=== PATIENT | female | born 1990 | race Caucasian/White ===

== ENCOUNTER 2017-10-24 02:15 | Emergency (ER) | payer BC, SELFPAY ==
[2017-10-24 02:17] VITALS: BP 139/81; PULSE 68; RESP 15; TEMP 36.5; O2SAT 98; BMI 21.9
--- NOTE | 2017-10-24 03:15 | RAD_ITS ---
STUDY: X-RAY CHEST REASON FOR EXAM: Female, 27 years old. Cough TECHNIQUE: 2 views COMPARISON: None. FINDINGS: The lungs are clear and expanded. There is no demonstrated pleural abnormality. Normal size heart. Normal mediastinum and brandi. Normal visualized pulmonary arteries. Normal visualized aortic arch and descending thoracic aorta. Normal visualized thoracic spine. Normal visualized ribs, clavicles, and shoulders. There is no demonstrated abnormality of the visualized soft tissue structures of the upper abdomen. RAD/Chest PA and Lateral IMPRESSION: Normal x-ray examination of the chest. No acute findings in the lungs Electronically Signed: Buddy Gilbert, at 3:57 EST Tel , Service support ,
[2017-10-24] MEDS: 0.9% Normal Saline 1,000 ML 999 ML IV (03:35)
[2017-10-24] MEDS: Ketorolac 30 MG/ML Syringe IV (03:35)
[2017-10-24 03:45] LABS: Absolute Neutrophil Count 9.3 X10^3/uL (2.0-7.7); Basophil# 0.06 X10^3/uL; Basophil% 0.5 % (0-1); Eosinophil# 0.36 X10^3/uL; Hemoglobin 13.1 g/dl (12.0-15.0); Lymphocyte % 10.1 % (19-41); Mean Corp Hgb Conc 34.5 g/gl (32-36); Mean Corpuscular Hgb 29.8 pg (27.0-32.0); Mean Corpuscular Volume 86.4 fL (81-99); Mean Platelet Vol. 9.5 fl (6.2-12.0); Monocyte# 0.89 X10^3/uL; Monocyte% 7.5 % (0-10); Neutrophil # 9.32 X10^3/uL (2.7-7.7); Neutrophil % 78.7 % (47-70); Platelet Count 211 K/mm3 (150-450); RBC Distribution Width CV 12.4 % (11.6-14.6); RBC Distribution Width SD 38.8 fl (35.1-43.9); White Blood Count 11.9 K/mm3 (4.4-11.0)
[2017-10-24 03:46] LABS: POSITIVE COUNT NO; POSITIVE DIFFERENTIAL NO; POSITIVE MORPHOLOGY NO
[2017-10-24 03:58] LABS: ALB/GLOB Ratio 1.1 RATIO (0.9-2.4); AST(SGOT) 129 U/L (15-37); Alanine Aminotransfer ALT/SGPT 100 U/L (13-56); Albumin, Serum 3.6 g/dL (3.2-5.0); Alkaline Phosphatase 71 U/L (45-117); Anion Gap 8 (5-15); BUN 11 mg/dL (7-18); BUN/Creat Ratio 12.7 RATIO (10-20); Calcium,Total 8.3 mg/dL (8.5-10.1); Chloride 105 mmol/L (98-107); Creatinine, Serum 0.87 mg/dL (0.55-1.02); EST Glomerular Filtration Rate 84 mL/min (>60); Est Glom Filt Rate - Afr Amer 101 mL/min (>60); Estimated Creatinine Clearance 95.29 ml/min; Globulin 3.3 g/dL (2.2-4.2); Glucose 103 mg/dL (74-106); Lipase 1128 U/L (73-393); Potassium 3.9 mmol/L (3.5-5.1); Protein, Total 6.9 g/dL (6.4-8.2); Sodium Level 140 mmol/L (136-145)
[2017-10-24 04:01] LABS: Pregnancy, Serum, hCG Quali. NEGATIVE Negative (0-9 Nonpreg)
--- NOTE | 2017-10-24 04:16 | US_ITS ---
STUDY: ULTRASOUND GALLBLADDER REASON FOR VISIT: Female, 27 years old. Abdominal pain TECHNIQUE: Ultrasound evaluation of the gallbladder was performed with real-time and static davis-scale imaging. TECHNICAL QUALITY: Adequate. COMPARISON: None. FINDINGS: Gallbladder: Normal distended gallbladder. The gallbladder wall measures 1.9 mm. There is a negative sonographic Arellano's sign. There is no pericholecystic fluid. There are no gallstones. Common Bile Duct (C.B.D.): The common bile duct measures 1.8 mm. US/Gallbladder IMPRESSION: Normal gallbladder ultrasound examination. Electronically Signed: Buddy Gilbert, at 6:01 EST Tel , Service support ,
--- NOTE | 2017-10-24 06:28 | ED.VISSUMM ---
- ER Visit Summary Date of Service: 10/24/17 Chief Complaint: Sore throat History of Present Illness: The patient is a 27 F who complains of 3 days of sore throat and fever to 101 congestion rhinorrhea and cough. She does note muscle and joint aches. However tonight she developed burning epigastric abdominal pain. No vomiting or diarrhea. Physical Examination: Afebrile vitals are unremarkable Moist mucous membranes Heart regular rate and rhythm Lungs are clear Abdomen soft there is no reproducible tenderness she is nondistended Alert Test Results: Laboratory studies notable for white blood cell count 11.9 ALT 100 AST 129 lipase 1128. negative. Right upper quadrant ultrasound normal. Emergency Department Course and Treatment: She is currently on minocycline for acne. Therefore initially given reports of burning epigastric abdominal pain and no reproducible tenderness I felt this may be gastritis. However she had no improvement with a GI cocktail. Therefore she was given IV fluids Toradol and laboratory studies were obtained. She reported significant improvement in her symptoms. Given elevated LFTs and lipase I was concerned for possible gallstone pancreatitis. A right upper quadrant ultrasound was normal. I discussed hospital observation with the patient for symptom control repeat labs. The patient does not wish to stay. After discussion of risks and benefits she decided to leave AGAINST MEDICAL ADVICE. She stands she is welcome to return at any point. She was referred to general surgery and also advised to call her primary care physician for a follow-up appointment as soon as possible. Patient discharged AGAINST MEDICAL ADVICE. Treatment Plan: [] Disposition: AGAINST MEDICAL ADVICE Impression: Pancreatitis This note was generated with [employer] dictation software. It may contain incorrect words, spelling, and punctuation that were not noted in review of the chart prior to signing ED Disposition - Plan for ED Patient: Chief Complaint: General Illness Referrals: Alejo Sands [Primary Care Provider] -
--- NOTE | 2017-10-24 06:30 | ED.DEP ---
ED Disposition - Plan for ED Patient: Chief Complaint: General Illness Instructions: ED Pancreatitis Referrals: Alejo Sands [Primary Care Provider] -
[2017-10-24 06:45] VITALS: BP 110/67; PULSE 68; RESP 17; O2SAT 98
--- NOTE | 2017-10-24 06:46 | ED.RN ---
IV DC'ED, CATHETER INTACT, SMALL GAUZE DRESSING PLACED. DISCHARGE INSTRUCTIONS GIVEN TO AND REVIEWED WITH PATIENT, PATIENT DENIES QUESTIONS OR CONCERNS AND VOICES UNDERSTANDING OF DISCHARGE INSTRUCTIONS. AMA PAPERS SIGNED AND REVIEWED WITH PATIENT, PATIENT AMBULATES OUT OF ROOM WITHOUT DIFFICULTY.
== END 2017-10-24 06:46 | disposition home or self-care (01) ==
PROVIDERS: Emergency Provider Emergency Medicine; Family Provider Nurse Practitioner Family; PCP Nurse Practitioner Family
DX: K85.90 Acute pancreatitis without necrosis or infection, unspecified (principal); L70.9 Acne, unspecified; Z79.899 Other long term (current) drug therapy
CPT/HCPCS: 71046; 76705; 80053; 83690; 84703; 85025; 96361; 96374; 99284; J7030

== ENCOUNTER → 2017-10-28 16:40 | Outpatient (CLI) | payer BC, SELFPAY ==
[2017-10-28 18:03] LABS: Amylase 62 U/L (25-115); Lipase 159 U/L (73-393)
== END ==
PROVIDERS: Family Provider Nurse Practitioner Family; PCP Nurse Practitioner Family; Visit Provider Nurse Practitioner Family
DX: R74.8 Abnormal levels of other serum enzymes (principal)
CPT/HCPCS: 36415; 82150; 83690

== ENCOUNTER → 2017-11-25 08:50 | Outpatient (CLI) | payer BC, SELFPAY ==
[2017-11-25 10:19] LABS: Internal QC Validated? YES +Cl - CLEAR BKGD; Pregnancy, Urine Negative Negative
== END ==
PROVIDERS: Family Provider Nurse Practitioner Family; PCP Nurse Practitioner Family; Visit Provider Physician Assistant
DX: L70.0 Acne vulgaris (principal); Z79.899 Other long term (current) drug therapy
CPT/HCPCS: 81025

== ENCOUNTER → 2017-12-30 08:31 | Outpatient (CLI) | payer BC, SELFPAY ==
[2017-12-30 10:22] LABS: Internal QC Validated? YES +Cl - CLEAR BKGD; Pregnancy, Urine Negative Negative
== END ==
PROVIDERS: Family Provider Nurse Practitioner Family; PCP Nurse Practitioner Family; Visit Provider Physician Assistant
DX: L70.0 Acne vulgaris (principal); Z79.899 Other long term (current) drug therapy
CPT/HCPCS: 81025

== ENCOUNTER → 2018-01-27 09:10 | Outpatient (CLI) | payer BC, SELFPAY ==
--- NOTE | 2018-01-27 09:14 | RAD_ITS ---
STUDY: AIR-CONTRAST UPPER GI SERIES. REASON FOR EXAM: Female, 27 years old. Abdominal and epigastric pain. FLUOROSCOPY TIME (if supplied): (0:46) minutes/seconds TECHNIQUE: The patient ingested barium. Multiple images of the esophagus, stomach and duodenum were obtained. COMPARISON: None. FINDINGS: The esophagus is unremarkable. There is no evidence of gastroesophageal reflux. No obstruction is seen. The stomach and duodenum are unremarkable. There is no evidence of ulceration. No mass lesion is seen. RAD/Upper GI Series Only IMPRESSION: Unremarkable air contrast upper G I series. Electronically Signed: Walter Sweet MD at 11:08 EDT Tel [phone], Service support ,
== END ==
PROVIDERS: Family Provider Nurse Practitioner Family; PCP Nurse Practitioner Family; Visit Provider Nurse Practitioner Family
DX: R10.13 Epigastric pain (principal)
CPT/HCPCS: 74246

== ENCOUNTER → 2018-01-31 11:53 | Outpatient (CLI) | payer BC, SELFPAY ==
--- NOTE | 2018-01-31 11:55 | NM_ITS ---
Procedure: Hepatobiliary scan with ejection fraction. History: Abdominal pain. Comparison: Ultrasound 10/24/2017 Technique: Patient was given a dose of 5.2 mCi technetium Choletec. Imaging was performed for approximately 90 minutes Findings: There is normal tracer uptake by liver. Common bile duct activity is seen by 10 minutes. Small bowel activity seen by 30 minutes. Gallbladder activity is first seen by 10 minutes and increases normally over the course of the exam. Ejection fraction after the administration of a fatty meal is 26%, below normal limits. NM/Hepatobilliary Img w/Pharm Int IMPRESSION: Normal hepatobiliary scan. Normal gallbladder activity. Abnormally low ejection fraction of 26%. Note however that normal ejection fraction values were established for CCK injection rather than oral fatty meal. Electronically Signed: Vinod Falcon MD at 23:25 EDT , Service support ,
== END ==
PROVIDERS: Family Provider Nurse Practitioner Family; PCP Nurse Practitioner Family; Visit Provider Nurse Practitioner Family
DX: K82.8 Other specified diseases of gallbladder (principal)
CPT/HCPCS: 78227; A9537

== ENCOUNTER → 2018-02-15 08:19 | Outpatient (CLI) | payer BC, SELFPAY ==
--- NOTE | 2018-02-15 08:19 | DT_ITS ---
This patient was seen during an EMR downtime February 10, 2018 - February 17, 2018. This patient may have a combination of paper and electronic documentation or all paper documentation. All documentation is viewable within the e-chart portion of [facility] for each patient visit.
[2018-02-15 09:39] LABS: Internal QC Validated? YES +Cl - CLEAR BKGD; Pregnancy, Urine Negative Negative
== END ==
PROVIDERS: Family Provider Nurse Practitioner Family; PCP Nurse Practitioner Family; Visit Provider Physician Assistant
DX: L70.0 Acne vulgaris (principal); L55.0 Sunburn of first degree; Z79.899 Other long term (current) drug therapy
CPT/HCPCS: 81025

== ENCOUNTER 2018-03-03 05:37 | Day surgery (SDC) | payer BC, SELFPAY ==
[2018-03-03] VITALS (8 sets, daily range): BP systolic 110–128; BP diastolic 62–77; PULSE 58–90; RESP 14–16; TEMP 36.6–36.8; O2SAT 94–100; BMI 24.4
--- NOTE | 2018-03-03 05:44 | EKG12_ITS ---
Test Reason : PRE-OP Blood Pressure : / mmHG Vent. Rate : 064 BPM Atrial Rate : 064 BPM P-R Int : 158 ms QRS Dur : 094 ms QT Int : 424 ms P-R-T Axes : 022 031 021 degrees QTc Int : 437 ms Normal sinus rhythm Normal ECG Confirmed by SINAN FORTUNE, NILSON ([id number]), clinical editor ADAM CHARLTON ([id number]) on 03/07/2018 10:03:38 AM Referred By: Elvis Spencer Confirmed By:NILSON MENON MD
[2018-03-03 06:08] LABS: Internal QC Validated? YES +Cl - CLEAR BKGD; Pregnancy, Urine Negative Negative
--- NOTE | 2018-03-03 07:04 | PCM.DC.GS ---
Discharge Diet: Light diet - advance as tolerated - if you have questions about your diet instructions, please talk to you doctor. Discharge Activity: May Not Drive - for 1 week or while taking narcotic pain medicine. May shower in (days): 1 Lifting Restrictions: 10 pounds Call your doctor if your incision/area has: Continuous Slow Oozing, Sudden Increased Bleeding, Increased Pain/ Swelling, Increased Redness, Foul Smelling Discharge Call your doctor if you observe: Fever of 101 or Higher Suture Line Care: Avoid Pulling/Pushing, Avoid Pinching/Bending Additional Dressing/Incision Instructions:: Change or remove dressing in 4 days. Leave steri-strips in place for 1 week. Allergies/Adverse Reactions: Allergies Penicillins Allergy (Verified 03/01/18 09:25) Hives Medications to take at Discharge norgestimate 0.25 mg-ethinyl estradiol 35 mcg tablet 1 tab PO QDAY 02/24/18 Hydrocodone Bitart/Apap 5-325 [[place] 5MG-325MG] 1 tablet PO Q6H PRN PRN 2 Days #10 tablet 03/03/18 The following prescriptions were given: Hydrocodone Bitart/Apap 5-325 [[place] 5MG-325MG] 1 tablet PO Q6H PRN PRN 2 Days #10 tablet PRN Reason: Pain Primary Care Physician: Alejo Sands, ADAPTIVE PHYSICAL EDUCATION SPECIALIST-C [Primary Care Provider] - Please Follow Up With: Elvis Spencer MD - [phone] When: Call to make an appointment to be seen in about 10 days.
--- NOTE | 2018-03-03 07:15 | GALL_PTH ---
PATIENT: FERNY GRANT LOC: [facility] [place] U#:[id number] AGE/SX: 27/F ROOM: RE03/03/[address]: Dr. Elvis Spencer MD : 1990 BED: DIS: 03/03/2018 SPEC #: [id number] RECD: 03/04/18 07:16 STATUS: LILLY KAMALA #: [id number] COCO: 03/03/18 07:[address]: Elvis Spencer DEPT: SURGICAL PATHOLOGY RECD BY: Alexys Porter ENTERED: 03/04/18 11:01 SP TYPE: HORTENCIA RIVERS DR: Alejo Sands, ETL ANALYST-C Tissues: Gallbladder, NOS Procedures: Surgery Specimen Level III HEADER OPERATION: Laparoscopic cholecystectomy with intraoperative cholangiogram PRE-OP DIAGNOSIS: Gallstone pancreatitis TISSUE SUBMITTED: Gallbladder MICROSCOPIC DIAGNOSIS Gallbladder: Chronic cholecystis. No stones are identified in the container or in the gallbladder. A pericystic benign lymph node with reactive changes. SJ:andra 03/05/18 MICROSCOPIC DESCRIPTION Slides are reviewed. GROSS DESCRIPTION Received is one container labeled with the patient's name and designated gallbladder. The specimen consists of a gallbladder measuring 6 cm in length and up to 3 cm in diameter. The external surface is pink-rasmussen, smooth and glistening for the most part. Focally it is granular, hemorrhagic and contains cautery artifact. The gallbladder contains green-yellow mucoid bile and no stones are identified in the container or in the gallbladder. The mucosa is bile-stained and without any mass lesions. The gallbladder wall measures up to 0.2 cm in thickness. Also present close to the cystic duct is an ovoid piece of pink soft tissue, possible lymph node measuring 1 cm in greatest dimension. Door Liner Helper sections from the gallbladder and the cystic duct including possible lymph node are submitted in one cassette. / INDU:andra 03/03/18 TC:3 CPT: 58912 More sections of cystic duct and gallbladder wall is submitted in cassette #2. INDU:andra 03/05/18
--- NOTE | 2018-03-03 07:15 | RAD_ITS ---
STUDY: INTRAOPERATIVE CHOLANGIOGRAM. REASON FOR EXAM: Female, 27 years old. Laparoscopic cholecystectomy. FLUOROSCOPY TIME (if supplied): (15.7 seconds) minutes/seconds TECHNIQUE: An intraoperative quadrant was performed by the surgeon. Imaging was submitted. COMPARISON: None. FINDINGS: Contrast was injected into the cystic duct. The visualized intrahepatic biliary ducts and common bile duct are unremarkable. No intraluminal filling defect is seen. There is free flow of contrast into the duodenum. RAD/Cholangiogram/ O R,Initial IMPRESSION: Unremarkable intraoperative cholangiogram. Electronically Signed: Walter Sweet MD at 9:24 EDT Tel [phone], Service support ,
[2018-03-03] MEDS: Bupivacaine Mpf 0.5% 30 ML VIAL (08:00)
--- NOTE | 2018-03-03 08:24 | OP.PCM_ITS ---
Problem List (1) Gallstone pancreatitis Status: Acute Report of Operation Date of Procedure: 03/03/18 Pre-Operative Diagnosis: Gallstone pancreatitis Post-Operative Diagnosis: Same Surgery/Procedure Performed:: Laparoscopic cholecystectomy with cholangiography Description of Surgical Findings:: Timeout and informed consent was obtained. 27-year-old female was taken to the operating room. She was placed supine on the table. She underwent general endotracheal intubation anesthesia. Clindamycin 900 mg are given intravenous preoperatively. The abdomen was sterilely prepped and draped. 0.5% Marcaine was used as a local anesthetic. Throughout the procedure a total of 30 cc was used. Skin sites were pre-anesthetized. A vertical infraumbilical incision was created. Holding sutures of 0 Vicryl placed. Veress needle inserted. The abdomen was insufflated with CO2 to a pressure of 10 mmHg pressure. Primary trocar inserted. Timeout scope inserted. No evidence of any trocar injuries. Under conization 500 ports were placed in the epigastric and right upper quadrant area and an alligator clip in the right lateral abdomen. The abdomen was inspected there was no evidence of any superficial abnormalities there were some loose adhesions of omentum to the gallbladder. These gallbladder adhesions were dissected free after the alligator clip was used to help distract and left the right lobe of the liver. Hemoclips were used where needed for hemostasis. The infundibular of the gallbladder was carefully and tediously dissected free. There was a very dominant right hepatic artery. The cystic artery was quite foreshortened. The critical view was achieved. A Hemoclip was placed on the cystic duct stump incision made in the cystic duct and through a 14-gauge Angiocath and cholangiogram catheter was inserted. Fluoroscopic control can plan transfer obtained demonstrating normal ductal anatomy and free flow into the small bowel. The cholangiogram catheter was removed and 2 hemoclips were placed on the cystic duct stone prior to transecting it. The cystic artery was clipped twice proximally to prior to transecting it. There was felt to be a posterior cystic artery or potentially Dr. Kusilvak but it was secured with a Hemoclip as well. The gallbladder was dissected free from the liver bed using electrocautery. Complete hemostasis was intact. Gallbladder was placed in a retrieval bag. The hepatic bed was carefully inspected was noted to be hemostatic there was absolutely no evidence of any bile leakage. The gallbladder was exited at the umbilicus. The remaining trochars removed under visualization. The abdomen was allowed to deflate of the CO2. The fascia at the umbilicus approximated with a figure 8 suture of 0 Vicryl. Skin edges were approximated with interrupted 4-0 Monocryl. Steri-Strips and Telfa and OpSite dressings applied. Sponge and instrument and needle counts were reported to the surgeon be correct. The patient tolerated the procedure well was taken to the recovery area in satisfactory condition. Specimens gallbladder. Drains none. Blood loss minimal. Elvis Spencer M.D., F.A.C.S. Type of Anesthesia:: General Anesthesiologist: Paula Bran
[2018-03-03] MEDS: HYDROcodone Bitartrate/Apap 5/325 Tablet PO (10:17)
== END 2018-03-03 11:54 | disposition home or self-care (01) ==
LOC: SDC 05:39 → AC 07:04
PROVIDERS: Family Provider Nurse Practitioner Family; PCP Nurse Practitioner Family; Visit Provider Surgery
PROC: (CPT 47610; principal; 2018-03-03 06:55)
DX: K81.1 Chronic cholecystitis (principal); J45.909 Unspecified asthma, uncomplicated; Z87.891 Personal history of nicotine dependence
CPT/HCPCS: 47563; 74300; 76000; 81025; 88304; 93005; J7120; J2405

== ENCOUNTER 2018-11-11 11:11 | Emergency (ER) | payer MEDICAID, SELFPAY ==
[2018-11-11 11:12] VITALS: BP 121/68; PULSE 98; RESP 12; TEMP 36.9; O2SAT 95; BMI 25.7
--- NOTE | 2018-11-11 11:36 | CT_ITS ---
STUDY: CT ABDOMEN AND PELVIS WITH CONTRAST REASON FOR EXAM: Female, 28 years old. Right upper quadrant pain. Anorexia. Nausea and vomiting. RADIATION DOSAGE (If Supplied By Facility): CTDIvol = ( 14.38 ) mGy, DLP = ( 815.51 ) mGycm TECHNIQUE: Transaxial images were obtained from the dome of the diaphragm to the symphysis pubis with oral contrast. Isovue 300 100 IV/Oral was administered. Sagittal and coronal images were reconstructed. Individualized dose optimization techniques were used for this CT. COMPARISON: None. FINDINGS: The visualized lung bases are unremarkable. The visualized portions of the heart are within normal limits. Normal liver. The patient is status post cholecystectomy. Normal spleen. Normal pancreas. Normal bilateral adrenal glands. Normal right kidney. Normal left kidney. There is a small hiatal hernia. Normal small intestine. Normal colon. The appendix is visualized and appears normal. Normal abdominal aorta. Normal inferior vena cava. Normal retroperitoneum. Normal urinary bladder. Small follicles are seen in both ovaries. Normal abdominal wall. Normal osseous structures. CT/Abdomen/Pelvis WITH Contrast IMPRESSION: Normal enhanced CT of the abdomen and pelvis. Electronically Signed: Walter Sweet, at 13:48 EST , Service support ,
[2018-11-11] MEDS: Ondansetron 4 MG/2 ML Vial IV (12:00)
[2018-11-11] MEDS: Morphine 4 MG/ML Syringe IV (12:01)
[2018-11-11] MEDS: 0.9% Normal Saline 1,000 ML 1000 ML IV (12:02)
[2018-11-11 12:14] LABS: Absolute Lymphocyte Count 0.48 X10^3/ul (0.83-4.51); Absolute Neutrophil Count 7.8 X10^3/uL (2.0-7.7); Basophil# 0.02 X10^3/uL; Basophil% 0.2 % (0-1); Eosinophil# 0.15 X10^3/uL; Eosinophils% 1.7 % (0-5); Hematocrit 43.8 % (37-47); Hemoglobin 14.5 g/dl (12.0-15.0); Lymphocyte # 0.48 X10^3/ul (4.0); Lymphocyte % 5.4 % (19-41); Mean Corp Hgb Conc 33.1 g/gl (32-36); Mean Corpuscular Volume 87.6 fL (81-99); Mean Platelet Vol. 9.3 fl (6.2-12.0); Monocyte# 0.36 X10^3/uL; Monocyte% 4.1 % (0-10); Neutrophil # 7.84 X10^3/uL (2.7-7.7); Neutrophil % 88.5 % (47-70); Platelet Count 189 K/mm3 (150-450); RBC Distribution Width CV 12.8 % (11.6-14.6); White Blood Count 8.9 K/mm3 (4.4-11.0)
[2018-11-11 12:15] LABS: Differential Indicated SCAN CRITERIA MET; POSITIVE COUNT NO; POSITIVE DIFFERENTIAL YES; POSITIVE MORPHOLOGY NO
[2018-11-11 12:35] LABS: Anion Gap 10 (5-15); BUN 16 mg/dL (7-18); Calcium,Total 8.3 mg/dL (8.5-10.1); Chloride 106 mmol/L (98-107); Creatinine, Serum 0.84 mg/dL (0.55-1.02); EST Glomerular Filtration Rate 86 mL/min (>60); Est Glom Filt Rate - Afr Amer 104 mL/min (>60); Estimated Creatinine Clearance 101.48 ml/min; Glucose 125 mg/dL (74-106); Sodium Level 141 mmol/L (136-145)
--- NOTE | 2018-11-11 12:40 | ED.VIS.GEN ---
History of Present Illness Chief Complaint: Abd Pain Detail of Chief Complaint: Abdominal pain with nausea and vomiting Informant: Patient, Family Onset: Yesterday Context: Sudden Onset Timing: Continuous Quality: Sharp Location: Predominantly right side Current Severity: Moderate Maximum Severity: Severe Worsened by: Walking Relieved by: Nothing Associated Symptoms: Cold sweats, anorexia Narrative: [age]-year-old female who presents with right-sided abdominal pain with nausea, vomiting and anorexia. She reports cold sweats. She is status post cholecystectomy. She denies cardiac respiratory symptoms. She denies history of renal ureterolithiasis. She denies dysuria, frequency, urgency or hematuria. She states this pain reminds her of the pain she had prior to removal of her gallbladder by Dr. Jaren Escobar. There is no history of trauma. She denies rash or skin lesions. Prior similar symptoms: Yes - Please read Recent Illness/Hospitalization: No Past Medical History - Allergies and Home Meds Allergies/Adverse Reactions: Allergies Penicillins Allergy (Verified 11/11/18 11:12) Hives Primary Care Physician: Alejo Sands, HEAD WOOD GRINDER-C [Primary Care Provider] - As Needed Prior records reviewed: Yes Surgical History: cholecystectomy Lives: With Family Smoking Status: Never smoker Alcohol: Rare Drugs: None Review of Systems General: Reports: Malaise, Sweats. Denies: Chills, Fever, Weight loss Eyes: Denies: Visual changes - bilaterally, Blurred Vision - bilaterally, Diplopia ENT: Denies: Bilateral ear pain, Rhinorrhea, Sore throat Cardiovascular: Denies: Chest pain, Palpitations Respiratory: Denies: Dyspnea, Cough, Dyspnea on exertion Gastrointestinal: Reports: Abdominal pain, Nausea, Vomiting. Denies: Diarrhea, Constipation, Melena, Hematochezia Genitourinary: Denies: Dysuria, Hematuria, Frequency Musculoskeletal: Denies: Myalgias, Arthralgias, Neck pain, Back pain, Swelling, Extremity Pain Skin: Denies: Rash, Wounds Neurological: Denies: Headache, Weakness, Numbness Endocrine: Denies: Polyuria, Polydipsia Hematologic: Denies: Easy bruising, Easy bleeding Physical Exam Vital Signs/Narrative: Vital Signs Temp Pulse Resp BP Pulse Ox 11/11/18 11:12 98.4 F 98 12 121/68 H 95 Inital Vital Signs reviewed: Yes General: Well nourished, Well developed, Acute Distress Head: Normocephalic, Atraumatic. Negative for: Trauma Eyes: Perrl, EOMI. Negative for: Pale conjunctiva, Scleral icterus ENT: No rhinorrhea, TM's clear, Dry mucous membranes, Nasal congestion Neck: Supple, Nontender, No lymphadenopathy, No JVD Cardiovascular: Regular rate, Regular rhythm, No murmurs, Normal S1, Normal S2 Respiratory: No distress, CTA bilaterally, Chest nontender. Negative for: Decreased Air Movement Abdomen: Soft, No masses, Tender, Guarding, - - Point of maximal tenderness slightly above McBurney's point. Negative for: Nontender, Nondistended, Normal bowel sounds, Rebound tenderness, Hyperactive bowel sounds, Hypoactive bowel sounds, Hepatomegaly, Splenomegaly, Psoas sign, Obturator sign, Rovsig's sign, Arellano's sign Rectal: Deferred Back: Nontender, Normal Inspection. Negative for: CVA tenderness Extremities: Nontender, No edema. Negative for: Calf Tenderness Skin: Normal color, No rash. Negative for: Cyanosis, Jaundice Neurological: Alert, Oriented x3, Cranial nerves II-XII grossly intact, Normal Strength, Normal Sensation Psychological: Normal affect, Normal Mood Diagnostic/Tx/Re-eval CBC, basic metabolic panel and UA are unremarkable. CT of the abdomen reviewed by me and interpreted radiologist as normal. - Medical Decision Making With nausea, vomiting, anorexia and maximal point of tenderness in the proximity McBurney's point will obtain CBC, basic metabolic panel and serum test. CT of the abdomen with contrast was ordered to evaluate for appendicitis. Differential would include ovarian cyst, , mesenteric adenitis. Patient was reassessed at 1410. She is no longer pale. The nausea and vomiting has resolved. The pain has improved markedly. ED Disposition - Plan for ED Patient: Disposition: Home or Assisted Living Diagnosis: Abdominal pain with vomiting, Mild dehydration Instructions: ED Nausea Vomiting Referrals: Alejo Sands, ANI-C [Primary Care Provider] - As Needed
[2018-11-11 12:52] LABS: Pregnancy, Serum, hCG Quali. NEGATIVE Negative (0-9 Nonpreg)
[2018-11-11 13:29] LABS: Bacteria 0 SEEN /hpf (None Seen); Mucous, Urine 0 SEEN /hpf (<or=2+); White Blood Cells 0 SEEN /hpf (0-5)
[2018-11-11 13:31] LABS: Color, Urine Yellow (Yellow); Glucose, Dipstick Normal (Normal); Ketone-Dipstick Negative (Negative); Leukocyte Esterase-Dipstick Negative /ul (Negative); Nitrite-Dipstick Negative (Negative); Occult Blood-Urine 10 /ul (Negative); Protein-Dipstick Negative (Negative); Urine Bilirubin Dipstick Negative (Negative); Urine Clarity Sl. Cloudy (Clear); Urine Urobilinogen Normal (Normal)
[2018-11-11 13:37] LABS: Red Blood Cells-Urine 0-5 SEEN /hpf (0-5); Squamous Epithelial Cells - UA 0-5 SEEN /hpf (5-10)
[2018-11-11 14:09] VITALS: BP 115/59; PULSE 89; RESP 16; O2SAT 98
[2018-11-11 14:22] VITALS: BP 118/61; PULSE 79; RESP 16; O2SAT 99
== END 2018-11-11 14:24 | disposition home or self-care (01) ==
PROVIDERS: Emergency Provider Emergency Medicine; Family Provider Nurse Practitioner Family; PCP Nurse Practitioner Family
DX: R10.9 Unspecified abdominal pain (principal); R11.2 Nausea with vomiting, unspecified; E86.0 Dehydration
CPT/HCPCS: 74177; 80048; 81001; 84703; 85025; 96361; 96374; 96375; 99283; J7030; Q9967; A4216; J2405

== ENCOUNTER → 2018-12-03 13:17 | Outpatient (CLI) | payer MEDICAID, SELFPAY ==
[2018-11-11 11:12] VITALS: BMI 25.7
--- NOTE | 2018-12-03 13:22 | MRI_ITS ---
STUDY: MR CHOLANGIOPANCREATOGRAPHY (MRCP) REASON FOR EXAM: Female, 28 years old. Right upper quadrant pain, pain after meals. Prior cholecystectomy February 2018. TECHNIQUE: Multisequence multiplanar MRI of the abdomen without contrast with MRCP including 3-D volumetric reformatted images. COMPARISON: None. FINDINGS: Osseous structures: Unremarkable. Body wall soft tissues: Unremarkable. Inferior chest: Unremarkable. Hepatobiliary: Hepatomegaly, craniocaudal right liver 20.4 cm. Nondilated intrahepatic biliary tree. Nondilated common bile duct. No evidence of choledocholithiasis. Pancreas: Normal. No ductal ectasia. Spleen: Normal. Adrenal glands: Normal. Urinary tract: There is a tiny T2 hyperintense circumscribed oval cystlike focus in the mid polar posterior cortex of the left kidney, measuring 5.7 mm, stable compared to prior imaging. Simple cystic features on CT and MRI. Normal right kidney. Normal collecting systems and proximal ureters. Retroperitoneum: No mass or lymphadenopathy. Vasculature: Normal. Stomach: Normal. Small and large bowel: Evaluated portions exhibit no acute process. MRI/MRCP Abdomen without Contrast IMPRESSION: Gallbladder surgically absent. Normal intrahepatic and extrahepatic biliary tree with no evidence of choledocholithiasis. No pancreatic ductal ectasia. Hepatomegaly. Electronically Signed: Alejo Gillette MD at 15:17 EDT Tel , Service support ,
== END ==
PROVIDERS: Family Provider Nurse Practitioner Family; PCP Nurse Practitioner Family; Referring Provider Nurse Practitioner Family; Visit Provider Nurse Practitioner Family
DX: R10.11 Right upper quadrant pain (principal)
CPT/HCPCS: 74181

== ENCOUNTER 2019-01-28 03:45 | Emergency (ER) | payer MEDICAID, SELFPAY ==
[2019-01-28 03:46] VITALS: BP 142/97; PULSE 78; RESP 14; TEMP 36.7; O2SAT 98; BMI 26.6
--- NOTE | 2019-01-28 04:10 | RAD_ITS ---
STUDY: X-RAY - ACUTE ABDOMINAL SERIES REASON FOR EXAM: Female, 28 years old. Abdominal pain. Patient has had a cholecystectomy. TECHNIQUE: Single view of the chest. Supine, and erect view(s) of the abdomen were obtained. COMPARISON: CT of the abdomen and pelvis dated November 11, 2018. FINDINGS: The lungs are clear and expanded. There is borderline cardiomegaly. Normal mediastinum and brandi. Normal visualized pulmonary arteries. Normal visualized aortic arch and descending thoracic aorta. There is a non-specific bowel gas pattern. There is no obvious visceromegaly, mass or dilated bowel. A very little stool is visible with the air-fluid levels within the colon suggesting possible diarrhea. Normal visualized osseous structures. RAD/Acute Abdomen Inc Chest IMPRESSION: Very little solid stool is visible in the colon with air-fluid levels in the colon suggesting possible diarrhea. Electronically Signed: Latanya Elliott MD at 4:32 EDT , Service support ,
--- NOTE | 2019-01-28 04:17 | ED.DCSUM_ITS ---
History of Present Illness Chief Complaint: Abd Pain Informant: Patient - Abdominal Pain/Flank Pain Onset: Yesterday Context: - - chronic pain, gradually worse, most of the day Timing: Continuous Quality: Aching, Dull Location: - - right side Current Severity: Severe Maximum Severity: Severe Worsened by: Nothing Relieved by: Nothing - Nausea/Vomiting/Emesis GI Symptom: Nausea, Vomiting Onset: Yesterday Quality: Nonbilious. Negative for: Blood streaks, Coffee ground, Hematemesis - Diarrhea/Melena/Hematochezia GI Symptom: Negative for: Diarrhea, Melena, Hematochezia Associated Symptoms: Negative for: Dysuria, Frequency, Hematuria Narrative: Patient has had abdominal pain along with nausea and vomiting for over a year, she has had extensive work-up including a cholecystectomy which did not solve her pain. She has an appointment with GI for scopes but not until March which is over a month away. She has never had a scope for any of this. She is on dicyclomine and ibuprofen but it is not helping since her pain worsen from unknown cause, gradually, this past day. She has been to the ER for this before. She has had CAT scans, extensive testing, none of which have shown the answer. Her appendix has repeatedly been read as normal. She denies having any urinary or vaginal symptoms. She denies any new symptoms, all of the symptoms are the same as usual but just worse in severity. Prior similar symptoms: Yes - same as chronic pain Past Medical History - Allergies and Home Meds Allergies/Adverse Reactions: Allergies Penicillins Allergy (Verified 01/28/19 03:46) Hives Primary Care Physician: Alejo Sands, [employer] [Primary Care Provider] - Past Medical History: None Surgical History: cholecystectomy Smoking Status: Never smoker Alcohol: None Review of Systems General: Denies: Chills, Fever, Sweats Eyes: Denies: Visual changes - bilaterally, Diplopia ENT: Denies: Rhinorrhea, Sore throat Cardiovascular: Denies: Chest pain, Palpitations Respiratory: Denies: Dyspnea, Cough, Dyspnea on exertion Gastrointestinal: Reports: Abdominal pain, Nausea, Vomiting. Denies: Diarrhea, Constipation, Melena, Hematochezia Genitourinary: Denies: Dysuria, Hematuria, Frequency Musculoskeletal: Denies: Neck pain, Back pain, Swelling, Extremity Pain Skin: Denies: Rash, Wounds Neurological: Denies: Headache, Weakness, Numbness Physical Exam Vital Signs/Narrative: Vital Signs Temp Pulse Resp BP Pulse Ox 01/28/19 03:46 98.1 F 78 14 142/97 H 98 Inital Vital Signs reviewed: Yes General: Well nourished, Well developed, No Acute Distress Head: Normocephalic, Atraumatic Eyes: Perrl, EOMI ENT: Moist mucous membranes, No rhinorrhea Neck: Supple, Nontender Cardiovascular: Regular rate, Regular rhythm, No murmurs Respiratory: No distress, CTA bilaterally, Chest nontender Abdomen: Soft, Nondistended, Normal bowel sounds, No masses, Tender - throughout right abd. Negative for: Guarding, Rebound tenderness, Obturator sign, Rovsig's sign, Arellano's sign Back: Nontender, Normal Inspection. Negative for: CVA tenderness Extremities: Nontender, No edema Skin: Normal color, No rash, No Trauma Neurological: Alert, Oriented x3, Cranial nerves II-XII grossly intact, Normal Strength, Normal Sensation Psychological: Normal affect, Normal Mood Diagnostic/Tx/Re-eval Impressions Acute Abdomen Series 01/28/19 04:10 IMPRESSION: Very little solid stool is visible in the colon with air-fluid levels in the colon suggesting possible diarrhea. Electronically Signed: Latanya Elliott MD at 4:32 EDT , Service support , 01/28/19 04:10 Acute Abdomen Inc Chest [RAD] Stat Laboratory Results 01/28/19 01/28/19 04:30 04:30 WBC 6.6 RBC 4.88 Hgb 13.7 Hct 40.5 MCV 83.0 MCH 28.1 MCHC 33.8 RDW 12.7 RDW Differential 38.2 Plt Count 244 MPV 9.4 Immature Gran % (Auto) 0.300 Neut % (Auto) 42.9 L Lymph % (Auto) 30.5 [place] % (Auto) 7.6 Eos % (Auto) 18.1 H Baso % (Auto) 0.6 Absolute Neuts (auto) 2.8 Absolute Lymphs (auto) 2.02 Total Counted Not Reportable Sodium 140 Potassium 3.8 Chloride 107 Carbon Dioxide 26.0 Anion Gap 7 BUN 11 Creatinine 0.80 Estim Creat Clear Calc 106.56 Est GFR (MDRD) Af Amer 109 Est GFR (MDRD) Non-Af 90 BUN/Creatinine Ratio 13.7 Glucose 102 Calcium 8.5 Total Bilirubin 0.30 AST 19 ALT 26 Alkaline Phosphatase 48 Total Protein 7.0 Albumin 3.6 Globulin 3.4 Albumin/Globulin Ratio 1.1 Lipase 148 - Medical Decision Making I had labs drawn because the patient actually did have an elevated lipase at one point last year and then a normal gallbladder ultrasound, followed by the fact that she has persistent symptoms after cholecystectomy. Reassuringly, today all of her labs are normal. Acute abdominal series shows some scattered air-fluid levels which are nonspecific, but no free air or signs of a perforated viscus. She was treated with morphine and feels much better and appears more comfortable. I feel comfortable letting her go. I do not think we are dealing with acute appendicitis, she is encouraged to follow-up with her GI appointment for endoscopy that will hopefully give her more answers or direction. She agrees and is comfortable with this plan. ED Disposition - Plan for ED Patient: Disposition: Home or Assisted Living Diagnosis: Right-sided abdominal pain of unknown cause Instructions: ED Abdominal Pain Unkn Cause Referrals: Alejo Sands, [employer] [Primary Care Provider] - 1 Week if not improving (and/or GI earlier, if able)
[2019-01-28] MEDS: Morphine 4 MG/ML Syringe IV (04:28)
[2019-01-28] MEDS: Ondansetron 4 MG/2 ML Vial IV (04:28)
[2019-01-28 04:39] LABS: Absolute Lymphocyte Count 2.02 X10^3/ul (0.83-4.51); Absolute Neutrophil Count 2.8 X10^3/uL (2.0-7.7); Basophil# 0.04 X10^3/uL; Basophil% 0.6 % (0-1); Eosinophils% 18.1 % (0-5); Hematocrit 40.5 % (37-47); Hemoglobin 13.7 g/dl (12.0-15.0); Lymphocyte # 2.02 X10^3/ul (4.0); Lymphocyte % 30.5 % (19-41); Mean Corp Hgb Conc 33.8 g/gl (32-36); Mean Corpuscular Hgb 28.1 pg (27.0-32.0); Mean Platelet Vol. 9.4 fl (6.2-12.0); Monocyte% 7.6 % (0-10); Neutrophil # 2.84 X10^3/uL (2.7-7.7); Neutrophil % 42.9 % (47-70); Platelet Count 244 K/mm3 (150-450); RBC Distribution Width CV 12.7 % (11.6-14.6); RBC Distribution Width SD 38.2 fl (35.1-43.9); Red Blood Count 4.88 M/mm3 (4.2-5.4); White Blood Count 6.6 K/mm3 (4.4-11.0)
[2019-01-28 04:41] LABS: POSITIVE COUNT NO; POSITIVE DIFFERENTIAL NO; POSITIVE MORPHOLOGY NO
[2019-01-28 04:54] LABS: ALB/GLOB Ratio 1.1 RATIO (0.9-2.4); AST(SGOT) 19 U/L (15-37); Alanine Aminotransfer ALT/SGPT 26 U/L (13-56); Albumin, Serum 3.6 g/dL (3.2-5.0); Alkaline Phosphatase 48 U/L (45-117); Anion Gap 7 (5-15); BUN 11 mg/dL (7-18); BUN/Creat Ratio 13.7 RATIO (10-20); Calcium,Total 8.5 mg/dL (8.5-10.1); Chloride 107 mmol/L (98-107); EST Glomerular Filtration Rate 90 mL/min (>60); Est Glom Filt Rate - Afr Amer 109 mL/min (>60); Estimated Creatinine Clearance 106.56 ml/min; Globulin 3.4 g/dL (2.2-4.2); Glucose 102 mg/dL (74-106); Lipase 148 U/L (73-393); Potassium 3.8 mmol/L (3.5-5.1); Sodium Level 140 mmol/L (136-145)
[2019-01-28 05:52] VITALS: BP 127/83; PULSE 71; RESP 14; O2SAT 99
== END 2019-01-28 05:52 | disposition home or self-care (01) ==
PROVIDERS: Emergency Provider Emergency Medicine; Family Provider Nurse Practitioner Family; PCP Nurse Practitioner Family
DX: R10.9 Unspecified abdominal pain (principal); G89.29 Other chronic pain
CPT/HCPCS: 74022; 80053; 83690; 85025; 96374; 96375; 99283; A4216; J2405

== ENCOUNTER → 2019-03-25 | Outpatient (CLI) | payer MEDICAID, SELFPAY ==
[2019-03-26 16:07] LABS: Endomysial Antibody IgA Negative (Negative)
[2019-03-27 11:30] LABS: Immunoglobulin A 94 mg/dL (87-352); t-Transglutaminase IgA <2 U/mL (0-3)
== END | disposition home or self-care (01) ==
LOC: MTLAB 09:02
PROVIDERS: Family Provider Nurse Practitioner Family; PCP Nurse Practitioner Family
DX: R14.0 Abdominal distension (gaseous) (principal)
CPT/HCPCS: 36415; 82784; 83516; 86255

== ENCOUNTER 2019-05-22 18:41 | Emergency (ER) | payer MEDICAID, SELFPAY ==
[2019-05-22 18:42] VITALS: BP 139/66; PULSE 97; RESP 17; TEMP 36.8; O2SAT 95; BMI 25.9
[2019-05-22] MEDS: Morphine 4 MG/ML Syringe IV (19:17)
[2019-05-22] MEDS: Ondansetron 4 MG/2 ML Vial IV (19:17)
[2019-05-22 19:22] LABS: Absolute Lymphocyte Count 1.86 X10^3/uL (0.83-4.51); Absolute Neutrophil Count 3.3 X10^3/uL (2.0-7.7); Basophil# 0.03 X10^3/uL; Basophil% 0.5 % (0-1); Eosinophil# 0.47 X10^3/uL; Eosinophils% 7.7 % (0-5); Hematocrit 38.5 % (37-47); Hemoglobin 12.8 g/dL (12.0-15.0); Lymphocyte # 1.86 X10^3/ul (4.0); Lymphocyte % 30.4 % (19-41); Mean Corp Hgb Conc 33.2 g/dL (32-36); Mean Corpuscular Hgb 29.4 pg (27.0-32.0); Mean Corpuscular Volume 88.3 fL (81-99); Mean Platelet Vol. 9.4 fl (6.2-12.0); Monocyte# 0.48 X10^3/uL; Monocyte% 7.9 % (0-10); NRBC Flagged by Analyzer 0 % (0-5); Neutrophil # 3.25 X10^3/uL (2.7-7.7); Neutrophil % 53.2 % (47-70); Platelet Count 207 K/mm3 (150-450); RBC Distribution Width CV 12.3 % (11.6-14.6); RBC Distribution Width SD 40.5 fl (35.1-43.9); Red Blood Count 4.36 M/mm3 (4.2-5.4); White Blood Count 6.1 K/mm3 (4.4-11.0)
[2019-05-22 19:32] LABS: ALB/GLOB Ratio 1.1 RATIO (0.9-2.4); AST(SGOT) 15 U/L (15-37); Alanine Aminotransfer ALT/SGPT 22 U/L (13-56); Albumin, Serum 3.4 g/dL (3.2-5.0); Alkaline Phosphatase 39 U/L (45-117); Anion Gap 5 (5-15); BUN 13 mg/dL (7-18); BUN/Creat Ratio 16.5 RATIO (10-20); Calcium,Total 8.4 mg/dL (8.5-10.1); Chloride 112 mmol/L (98-107); Creatinine, Serum 0.79 mg/dL (0.55-1.02); EST Glomerular Filtration Rate 92 mL/min (>60); Est Glom Filt Rate - Afr Amer 112 mL/min (>60); Estimated Creatinine Clearance 106.95 ml/min; Globulin 3.2 g/dL (2.2-4.2); Glucose 115 mg/dL (74-106); Lipase 137 U/L (73-393); Potassium 3.9 mmol/L (3.5-5.1); Protein, Total 6.6 g/dL (6.4-8.2); Sodium Level 142 mmol/L (136-145)
[2019-05-22] MEDS: 0.9% Normal Saline 1,000 ML 125 ML IV (19:35)
[2019-05-22 20:23] LABS: Bacteria 0 SEEN /hpf (None Seen); White Blood Cells 0 SEEN /hpf (0-5)
[2019-05-22 20:26] LABS: Color, Urine Yellow (Yellow); Glucose, Dipstick Normal (Normal); Ketone-Dipstick 5 mg/dl (Negative); Leukocyte Esterase-Dipstick Negative /ul (Negative); Nitrite-Dipstick Negative (Negative); Occult Blood-Urine 150 /ul (Negative); Protein-Dipstick 15 mg/dl (Negative); Urine Bilirubin Dipstick Negative (Negative); Urine Clarity Sl. Cloudy (Clear); Urine Urobilinogen 1 mg/dl (Normal)
[2019-05-22 20:31] LABS: Internal QC Validated? YES +Cl - CLEAR BKGD; Pregnancy, Serum, hCG Quali. NEGATIVE Negative
[2019-05-22 20:38] LABS: Mucous, Urine 2+ /hpf (<or=2+); Red Blood Cells-Urine 5-10 SEEN /hpf (0-5); Squamous Epithelial Cells - UA 5-10 SEEN /hpf (5-10)
[2019-05-22 20:39] LABS: Amorphous Sediment 2+ URATE
--- NOTE | 2019-05-22 20:48 | ED.VISSUMM ---
- ER Visit Summary Date of Service: 05/22/19 Chief Complaint: [Abdominal pain] History of Present Illness: The patient is a 29 F [presents to the emergency department complaint of abdominal pain that started 2 hours ago. Patient states that she has had similar pain over the course of the last 6 to 8 months. Patient states that is been ongoing for about 2 hours at this time and could not get comfortable so she came in to be seen. Patient has this type of pain every couple of weeks. She is been evaluated for this by [facility] as well as a cannon fire direction specialist. She is had recent EGD and colonoscopy which were normal. She is had pelvic ultrasound which was normal. She had her gallbladder removed when the pain first started and she continues to have the same kind of pain. She denies any fever. She has had intermittent nausea with it and at times vomiting because of the amount of pain that she has with it. Patient is currently on her menstrual period. Patient denies urinary symptoms.] Physical Examination: [HEENT-PERRLA, EOMI. Cranial nerves II through XII grossly intact. TMs clear. Mucous membranes moist. No adenopathy. Cardiovascular-regular rate and rhythm without murmur or ectopy Lungs-clear to auscultation, chest wall stable without crepitus or subcu emphysema Abdomen-normoactive bowel sounds, soft. She has tenderness palpation of the right lower quadrant with some guarding. There is no rebound, rigidity, or perineal signs. Extremities-intact ?4, normal range of motion, normal pulses, atraumatic] Test Results: [CBC with differential obtained was normal. Chemistries were normal. Liver enzymes were normal. Lipase was 137. Urinalysis showed 5-10 RBCs but no signs of infection. hCG was negative.] Emergency Department Course and Treatment: [Patient was medicated with normal saline and she was given 4 mg of morphine 4 mg of Zofran IV. Patient had good pain relief with that. At this point I do not feel any imaging is indicated. Patient states this is the same pain she is had for months. Patient had a CT scan 6 months ago that was normal.] Treatment Plan: [Patient will be given a prescription for Bentyl and a few [place] for severe pain. Patient advised to follow-up with her cannon fire direction specialist and [employer] [employer]. Patient advised to return if worsening pain, fever, vomiting, bloody stools, or conditions worsen anyway.] Disposition: [Discharged home in stable condition] Impression: [Abdominal pain-etiology uncertain] This note was generated with [employer] dictation software. It may contain incorrect words, spelling, and punctuation that were not noted in review of the chart prior to signing ED Disposition - Plan for ED Patient: Referrals: Alejo Sands, [employer]ON[employer] TRANSPORT TECHNICIAN-C [Primary Care Provider] -
--- NOTE | 2019-05-22 20:52 | ED.DEP ---
ED Disposition - Plan for ED Patient: Instructions: ABDOMINAL PAIN, Unknown Cause, (Female) Prescriptions: Dicyclomine HCl [Bentyl] 20 mg PO TIDAC #20 cap Prescription Printed Hydrocodone Bitart/Apap 5-325 [[place] 5MG-325MG] 1 tab PO Q4H PRN PRN 2 Days #10 tab PRN Reason: Pain Prescription Printed Referrals: Alejo Sands, UNIT SECRETARY-C [Primary Care Provider] - 3-5 Days
[2019-05-22 21:02] VITALS: BP 116/69; PULSE 69; RESP 15; O2SAT 99
--- NOTE | 2019-05-22 21:03 | ED.RN ---
PT GIVEN WRITTEN AND VERBAL DISCHARGE INSTRUCTIONS AND HOME GOING PRESCRIPTIONS. PT EDUCATED ON FOLLOW UP AND NOT TO DRIVE IF TAKING NARCOTIC MEDICATIONS. PT IV D/C AND COVERED WITH 2X2 GAUZE AND PAPER TAPE. PT AMBULATORY OUT OF DEPT WITH SIGNIFICANT OTHER.
== END 2019-05-22 21:06 | disposition home or self-care (01) ==
LOC: ED 19:12
PROVIDERS: Emergency Provider Emergency Medicine; Family Provider Nurse Practitioner Family; PCP Nurse Practitioner Family
DX: R10.31 Right lower quadrant pain (principal)
CPT/HCPCS: 80053; 81001; 83690; 84703; 85025; 96361; 96374; 96375; 99283; J7030; A4216; J2405

== ENCOUNTER → 2019-06-01 | Outpatient (CLI) | payer MEDICAID, SELFPAY ==
[2019-05-22 18:42] VITALS: BMI 25.9
--- NOTE | 2019-06-01 09:30 | RAD_ITS ---
PROCEDURE: SMALL BOWEL SERIES DATE OF EXAMINATION: June 01, 2019. INDICATION: Female, 29 years old. Chronic right lower quadrant pain. PHYSICIAN: Walter Sweet M.D. FLUOROSCOPY TIME (if supplied): (0:06) minutes/seconds TECHNIQUE: Radiographic and fluoroscopic images were taken of the small intestine following the ingestion of barium. COMPARISON: None. FINDINGS: A preliminary supine KUB was obtained. There is an unremarkable bowel gas pattern. Fecal material is present throughout the colon. The osseous structures are normal. The patient orally ingested approximately 12 ounces of thin barium Normal visualized fundus, body, and antrum of the stomach. Normal duodenal bulb, C-loop, and proximal jejunum. Normal visualized mucosal folds of the jejunum and ileum. There are no demonstrated dilatations, strictures, or masses of the small intestine. There is no mass displacement of the loops of small intestine. There is a normal motor pattern with barium reaching the colon within approximately 60 minutes. Spot films under fluoroscopic observation demonstrated a normal terminal ileum and ileocecal valve. RAD/Small Bowel Series Only IMPRESSION: Normal small bowel series. Electronically Signed: Walter Sweet, at 11:14 EDT , Service support ,
== END | disposition home or self-care (01) ==
LOC: RAD 09:14
PROVIDERS: Family Provider Nurse Practitioner Family; PCP Nurse Practitioner Family
DX: R10.31 Right lower quadrant pain (principal)
CPT/HCPCS: 74250

== ENCOUNTER → 2019-07-13 | Outpatient (CLI) | payer MEDICAID, SELFPAY ==
[2019-07-13 09:13] VITALS: BMI 25.9
[2019-07-13 10:43] LABS: Thyroid Stim Hormone (TSH) 0.99 uIU/mL (0.358-3.74)
== END | disposition home or self-care (01) ==
LOC: PAVLAB 09:36
PROVIDERS: Family Provider Nurse Practitioner Family; PCP Nurse Practitioner Family; Referring Provider Obstetrics & Gynecology; Visit Provider Obstetrics & Gynecology
DX: R10.2 Pelvic and perineal pain (principal); G89.29 Other chronic pain
CPT/HCPCS: 36415; 84439; 84443; 87086; 87088

== ENCOUNTER → 2019-07-29 12:03 | Outpatient (CLI) | payer MEDICAID, SELFPAY ==
[2019-07-13 09:13] VITALS: BMI 25.9
[2019-07-29 13:21] LABS: hCG Titer Quant., Serum 363 mIU/mL (1-3)
== END ==
PROVIDERS: Family Provider Nurse Practitioner Family; PCP Nurse Practitioner Family; Referring Provider Obstetrics & Gynecology; Visit Provider Obstetrics & Gynecology
DX: Z34.90 Encounter for supervision of normal pregnancy, unspecified, unspecified trimester (principal)
CPT/HCPCS: 36415; 84702

== ENCOUNTER → 2019-08-04 09:50 | Outpatient (CLI) | payer MEDICAID, SELFPAY ==
[2019-06-08 15:41] VITALS: BMI 25.9
[2019-07-27 17:03] LABS: hCG Titer Quant., Serum 175 mIU/mL (1-3)
== END ==
PROVIDERS: Family Provider Nurse Practitioner Family; PCP Nurse Practitioner Family; Referring Provider Obstetrics & Gynecology; Visit Provider Obstetrics & Gynecology
DX: Z34.90 Encounter for supervision of normal pregnancy, unspecified, unspecified trimester (principal)
CPT/HCPCS: 36415; 84702

== ENCOUNTER → 2019-08-10 12:10 | Outpatient (CLI) | payer MEDICAID, SELFPAY ==
[2019-07-13 09:13] VITALS: BMI 25.9
[2019-08-10 13:42] LABS: hCG Titer Quant., Serum 3322 mIU/mL (1-3)
--- NOTE | 2019-08-10 15:50 | US_ITS ---
STUDY: FIRST TRIMESTER OBSTETRICAL ULTRASOUND REASON FOR EXAM: Female, 29 years old . viability. Vaginal bleeding. LMP: Unknown TECHNIQUE: Transabdominal and Transvaginal TECHNICAL QUALITY: Adequate. PRIOR ULTRASOUND: None. FINDINGS: There is no demonstrated intrauterine gestational sac. There is no demonstrated yolk sac. The placenta is non-visualized. There is no demonstrated embryo ( pole). The uterus measures 10.6 cm x 6.6 cm x 5.6 cm. The endometrium is thickened measuring 3 cm. Images of homogeneous echotexture. There is no demonstrated uterine fibroid. The cervix is closed. The right ovary was not visualized. The left ovary measures 3.4 cm x 2.1 cm x 2.1 cm. There is a 1.2 cm x 1.1 cm x 1 cm thick rim cystic density within the left adnexa. An ectopic cannot be ruled out. Correlation with the serial beta hCG is recommended. There is no fluid in the cul de sac. US/Init OB < 14Wks US IMPRESSION: Heterogeneous thickening of the endometrium. 1.2 cm x 1.1 cm x 1 cm thick rim cystic density within the left adnexa as described. Ectopic should be ruled out. Serial beta hCG correlation is recommended. Electronically Signed: Walter Sweet, at 9:15 EST , Service support ,
== END ==
PROVIDERS: Family Provider Nurse Practitioner Family; PCP Nurse Practitioner Family; Referring Provider Obstetrics & Gynecology; Visit Provider Obstetrics & Gynecology
DX: O20.0 Threatened abortion (principal)
CPT/HCPCS: 36415; 76801; 84702

== ENCOUNTER → 2019-08-12 12:34 | Outpatient (CLI) | payer MEDICAID, SELFPAY ==
[2019-07-13 09:13] VITALS: BMI 25.9
[2019-08-12 13:17] LABS: hCG Titer Quant., Serum 784 mIU/mL (1-3)
== END ==
PROVIDERS: Nurse Practitioner Women's Health; Family Provider Nurse Practitioner Family; PCP Nurse Practitioner Family; Referring Provider Obstetrics & Gynecology; Visit Provider Obstetrics & Gynecology
DX: N91.2 Amenorrhea, unspecified (principal)
CPT/HCPCS: 36415; 84702

== ENCOUNTER → 2019-08-14 09:12 | Outpatient (CLI) | payer MEDICAID, SELFPAY ==
[2019-07-13 09:13] VITALS: BMI 25.9
[2019-08-14 09:44] LABS: hCG Titer Quant., Serum 273 mIU/mL (1-3)
== END ==
PROVIDERS: Family Provider Nurse Practitioner Family; PCP Nurse Practitioner Family; Referring Provider Obstetrics & Gynecology; Visit Provider Obstetrics & Gynecology
DX: O20.0 Threatened abortion (principal)
CPT/HCPCS: 36415; 84702

== ENCOUNTER 2019-09-15 07:13 | Day surgery (SDC) | payer MEDICAID, SELFPAY ==
[2019-08-14 09:29] VITALS: BMI 25.9
[2019-08-27 13:06] VITALS: BMI 25.9
--- NOTE | 2019-09-13 01:58 | PCM.HPOB.BLA ---
- Problem List (1) Chronic pelvic pain in female Status: Chronic Comment: suspect pelvic congestion. plan hysteroscopy, D&C, exp laparoscopy, cystoscopy discussed halfway treatment options of PFPT, hysterectomy, hormones History and Physical Date of Admission: 09/15/19 Intake Vital Signs 08/27/19 BMI 25.9 08/27/19 Height 5 ft 8 in 08/27/19 Weight: 176 lb 08/27/19 BMI 26.7 08/27/19 BP 120/72 Intake Visit Reasons: Pre-operative exam for gynecologic surgery Dye Jig Operator Required: No Is patient in pain?: No Allergies Penicillins Allergy (Verified 08/27/19 13:05) Hives Medications norethindrone acetate 1 mg-ethinyl estradiol 20 mcg tablet 1 tab PO DAILY #21 tab 08/14/19 [Rx Confirmed 08/27/19] Post menopausal: No Patient : No : No PFSH Medical History Missed ab (Acute ~08/2019) No pertinent past medical history (Acute) Gallstone pancreatitis (Resolved) Surgical History Hx of cholecystectomy (Acute) S/P tonsillectomy (Acute) Family History Mother Asthma Social History (Updated 08/27/19 @ 13:32 by Vivi Toribio MD) Smoking Status: Never smoker alcohol intake: current details: occasionally substance use type: does not use caffeine: Yes what type of physical activity do you participate in: aerobics frequency: 3-4 times per week seatbelt use: always do you feel safe at home: Yes additional social history: Single-Works [employer] HPI Preoperative exam for gynecologic surgery: Details: FERNY GRANT is a 29 year old who presents for PREOP EXAM. SHE HAS CHRONIC abdominal pain, no bleeding. she has been evaluated in the past and had an ultrasound, recent miscarriage. she has persistent pelvic pain despite OCP. Pregancy History 3 Elective abortions Hx Para 2 Spontaneous abortions 1 Hx # Term Pregnancies Ectopic pregnancies Hx # Pregnancies Multiple births # of living children 2 Past Pregnancies Del. Date Name GA/Weeks Outcome Route Bth Weight Infant Gen Labor Lgth Anesthesia Del Locatn Provider FOB 07/20/08 Oksana 40 live - full term 7lbs 11oz Female none [facility] Kulwinder 08/27/10 Randy 40 live - full term 7lbs 11oz Female none [facility] Dr. Nimesh Miramontes Delivery Date: 03/28/08 On 06/08/19 @ 14:33 Ele Baker No issues during or delivery. Delivery Date: 08/27/10 On 06/08/19 @ 14:34 Olivia,Ele No issues during or delivery. ROS Const Constitutional: Denies fatigue, fever(s), headache(s), increased appetite, poor appetite, weight gain or weight loss ENT ENT: Reports system reviewed and no additional complaints, except as docu Cardio Card: Denies chest pain Resp Resp: Denies cough or dyspnea : Reports as per HPI; denies difficulty urinating, painful urination, nipple discharge, urinary frequency, urinary incontinence, urinary hesitancy, urinary urgency, vaginal discharge, vaginal dryness, vaginal odor or vaginal itching Musc Musc: Denies joint pain, back pain or muscle weakness Skin Skin/Breast: Denies hair loss, change in hair, dry skin, breast lump, breast pain, breast skin changes or nipple discharge Neuro Neuro: Reports system reviewed and no additional complaints, except as docu Psych Psych: Reports system reviewed and no additional complaints, except as docu Endo Endo: Denies cold intolerance, excessive sweating, heat intolerance or increased thirst Nicholas/Lymph Hematologic/Lymphatic: Denies easy bleeding, Denies easy bruising, Denies enlarged lymph nodes Exam Const General: cooperative, healthy appearing, comfortable, no acute distress, well developed Nutritional Appearance: average body habitus Orientation: alert [facility] Head: normal to inspection, normocephalic Ears: hearing grossly normal bilaterally, external ears normal Nose: external nose normal, nares normal Face and sinus: normal facial exam Neck Neck: normal visual inspection, no lymphadenopathy Thyroid: thyroid normal Chest Chest palpation & inspection: normal inspection of the chest Resp Effort & Inspection: normal respiratory effort Cardio Rate: regular rate Rhythm: regular rhythm GI Inspection: normal to inspection, non-distended Palpation: soft, no hepatosplenomegaly General: bladder normal to palpation External Female Exam: normal external appearance, normal appearance of the urethra Urethra: normal appearance of the urethra Speculum Exam - Vagina: normal appearance of the vagina, vaginal bleeding Speculum Exam - Cervix: normal appearance of the cervix, nontender Bimanual Exam- Vagina & Uterus: bladder normal to palpation, No cervical tenderness Bimanual Exam- Adnexa, other: normal adnexae, adnexae mobile, no adnexal masses, pelvic support normal Pelvic Support: normal OB/External & Speculum: vaginal bleeding Speculum Exam: vaginal bleeding Musc Other: gross motor intact no deficits, full bilateral strength Skin General: no rashes or lesions noted Neuro General: alert, awake, moves all extremities, no focal motor deficits Motor: muscle tone normal throughout Extrem General: normal to inspection, no pedal edema Psych Appearance: grossly normal Mental Status: mental status grossly normal Affect: normal affect Speech and Movement: speech and movement normal Assessment & Plan 1. Preoperative exam for gynecologic surgery Z01.818 Plan After discussing the patient's diagnosis and treatment plan options, patient wishes to proceed with surgical management. I have discussed with the patient the risks, benefits, and alternatives of the procedure which include but are not limited to risks of anesthesia, bleeding, infection, possible damage to bowel, bladder, or surrounding vasculature which could lead to additional surgery to evaluate any complications. Patient agrees to procedure and wishes to proceed. counseled regarding possibility of persistent pain and negative findings. Coding Level of Care Code No Charge Diagnoses Preoperative exam for gynecologic surgery Z01.818
[2019-09-15 07:38] LABS: Internal QC Validated? YES +Cl - CLEAR BKGD; Pregnancy, Urine Negative Negative
[2019-09-15 07:40] VITALS: BP 97/56; PULSE 56; RESP 18; TEMP 36.9; O2SAT 100; BMI 26.9
[2019-09-15 07:40] LABS: Hematocrit 39.9 % (37-47); Hemoglobin 13.3 g/dL (12.0-15.0); Mean Corp Hgb Conc 33.3 g/dL (32-36); Mean Corpuscular Hgb 29.1 pg (27.0-32.0); Mean Corpuscular Volume 87.3 fL (81-99); Platelet Count 235 K/mm3 (150-450); RBC Distribution Width CV 12.3 % (11.6-14.6); RBC Distribution Width SD 39.4 fl (35.1-43.9); Red Blood Count 4.57 M/mm3 (4.2-5.4)
[2019-09-15] MEDS: Lubricating Jelly 60 GM Tube 30 GM TOPICAL (07:43)
[2019-09-15] MEDS: Lactated Ringers 1,000 ML 100 ML IV (08:00)
--- NOTE | 2019-09-15 08:45 | EMB_PTH ---
PATIENT: FERNY GRANT LOC: [facility] [place] U#:[id number] AGE/SX: 29/F ROOM: RE09/15/[address]: Dr. Vivi Toribio MD : 1990 BED: DIS: 09/15/2019 SPEC #: [id number] RECD: 09/15/19 10:06 STATUS: LILLY KAMALA #: [id number] COCO: 09/15/19 08:[address]: Vivi Toribio DEPT: SURGICAL PATHOLOGY RECD BY: Alexys Porter ENTERED: 09/15/19 13:13 SP TYPE: ENDOM BX/C SILVESTRE DR: Alejo Sands, ANI-Mitzy Tissues: Endometrium, NOS Procedures: Surgery Specimen Level IV HEADER OPERATION: Hysteroscopy, D & C PRE-OP DIAGNOSIS: Chronic pelvic pain TISSUE SUBMITTED: Endometrial curettings MICROSCOPIC DIAGNOSIS Endometrial curettings: Glandular and stromal breakdown. Focal decidual change with breakdown. Strips of benign superficial endocervix. AM:sherita 09/16/19 COMMENT Case has been reviewed in consultation with Dr. Marinelli who concurs with the above diagnosis. IDC:INDU MICROSCOPIC DESCRIPTION Slides are reviewed. GROSS DESCRIPTION Received in fixative is one container labeled with the patient's name and designated endometrial curettings. The specimen consists of multiple fragments of hemorrhagic soft tissue mixed with blood clot that in aggregate measure 5 x 3 x 0.3 cm. The specimen predominantly consists of blood clot. The entire specimen is submitted in two cassettes. / INDU:sherita 09/15/19 TC:5 CPT: 13539
[2019-09-15] MEDS: Bupivacaine 0.25% 30 ML Vial (09:00)
[2019-09-15 09:48] VITALS: BP 110/67; BP 97/56; PULSE 81; RESP 18; TEMP 36.7; O2SAT 98
--- NOTE | 2019-09-15 09:52 | OP.PCM_ITS ---
Problem List (1) Chronic pelvic pain in female Status: Chronic Comment: suspect pelvic congestion. plan hysteroscopy, D&C, exp laparoscopy, cystoscopy discussed custodial treatment options of PFPT, hysterectomy, hormones Report of Operation Date of Procedure: 09/15/19 Pre-Operative Diagnosis: pelvic pain Post-Operative Diagnosis: same plus pelvic congestion Surgery/Procedure Performed:: Diagnostic laparoscopy D&C hysteroscopy cystoscopy Description of Surgical Findings:: Normal abdominal cavity normal uterus tubes and ovaries bilaterally. Normal uterine lining with a mildly polypoid appearance. Normal bladder lining with bilateral ureteral patency. Increase pelvic vasculature seen in the lower pelvis to and from the uterus suspect congestion full time staff interpreter: Charline Ervin Type of Anesthesia:: General Special Medications: none Specimen's removed: emc Drains: none Estimated Blood Loss (mL): 50 Fluids Replaced: crystalloid Description of Procedure: Patient was taken the operating room and placed under general anesthesia. Patient was prepped and draped in normal sterile fashion in dorsolithotomy position. Uterine manipulator was placed inside the uterus without complication and then the umbilicus was injected with 1% lidocaine and 5 mm incision was made with a scalpel and varies needle entered into the abdomen confirmed to be intra-abdominal with an opening pressure of 2 to 3 mmHg pressure. Abdomen was insufflated to CO2 gas and complete evaluation of the entire abdominal cavity was performed and the uterus tubes and ovaries bowels and upper abdomen and other structures were noted be within normal limits with no gross abnormality seen. Increased pelvic vasculature with some possible congestion was noted in the lower pelvis. Abdomen was desufflated of gas and the port site was closed after all instruments removed from the abdomen. Cervix was dilated to allow passage of a 5 mm hysteroscope which the lining was noted to be within normal limits although it did have a slight polypoid appearance and a complete curettage was performed and pathology sent to be analyzed. Cystoscopy was then performed and the bladder was filled with saline and no abnormalities were seen to the bladder lining and bilateral renal patency was confirmed. After being hydrodistended with approximately 500 cc of fluid bladder was drained and then debris filled and no abnormalities were seen or petechiae seen. All instruments removed from the patient and excellent hemostasis was noted. Patient was awoken taken recovery in stable condition. Grafts/Implants Used: none - Complications none Multi Select Codes - Urinary/Genital Urinary/Genital CPT Codes: 91148 Cystoscopy, 15926 Hysteroscopy, diagnostic, Other Procedure See Report - diagnostic laparosocpy
--- NOTE | 2019-09-15 09:58 | PCM.DC.TUB ---
Discharge Diet: No Restrictions - Increase fluid intake for the next 48 hours. Discharge Activity: Return to Normal Activity, May Drive - when you are no longer taking narcotic pain medications., May Shower, May Take a Tub Bath - in 7 days Additional Activity Instructions:: Ambulate often the next week after surgery. Nothing in the vagina for 5 days. Call your doctor if your incision/area has: Continuous Slow Oozing, Sudden Increased Bleeding, Increased Pain/ Swelling, Increased Redness, Foul Smelling Discharge Call your doctor if you observe: Fever of 101 or Higher Allergies/Adverse Reactions: Allergies Penicillins Allergy (Verified 09/15/19 07:33) Hives Medications to take at Discharge norethindrone acetate 1 mg-ethinyl estradiol 20 mcg tablet 1 tab PO DAILY #21 tab 08/14/19 Naproxen [Naprosyn] 250 - 500 mg PO Q8H PRN PRN #30 tab 09/15/19 Oxycodone HCl/Acetaminophen [Percocet 5-325] 1 - 2 tab PO Q6H PRN PRN 7 Days #15 tab 09/15/19 The following prescriptions were given: Naproxen [Naprosyn] 250 - 500 mg PO Q8H PRN PRN #30 tab PRN Reason: MILD PAIN Transmission Status: Sent to [facility] Oxycodone HCl/Acetaminophen [Percocet 5-325] 1 - 2 tab PO Q6H PRN PRN 7 Days #15 tab PRN Reason: Pain Transmission Status: Sent to [facility] Primary Care Physician: Alejo Sands, ANI-C [Primary Care Provider] - Test Results: Test results from this visit will be discussed in further detail at your follow-up appointment, if applicable. Please Follow Up With: Vivi Toribio MD - [phone]
[2019-09-15 10:00] VITALS: BP 105/63; BP 97/56; PULSE 64; RESP 16; O2SAT 96
[2019-09-15 10:15] VITALS: BP 106/64; BP 97/56; PULSE 69; RESP 16; TEMP 37.6; O2SAT 97
[2019-09-15 11:00] VITALS: BP 112/55; BP 97/56; PULSE 58; RESP 18; TEMP 36.7; O2SAT 99
== END 2019-09-15 11:05 | disposition home or self-care (01) ==
LOC: SDC 07:14 → AC 07:16
PROVIDERS: Family Provider Nurse Practitioner Family; PCP Nurse Practitioner Family; Referring Provider Obstetrics & Gynecology; Visit Provider Obstetrics & Gynecology
PROC: 0UDB8ZZ Extraction of Endometrium, Via Natural or Artificial Opening Endoscopic (ICD-10-PCS; CPT 58558; principal; 2019-09-15 08:30)
PROC: (CPT 49320; 2019-09-15 08:30)
DX: R10.2 Pelvic and perineal pain (principal); G89.29 Other chronic pain
CPT/HCPCS: 49320; 52000; 58558; 36415; 81025; 85027; 86850; 86900; 86901; 88305; J7120; J2405

== ENCOUNTER 2019-09-25 16:09 | Emergency (ER) | payer MEDICAID, SELFPAY ==
[2019-09-25 16:09] VITALS: BP 139/83; PULSE 76; RESP 16; TEMP 37.1; O2SAT 97
[2019-09-25 16:10] VITALS: BP 139/83; PULSE 80; RESP 18; TEMP 37.1; O2SAT 98; BMI 26.6
[2019-09-25] MEDS: Morphine 4 MG/ML Syringe IV (16:53)
[2019-09-25] MEDS: 0.9% Normal Saline 1,000 ML 125 ML IV (16:54)
[2019-09-25] MEDS: Ondansetron 4 MG/2 ML Vial IV (16:54)
[2019-09-25 17:02] LABS: Basophil# 0.04 X10^3/uL; Basophil% 0.4 % (0-1); Eosinophil# 0.13 X10^3/uL; Eosinophils% 1.4 % (0-5); Hematocrit 40.7 % (37-47); Hemoglobin 13.9 g/dL (12.0-15.0); Lymphocyte % 16.1 % (19-41); Mean Corp Hgb Conc 34.2 g/dL (32-36); Mean Corpuscular Hgb 29.6 pg (27.0-32.0); Mean Corpuscular Volume 86.8 fL (81-99); Mean Platelet Vol. 9.2 fl (6.2-12.0); Monocyte# 0.68 X10^3/uL; Monocyte% 7.3 % (0-10); NRBC Flagged by Analyzer 0 % (0-5); Neutrophil # 6.95 X10^3/uL (2.7-7.7); Neutrophil % 74.5 % (47-70); Platelet Count 250 K/mm3 (150-450); RBC Distribution Width CV 12.2 % (11.6-14.6); RBC Distribution Width SD 38.8 fl (35.1-43.9); Red Blood Count 4.69 M/mm3 (4.2-5.4); White Blood Count 9.3 K/mm3 (4.4-11.0)
[2019-09-25 17:11] LABS: Internal QC Validated? YES +Cl - CLEAR BKGD; Pregnancy, Serum, hCG Quali. NEGATIVE Negative
[2019-09-25 17:17] LABS: ALB/GLOB Ratio 1.1 RATIO (0.9-2.4); AST(SGOT) 14 U/L (15-37); Alanine Aminotransfer ALT/SGPT 23 U/L (13-56); Albumin, Serum 3.8 g/dL (3.2-5.0); Alkaline Phosphatase 45 U/L (45-117); Anion Gap 7 (5-15); BUN 12 mg/dL (7-18); BUN/Creat Ratio 15.1 RATIO (10-20); Calcium,Total 8.6 mg/dL (8.5-10.1); Chloride 106 mmol/L (98-107); EST Glomerular Filtration Rate 91 mL/min (>60); Est Glom Filt Rate - Afr Amer 110 mL/min (>60); Estimated Creatinine Clearance 105.61 ml/min; Globulin 3.4 g/dL (2.2-4.2); Glucose 102 mg/dL (74-106); Lipase 149 U/L (73-393); Potassium 3.9 mmol/L (3.5-5.1); Protein, Total 7.2 g/dL (6.4-8.2); Sodium Level 140 mmol/L (136-145)
[2019-09-25 17:19] LABS: Mucous, Urine 0 SEEN /hpf (<or=2+); White Blood Cells 0 SEEN /hpf (0-5)
[2019-09-25 17:28] LABS: Color, Urine Yellow (Yellow); Glucose, Dipstick Normal (Normal); Ketone-Dipstick Negative (Negative); Leukocyte Esterase-Dipstick Negative /ul (Negative); Nitrite-Dipstick Negative (Negative); Occult Blood-Urine 25 /ul (Negative); Protein-Dipstick Negative (Negative); Specific Gravity, Urine 1.025 (1.002-1.030); Urine Bilirubin Dipstick Negative (Negative); Urine Clarity Clear (Clear); Urine Urobilinogen Normal (Normal)
--- NOTE | 2019-09-25 17:31 | CT_ITS ---
STUDY: CT ABDOMEN AND PELVIS WITH CONTRAST REASON FOR EXAM: Female, 29 years old. Right lower quadrant PAIN TODAY. H/O MARLENE. RADIATION DOSAGE (If Supplied By Facility): CTDIvol = ( 14.58 ) mGy, DLP = ( 866.34 ) mGycm TECHNIQUE: Transaxial images were obtained from the dome of the diaphragm to the symphysis pubis with oral contrast. Oral and amp; IV Gastrografin and amp; 100mL Isovue-300 was administered. Sagittal and coronal images were reconstructed. Individualized dose optimization techniques were used for this CT. COMPARISON: 11/11/2018. FINDINGS: The visualized lung bases are unremarkable. The visualized portions of the heart are within normal limits. Normal liver. There is non-visualization of the gallbladder, which may be secondary to either contraction or a prior cholecystectomy. Normal spleen. Normal pancreas. Normal bilateral adrenal glands. Normal right kidney. Normal left kidney. Distention of the stomach. Normal small intestine. Normal colon. The appendix is visualized and appears normal. Normal abdominal aorta. Normal inferior vena cava. Normal retroperitoneum. Normal urinary bladder. Normal visualized uterus. Normal abdominal wall. Normal osseous structures. CT/Abdomen/Pelvis WITH Contrast IMPRESSION: No definite acute abnormality, but there is marked distention of the stomach which was also present previously. Question whether there could be gastroparesis. Electronically Signed: Vinod Falcon MD at 19:18 EST , Service support ,
[2019-09-25 17:48] LABS: Amorphous Sediment 1+; Bacteria 1+ /hpf (None Seen); Red Blood Cells-Urine 0-5 SEEN /hpf (0-5); Squamous Epithelial Cells - UA 0-5 SEEN /hpf (5-10)
[2019-09-25 18:28] VITALS: BP 120/77; PULSE 59; RESP 16; O2SAT 99
--- NOTE | 2019-09-25 19:41 | ED.DCSUM_ITS ---
- ER Visit Summary Date of Service: 09/25/19 Chief Complaint: [Abdominal pain] History of Present Illness: The patient is a 29 F [presents to the emergency department with complaint of abdominal pain that started 3 days ago. Patient rates her pain an 8 out of 10. Describes it is lower abdomen. She has had nausea and vomiting x2 with it and she is had about 6 episodes of watery stool. Patient states that she has been dealing with some pain issues in her lower abdomen for almost a year now. Patient was seen about 10 months ago and had a CT scan of her abdomen pelvis. 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 Patient has seen GI in the past and has had colonoscopy within the last year that was unremarkable. She not sure if she is ever had an EGD. Patient had prior cholecystectomy. Patient has not missed any menstrual periods. She is not had any antibiotics recently.] Physical Examination: [HEENT-PERRLA, EOMI. Cranial nerves II through XII adeel ssly intact. TMs clear. Mucous membranes moist. No adenopathy. Cardiovascular-regular rate and rhythm without murmur or ectopy Lungs-clear to auscultation, chest wall stable without crepitus or subcu emphysema Abdomen-normoactive bowel sounds, soft. Patient has tenderness to the lower abdomen diffusely. There is no rebound, rigidity, or perineal signs. Extremities-intact ?4, normal range of motion, normal pulses, atraumatic] Test Results: [CBC with it was normal. Chemistries normal. LFTs normal. Lipase was negative. hCG was negative. Urinalysis was normal. T scan of the abdomen pelvis with IV and p.o. contrast showed a distended stomach which was present on prior CT study otherwise nothing acute. The appendix was visualized and was normal. 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 She denies anything for pain for home.] Disposition: Discharged home in stable condition] Impression: [Abdominal pain-etiology uncertain] This note was generated with [employer] dictation software. It may contain incorrect words, spelling, and punctuation that were not noted in review of the chart prior to signing ED Disposition - Plan for ED Patient: Referrals: Alejo Sands, SPORTS SPECIALIST-C [Primary Care Provider] -
--- NOTE | 2019-09-25 19:44 | DCINST.ED_ITS ---
ED Disposition - Plan for ED Patient: Instructions: ABDOMINAL PAIN, Unknown Cause, (Female) Referrals: Alejo Sands, JAVA MOBILE DEVELOPER-C [Primary Care Provider] - 3-5 Days Additional Instructions: see your GI specialist
--- NOTE | 2019-09-25 19:44 | ED.DEP ---
ED Disposition - Plan for ED Patient: Instructions: ABDOMINAL PAIN, Unknown Cause, (Female) Referrals: Alejo Sands, LEAD FABRICATOR-C [Primary Care Provider] - 3-5 Days Additional Instructions: see your GI specialist
[2019-09-25 19:53] VITALS: BP 123/79; PULSE 64; RESP 16; O2SAT 98
--- NOTE | 2019-09-25 19:54 | ED.RN ---
PT EDUCATED ON WRITTEN AND VERBAL DISCHARGE INSTRUCTIONS. EDUCATED NOT TO DRIVE FOR SIX HOURS AFTER HAVING MORPHINE. PT IV D/C AND COVERED WITH 2X2 GAUZE AND PAPER TAPE.
== END 2019-09-25 19:57 | disposition home or self-care (01) ==
LOC: ED 16:53
PROVIDERS: Emergency Provider Emergency Medicine; PCP Nurse Practitioner Family
DX: R10.30 Lower abdominal pain, unspecified (principal)
CPT/HCPCS: 74177; 80053; 81001; 83690; 84703; 85025; 96361; 96374; 96375; 99283; J7030; Q9967; A4216; J2405

== ENCOUNTER → 2020-01-14 | Outpatient (CLI) | payer MEDICAID, SELFPAY ==
[2020-01-11 09:04] VITALS: BMI 24.5
--- NOTE | 2020-01-14 09:20 | US_ITS ---
STUDY: ULTRASOUND BREAST - LEFT REASON FOR EXAM: Female, 29 years old. Pain in the left breast. TECHNIQUE: Axial and longitudinal images of the LEFT breast were performed with a high resolution ultrasound transducer. # OF IMAGES: 35 COMPARISON: Comparison is made with prior mammogram done earlier today. FINDINGS: LEFT Breast: The upper medial aspect of the left breast was examined by ultrasound. No sonographic abnormality is seen. US/Breast Limited Unilateral IMPRESSION: Unremarkable sonographic assessment. ASSESSMENT CATEGORY: BIRADS Category 1: Negative. A letter regarding these results will be sent to the patient by the facility within 30 days. Electronically Signed: Walter Sweet, at 11:19 EDT , Service support ,
--- NOTE | 2020-01-14 09:20 | BI_ITS ---
MAMMOGRAPHY - BILATERAL DIAGNOSTIC REASON FOR EXAM: Female, 29 years old. Left breast lump. PERTINENT HISTORY: Grandmother with breast cancer. On with breast cancer. TECHNIQUE: Digital bilateral breast tye (3D mammographic acquisition) in the CC and MLO projections. 2-D mediolateral oblique (MLO) and craniocaudad (CC) views of both breasts were obtained. CAD: Full Field Digital Mammography with Computer Added Detection was performed. COMPARISON: None. Baseline examination. FINDINGS: Breast Composition: The breasts are extremely dense, which lowers the sensitivity of mammography. There are no dominant masses or suspicious calcifications. No other significant abnormalities are identified. BI/DIAG MAMM W/CAD, BILAT IMPRESSION: Negative diagnostic mammogram. With the history of a palpable abnormality in the left breast, correlation with ultrasound is recommended. ASSESSMENT CATEGORY: BIRADS Category 0: Incomplete. Need additional imaging evaluation. A letter regarding these results will be sent to the patient by the facility within 30 days. Approximately 10% of breast cancers are not detected by mammography. A normal mammogram should not delay biopsy of a clinically suspicious abnormality. Electronically Signed: Walter Sweet, at 11:13 EDT , Service support ,
== END | disposition home or self-care (01) ==
LOC: OPBI 09:20
PROVIDERS: PCP Nurse Practitioner Family; Referring Provider Nurse Practitioner Women's Health; Visit Provider Nurse Practitioner Women's Health
DX: N64.4 Mastodynia (principal); N60.19 Diffuse cystic mastopathy of unspecified breast
CPT/HCPCS: 76642; 77062; 77066; G0279

== ENCOUNTER → 2020-04-13 10:14 | Outpatient (CLI) | payer MEDICAID, SELFPAY ==
[2020-01-11 09:04] VITALS: BMI 24.5
== END ==
PROVIDERS: PCP Nurse Practitioner Family; Referring Provider Internal Medicine Geriatric Medicine; Visit Provider Internal Medicine Geriatric Medicine
DX: Z11.59 Encounter for screening for other viral diseases (principal)
CPT/HCPCS: 87635; 94799; U0003

== ENCOUNTER → 2020-06-10 | Outpatient (CLI) | payer MEDICAID, SELFPAY ==
[2020-01-11 09:04] VITALS: BMI 24.5
== END | disposition home or self-care (01) ==
LOC: MTDU 17:17
PROVIDERS: PCP Nurse Practitioner Family; Referring Provider Nurse Practitioner Primary Care; Visit Provider Nurse Practitioner Primary Care
DX: Z20.828 Contact with and (suspected) exposure to other viral communicable diseases (principal)
CPT/HCPCS: 87635; C9803; U0003

== ENCOUNTER → 2020-10-14 14:41 | Outpatient (CLI) | payer MEDICAID, SELFPAY ==
[2020-01-11 09:04] VITALS: BMI 24.5
== END ==
PROVIDERS: PCP Nurse Practitioner Family; Referring Provider Nurse Practitioner Family; Visit Provider Nurse Practitioner Family
DX: J06.9 Acute upper respiratory infection, unspecified (principal); Z20.822 Contact with and (suspected) exposure to COVID-19
CPT/HCPCS: 87635; C9803; U0005; U0003

== ENCOUNTER 2021-02-27 02:55 | Emergency (ER) | payer MEDICAID, SELFPAY ==
[2020-01-11 09:04] VITALS: BMI 24.5
[2021-02-27 02:55] VITALS: BP 132/86; PULSE 58; RESP 16; TEMP 36.9; O2SAT 97; BMI 23.5
--- NOTE | 2021-02-27 03:00 | EDS_ITS ---
HPI History of Present Illness Chief Complaint: Nausea/Vomiting/Diarrhea Onset/Context/Timing Onset: Yesterday Current Severity: Moderate Maximum Severity: Moderate Worsened by: The patient is Narrative Narrative: The patient is an otherwise healthy 30-year-old female who presents to the emergency department with nausea and vomiting. Patient states that her boyfriend son was sick with diarrhea and a low-grade fever 2 days ago. She states that about 10 PM, she began to have some abdominal cramping. Shortly thereafter, she began to have loose, watery diarrhea. She then began to have some vomiting. She describes diffuse cramping pain. She denies fever. She denies chills or sweats. She states she is otherwise been in her normal state of health. [facility] Medical History Gallstone pancreatitis Missed ab (~08/2019) No pertinent past medical history Home Medications norethindrone acetate 1 mg-ethinyl estradiol 20 mcg tablet 1 tab PO DAILY #21 tab 01/27/21 [Rx Last Taken Unknown] dicyclomine 20 mg PO TIDAC #20 capsule 02/27/21 [Rx Last Taken Unknown] ondansetron 4 mg PO Q8H PRN PRN #10 tab 02/27/21 [Rx Last Taken Unknown] Allergy/AdvReac Type Severity Reaction Status Date / Time Penicillins Allergy Hives Verified 01/11/20 09:04 Family History Mother Asthma Surgical History H/O dilation and curettage Hx of cholecystectomy S/P tonsillectomy Social History Smoking Status: Never smoker alcohol intake: current details: occasionally substance use type: does not use caffeine: Yes what type of physical activity do you participate in: aerobics frequency: 3-4 times per week seatbelt use: always do you feel safe at home: Yes additional social history: Single-Works at [employer] ROS ROS ED Constitutional Constitutional ED: Denies chills or fever(s) Eyes Eyes: Denies blurry vision or change in vision ENT ENT ED: Denies ear pain or sore throat Cardiovascular Cardiovascular: Denies chest pain or palpitations Respiratory/Chest Respiratory/Chest: Denies cough, dyspnea or dyspnea on exertion Gastrointestinal Gastrointestinal: Reports abdominal pain, diarrhea, nausea and vomiting Genitourinary Genitourinary ED: Denies dysuria or urinary frequency Musculoskeletal Musculoskeletal: Denies arthralgias or myalgias Integumentary Denies rash Neurologic Neurologic: Denies headache(s) or paresthesias Psychiatric Psychiatric: Denies anxiety or depression Endocrine Endocrinology: Denies polydipsia or polyuria Allergic/Immunologic Allergic/Immunologic ED: Denies urticaria EXAM Physical Exam Const Vital Signs: 02/27/21 02:55 02/27/21 05:01 Temperature 98.4 F Temperature Source Temporal Pulse Rate 58 L Respiratory Rate 16 14 Blood Pressure 132/86 H Blood Pressure Mean 101 Pulse Ox 97 Oxygen Delivery Method Room Air Positive well nourished and well developed General Appearance ED: well developed HEENT Reports normocephalic, head/scalp atraumatic and moist mucous membranes Eyes PERRL and EOMs intact bilaterally Neck no lymphadenopathy and supple General: Negative for tenderness Chest Wall inspection of chest normal Resp normal respiratory effort and clear to auscultation bilaterally Cardio regular rate, regular rhythm and no murmurs GI normal to inspection, nondistended, normoactive bowel sounds Palpation: Negative for tender, guarding or rebound tenderness present Back/Spine no CVA tenderness Cervical Spine: Negative for cervical spine tenderness Thoracic Spine / Upper Back: Negative for thoracic spinal tenderness Extremity normal to inspection General Extremety ED: Negative for tenderness Neuro oriented x3 and CN's II-XII intact bilaterally Neuro Narrative: No focal deficits appreciated. Sensorium / Orientation: alert Psych mental status grossly normal Skin no rashes or lesions noted, no wounds and skin turgor normal MDM MDM MDM Narrative Medical decision making narrative: Patient presents with abdominal pain, nausea, vomiting, diarrhea. Her symptoms do seem consistent with an infectious gastroenteritis. She was treated with fluids, Zofran, Toradol, and Bentyl. She states that her pain is actually worsening. She was given morphine and had total resolution of her symptoms. Labs are unremarkable. Patient does have bacteria in her urine, but no white cells. She is not been complaining of dysuria or frequency. I do not feel this needs treated. With her persistent p ain, the patient underwent CT imaging. This shows no evidence of acute intra- abdominal process. At this point with control of her symptoms, control of her pain, and a benign work-up I do feel that she is safe for outpatient therapy. The patient will be treated with Zofran and Bentyl. She will be discharged home. Impression 1. Gastroenteritis Lab Data Attestation: I reviewed the patient's lab results. Labs: Laboratory Results - last 24 hr 02/27/21 02/27/21 02/27/21 03:15 03:15 03:15 WBC 5.1 RBC 4.51 Hgb 13.4 Hct 39.9 MCV 88.5 MCH 29.7 MCHC 33.6 RDW Std Deviation 38.5 RDW Coeff of Zach 11.9 Plt Count 258 MPV 9.3 Immature Gran % (Auto) 0.200 Neut % (Auto) 56.8 Lymph % (Auto) 30.6 [place] % (Auto) 9.8 Eos % (Auto) 1.8 Baso % (Auto) 0.8 Absolute Neuts (auto) 2.9 Absolute Lymphs (auto) 1.56 Nucleated RBC % 0 Sodium 140 Potassium 4.1 Chloride 106 Carbon Dioxide 27.0 Anion Gap 7 BUN 11 Creatinine 0.90 Estim Creat Clear Calc 89.69 Est GFR (MDRD) Af Amer 94 Est GFR (MDRD) Non-Af 78 BUN/Creatinine Ratio 12.2 Glucose 99 Calcium 8.8 Total Bilirubin 0.40 AST 30 ALT 35 Alkaline Phosphatase 47 Total Protein 7.3 Albumin 3.9 Globulin 3.4 Albumin/Globulin Ratio 1.1 Urine Color Yellow Urine Clarity Turbid Urine pH 7.0 Ur Specific [place] 1.015 Urine Protein 15 H Urine Glucose (UA) Normal Urine Ketones Negative Urine Occult Blood 150 H Urine Nitrite Negative Urine Bilirubin Negative Urine Urobilinogen Normal Ur Leukocyte Esterase Negative Urine RBC 0-5 SEEN Urine WBC 0 SEEN Ur Squamous Epith Cells 5-10 SEEN Amorphous Sediment 1+ Urine Bacteria 4+ Urine Mucus 0 SEEN Urine Test Negative Radiography Diagnostic Testing: Radiology Impression Abdomen/Pelvis CT 02/27/21 03:39 IMPRESSION: No acute findings in the abdomen or pelvis. No bowel obstruction. Normal appendix. Electronically Signed: Gabriel Jacobo MD at 5:20 EDT , Service support , Discharge Plan Triage Chief Complaint: Nausea/Vomiting/Diarrhea ED Provider: Jose Kevin Dx/Rx/DC Orders Instructions: ED Gastroenteritis, Viral (Adult) Prescriptions: New ondansetron [ondansetron] 4 MG tablet 4 mg PO Q8H PRN PRN (Reason: Nausea) Qty: 10 RF: 0 dicyclomine 10 MG capsule 20 mg PO TIDAC Qty: 20 RF: 0 No Action norethindrone ac-eth estradiol [Aurovela 09/28 ()] 1-20 mg-mcg tablet 1 tab PO DAILY Qty: 21 RF: 12 Primary Care Provider: Alejo Sands NP Referrals: Alejo Sands NP, PRE SCHOOL MANAGER-C [Primary Care Provider] -
[2021-02-27] MEDS: 0.9% Normal Saline 1,000 ML 1000 ML IV (03:16)
[2021-02-27] MEDS: Dicyclomine 20 MG/2 ML Vial IM (03:16)
[2021-02-27] MEDS: Ketorolac 15 MG/ML Vial IV (03:16)
[2021-02-27] MEDS: Ondansetron 4 MG/2 ML Vial IV (03:16)
[2021-02-27 03:21] LABS: Mucous, Urine 0 SEEN /hpf (<or=2+); White Blood Cells 0 SEEN /hpf (0-5)
[2021-02-27 03:29] LABS: Absolute Lymphocyte Count 1.56 X10^3/uL (0.83-4.51); Absolute Neutrophil Count 2.9 X10^3/uL (2.0-7.7); Basophil# 0.04 X10^3/uL; Basophil% 0.8 % (0-1); Eosinophil# 0.09 X10^3/uL; Eosinophils% 1.8 % (0-5); Hematocrit 39.9 % (37-47); Hemoglobin 13.4 g/dL (12.0-15.0); Lymphocyte # 1.56 X10^3/ul (0.83-4.51); Lymphocyte % 30.6 % (19-41); Mean Corp Hgb Conc 33.6 g/dL (32-36); Mean Corpuscular Hgb 29.7 pg (27.0-32.0); Mean Corpuscular Volume 88.5 fL (81-99); Mean Platelet Vol. 9.3 fl (6.2-12.0); Monocyte% 9.8 % (0-10); NRBC Flagged by Analyzer 0 % (0-5); Neutrophil % 56.8 % (47-70); Platelet Count 258 K/mm3 (150-450); RBC Distribution Width CV 11.9 % (11.6-14.6); RBC Distribution Width SD 38.5 fl (35.1-43.9); Red Blood Count 4.51 M/mm3 (4.2-5.4); White Blood Count 5.1 K/mm3 (4.4-11.0)
[2021-02-27 03:34] LABS: Color, Urine Yellow (Yellow); Glucose, Dipstick Normal (Normal); Ketone-Dipstick Negative (Negative); Leukocyte Esterase-Dipstick Negative /ul (Negative); Nitrite-Dipstick Negative (Negative); Occult Blood-Urine 150 /ul (Negative); Protein-Dipstick 15 mg/dl (Negative); Specific Gravity, Urine 1.015 (1.002-1.030); Urine Bilirubin Dipstick Negative (Negative); Urine Clarity Turbid (Clear); Urine Urobilinogen Normal (Normal)
[2021-02-27 03:39] LABS: ALB/GLOB Ratio 1.1 RATIO (0.9-2.4); AST(SGOT) 30 U/L (15-37); Alanine Aminotransfer ALT/SGPT 35 U/L (13-56); Albumin, Serum 3.9 g/dL (3.2-5.0); Alkaline Phosphatase 47 U/L (45-117); Anion Gap 7 (5-15); BUN 11 mg/dL (7-18); BUN/Creat Ratio 12.2 RATIO (10-20); Calcium,Total 8.8 mg/dL (8.5-10.1); Chloride 106 mmol/L (98-107); EST Glomerular Filtration Rate 78 mL/min (>60); Est Glom Filt Rate - Afr Amer 94 mL/min (>60); Estimated Creatinine Clearance 89.69 ml/min; Globulin 3.4 g/dL (2.2-4.2); Glucose 99 mg/dL (74-106); Potassium 4.1 mmol/L (3.5-5.1); Protein, Total 7.3 g/dL (6.4-8.2); Sodium Level 140 mmol/L (136-145)
--- NOTE | 2021-02-27 03:39 | CT_ITS ---
STUDY: CT ABDOMEN AND PELVIS WITH CONTRAST REASON FOR EXAM: Female, 30 years old. Abdominal pain. Vomiting. RADIATION DOSAGE (If Supplied By Facility): CTDIvol = ( 14.90 ) mGy, DLP = ( 864.16 ) mGycm TECHNIQUE: Transaxial images were obtained from the dome of the diaphragm to the symphysis pubis without oral contrast. IV 100mL Isovue-300 was administered. Sagittal and coronal images were reconstructed. Individualized dose optimization techniques were used for this CT. COMPARISON: September 25, 2019. FINDINGS: The visualized lung bases are unremarkable. The visualized portions of the heart are within normal limits. Normal liver. There is non-visualization of the gallbladder, which may be secondary to either contraction or a prior cholecystectomy. Normal spleen. Normal pancreas. Normal bilateral adrenal glands. Normal right kidney. Normal left kidney. Normal visualized stomach. Fluid-filled nondilated loops of small bowel left lower quadrant. Normal colon. The appendix is visualized and appears normal. Normal abdominal aorta. Normal inferior vena cava. Normal retroperitoneum. No intra-abdominal free air. Normal urinary bladder. The uterus is grossly normal. No adnexal mass is seen. Normal abdominal wall. Normal osseous structures. CT/Abdomen/Pelvis W IV Cont ONLY IMPRESSION: No acute findings in the abdomen or pelvis. No bowel obstruction. Normal appendix. Electronically Signed: Gabriel Jacobo MD at 5:20 EDT , Service support ,
[2021-02-27 03:40] LABS: Amorphous Sediment 1+; Bacteria 4+ /hpf (None Seen); Internal QC Validated? YES +Cl - CLEAR BKGD; Pregnancy, Urine Negative Negative; Red Blood Cells-Urine 0-5 SEEN /hpf (0-5); Squamous Epithelial Cells - UA 5-10 SEEN /hpf (5-10)
[2021-02-27] MEDS: Morphine 4 MG/ML Syringe IV (03:48)
[2021-02-27 05:01] VITALS: RESP 14
[2021-02-27 05:28] VITALS: BP 130/82; PULSE 71; RESP 18; O2SAT 100
== END 2021-02-27 05:29 | disposition home or self-care (01) ==
LOC: ED 05:01
PROVIDERS: Emergency Provider Emergency Medicine; PCP Nurse Practitioner Family
DX: K52.9 Noninfective gastroenteritis and colitis, unspecified (principal); Z79.899 Other long term (current) drug therapy
CPT/HCPCS: 74177; 80053; 81001; 81025; 85025; 96372; 96374; 96375; 99284; J7030; Q9967; A4216; J2405

== ENCOUNTER 2021-03-01 14:50 | Emergency (ER) | payer MEDICAID, SELFPAY ==
[2021-03-01 14:52] VITALS: BP 145/74; PULSE 59; RESP 16; TEMP 36.7; O2SAT 99; BMI 25.9
[2021-03-01 16:48] LABS: Absolute Lymphocyte Count 1.55 X10^3/uL (0.83-4.51); Absolute Neutrophil Count 6.4 X10^3/uL (2.0-7.7); Basophil# 0.03 X10^3/uL; Basophil% 0.3 % (0-1); Eosinophil# 0.12 X10^3/uL; Eosinophils% 1.4 % (0-5); Hematocrit 43.6 % (37-47); Hemoglobin 14.5 g/dL (12.0-15.0); Lymphocyte # 1.55 X10^3/ul (0.83-4.51); Lymphocyte % 17.9 % (19-41); Mean Corp Hgb Conc 33.3 g/dL (32-36); Mean Corpuscular Hgb 29.6 pg (27.0-32.0); Mean Platelet Vol. 9.3 fl (6.2-12.0); Monocyte# 0.54 X10^3/uL; Monocyte% 6.2 % (0-10); NRBC Flagged by Analyzer 0 % (0-5); Neutrophil # 6.42 X10^3/uL (2.7-7.7); Platelet Count 283 K/mm3 (150-450); RBC Distribution Width CV 11.9 % (11.6-14.6); White Blood Count 8.7 K/mm3 (4.4-11.0)
[2021-03-01 16:56] LABS: Mucous, Urine 0 SEEN /hpf (<or=2+); Red Blood Cells-Urine 0 SEEN /hpf (0-5); White Blood Cells 0 SEEN /hpf (0-5)
[2021-03-01 17:00] LABS: Internal QC Validated? YES +Cl - CLEAR BKGD; Pregnancy, Serum, hCG Quali. NEGATIVE Negative
[2021-03-01 17:01] LABS: Color, Urine Yellow (Yellow); Glucose, Dipstick Normal (Normal); Ketone-Dipstick Negative (Negative); Leukocyte Esterase-Dipstick Negative /ul (Negative); Nitrite-Dipstick Negative (Negative); Occult Blood-Urine 10 /ul (Negative); Protein-Dipstick Negative (Negative); Specific Gravity, Urine 1.015 (1.002-1.030); Urine Bilirubin Dipstick Negative (Negative); Urine Clarity Clear (Clear); Urine Urobilinogen Normal (Normal)
[2021-03-01 17:02] VITALS: BP 141/85; PULSE 64; O2SAT 100
--- NOTE | 2021-03-01 17:03 | EDS_ITS ---
HPI HPI - GI History of Present Illness Chief Complaint: Abd Pain Detail of Chief Complaint: Abdominal pain x3 days Informant: patient Abdominal Pain/Flank Pain Current Severity: 8/10 Nausea/Vomiting/Emesis GI Symptom: Positive for Nausea and Vomiting Narrative Narrative: Patient presents to the emergency department with abdominal pain for last 3 days. Patient states that she was seen in the emergency department here at [facility] 3 days ago and had labs and a CT scan which really did not find any reason for her pain. Patient subsequently went to [facility] yesterday and was told that she had pancreatitis and they wanted to transfer her here for admission however she states that she had finals exams and did not want to come in at that time. Patient continues to complain of nausea and intermittent vomiting. She rates her pain an 8 out of 10. Patient states her gallbladder is been removed. She is never had pancreatitis before. She denies heavy alcohol use and states that she just uses occasionally. Prior similar symptoms: No PFSH PFSH Medical History (Updated 03/01/21 @ 19:[address] Guero Briceño DO) Gallstone pancreatitis Missed ab (~08/2019) No pertinent past medical history Home Medications norethindrone acetate 1 mg-ethinyl estradiol 20 mcg tablet 1 tab PO DAILY #21 tab 01/27/21 [Rx Last Taken Unknown] dicyclomine 20 mg PO TIDAC #20 capsule 02/27/21 [Rx Last Taken Unknown] ondansetron 4 mg PO Q8H PRN PRN #10 tab 02/27/21 [Rx Last Taken Unknown] hydrocodone-acetaminophen 1 tab PO Q4H PRN PRN 2 Days #10 tablet 03/01/21 [Rx Last Taken Unknown] lansoprazole [Prevacid] 30 mg PO DAILY #14 cap 03/01/21 [Rx Last Taken Unknown] Allergy/AdvReac Type Severity Reaction Status Date / Time Penicillins Allergy Hives Verified 03/01/21 14:51 Family History Mother Asthma Surgical History H/O dilation and curettage Hx of cholecystectomy S/P tonsillectomy Social History Smoking Status: Never smoker alcohol intake: current details: occasionally substance use type: does not use caffeine: Yes what type of physical activity do you participate in: aerobics frequency: 3-4 times per week seatbelt use: always do you feel safe at home: Yes additional social history: Single-[facility] [employer] ROS ROS ED Constitutional Constitutional ED: Reports systems reviewed and no addt'l complaints, except as documented; Denies body ache(s), change in weight or chills Eyes Eyes: Denies acute decrease in peripheral vision, change in vision, double vision or loss of vision ENT ENT ED: Reports none; Denies ear pain, lip swelling, loss taste/smell, neck pain, otalgia or sore throat Cardiovascular Cardiovascular: Reports none; Denies abdominal pain, chest pain with activity, leg edema, lightheadedness, palpitations, rapid heart rate or syncope Respiratory/Chest Respiratory/Chest: Reports none; Denies change in mental status, dry cough, dyspnea, hemoptysis, shortness of breath at rest or shortness of breath with exertion Gastrointestinal Gastrointestinal: Reports none, abdominal pain, nausea and vomiting; Denies change in stool character, diarrhea, hematemesis, hematochezia, melena or rectal bleeding Genitourinary Genitourinary ED: Reports none; Denies abdominal discomfort, anuria, dysuria, genital pain or polyuria Musculoskeletal Musculoskeletal: Reports none; Denies arthralgias, back pain, difficulty walking, extremity pain, muscle weakness or myalgias Integumentary Reports none; Denies abscess or rash Neurologic Neurologic: Reports none; Denies abnormal gait, confusion, focal weakness, frequent falls, headache(s), loss of vision, numbness, paresthesias, radicular pain, vertigo or weakness Psychiatric Psychiatric: Reports systems reviewed and no addt'l complaints, except as documented and none; Denies behavioral changes, confusion, difficulty concentrating, hallucinations, suicidal ideation, tactile hallucinations or visual hallucinations Endocrine Endocrinology: Denies none, cold intolerance, excessive sweating, fatigue or heat intolerance Hematologic/Lymphatic Hematologic/Lymphatic: Reports none; Denies anemia, easy bleeding or easy bruising Allergic/Immunologic Allergic/Immunologic ED: Denies as per HPI, none, lip swelling, mouth swelling, throat swelling, tongue swelling or hives EXAM Physical Exam Const Vital Signs: 03/01/21 14:52 03/01/21 17:02 Temperature 98.1 F Temperature Source Temporal Pulse Rate 59 L 64 Respiratory Rate 16 Blood Pressure 145/74 H 141/85 H Blood Pressure Mean 97 103 Pulse Ox 99 100 Oxygen Delivery Method Room Air Room Air Positive well nourished and well developed General Appearance ED: well developed and NAD HEENT Reports TM's clear and moist mucous membranes normocephalic and atraumatic; Negative for trauma or tenderness Tympanic Membrane ED: Yes TM's clear Eyes PERRL and EOMs intact bilaterally General Eye ED: Negative for pale conjunctiva or scleral icterus Neck no lymphadenopathy, supple and no JVD General: Negative for tenderness Chest Wall inspection of chest normal and palpation of chest normal Chest: Negative for tenderness Resp normal respiratory effort and clear to auscultation bilaterally Effort and Inspection: Negative for respiratory distress or pain with movement Auscultation: Negative for rhonchi, wheezes or diminished lung sounds Cardio regular rate, regular rhythm, S1 normal heart sound, S2 normal heart sound and no murmurs Peripheral Pulses: pulses 2+ throughout GI normal to inspection, nondistended, normoactive bowel sounds, soft to palpation, non-tender, non-distended and no masses GI Narrative: Patient has tenderness palpation over the epigastric region with some guarding. There is no rebound, rigidity, or peritoneal signs. Palpation: tender Back/Spine no CVA tenderness and no thoracic nor lumbar tenderness Extremity normal to inspection General Extremety ED: Negative for edema General Extremity: Negative for edema Neuro oriented x3, CN's II-XII intact bilaterally, no sensory deficits noted and gait normal Sensorium / Orientation: awake, alert, oriented to person, oriented to place and oriented to time Motor Exam: strength 5/5 throughout and strength abnormal Psych mental status grossly normal Skin no rashes or lesions noted and no wounds MDM MDM MDM Narrative Medical decision making narrative: Patient had nebulized tablets and was medicated with Dilaudid and Zofran. Patient felt improved after treatment. At this time her lab work-up is unremarkable. Her lipase is normal. She had a CT scan 3 days ago with IV contrast that was normal. I do not feel further imaging is indicated. Patient was in agreement. Lab Data Attestation: I reviewed the patient's lab results. Labs: Laboratory Results - last 24 hr 03/01/21 03/01/21 03/01/21 16:45 16:45 16:45 WBC 8.7 RBC 4.90 Hgb 14.5 Hct 43.6 MCV 89.0 MCH 29.6 MCHC 33.3 RDW Std Deviation 39.0 RDW Coeff of Zach 11.9 Plt Count 283 MPV 9.3 Immature Gran % (Auto) 0.200 Neut % (Auto) 74.0 H Lymph % (Auto) 17.9 L Vance % (Auto) 6.2 Eos % (Auto) 1.4 Baso % (Auto) 0.3 Absolute Neuts (auto) 6.4 Absolute Lymphs (auto) 1.55 Nucleated RBC % 0 Sodium 140 Potassium 3.8 Chloride 105 Carbon Dioxide 28.0 Anion Gap 7 BUN 9 Creatinine 0.90 Estim Creat Clear Calc 93.04 Est GFR (MDRD) Af Amer 95 Est GFR (MDRD) Non-Af 79 BUN/Creatinine Ratio 10.1 Glucose 95 Lactic Acid Calcium 9.2 Total Bilirubin Direct Bilirubin AST ALT Alkaline Phosphatase Total Protein Albumin Globulin Lipase Serum , Qual NEGATIVE Urine Color Urine Clarity Urine pH Ur Specific [place] Urine Protein Urine Glucose (UA) Urine Ketones Urine Occult Blood Urine Nitrite Urine Bilirubin Urine Urobilinogen Ur Leukocyte Esterase Urine RBC Urine WBC Ur Squamous Epith Cells Urine Bacteria Urine Mucus 03/01/21 03/01/21 03/01/21 16:50 17:45 17:45 WBC 7.1 RBC 4.40 Hgb 12.9 Hct 38.9 MCV 88.4 MCH 29.3 MCHC 33.2 RDW Std Deviation 38.7 RDW Coeff of Zach 11.9 Plt Count 252 MPV 9.4 Immature Gran % (Auto) 0.300 Neut % (Auto) 75.9 H Lymph % (Auto) 16.3 L Vance % (Auto) 5.6 Eos % (Auto) 1.3 Baso % (Auto) 0.6 Absolute Neuts (auto) 5.4 Absolute Lymphs (auto) 1.16 Nucleated RBC % 0 Sodium Potassium Chloride Carbon Dioxide Anion Gap BUN Creatinine Estim Creat Clear Calc Est GFR (MDRD) Af Amer Est GFR (MDRD) Non-Af BUN/Creatinine Ratio Glucose Lactic Acid Calcium Total Bilirubin 0.40 Direct Bilirubin 0.09 AST 17 ALT 35 Alkaline Phosphatase 43 L Total Protein 6.7 Albumin 3.6 Globulin 3.1 Lipase 75 Serum , Qual Urine Color Yellow Urine Clarity Clear Urine pH 7.0 Ur Specific [place] 1.015 Urine Protein Negative Urine Glucose (UA) Normal Urine Ketones Negative Urine Occult Blood 10 H Urine Nitrite Negative Urine Bilirubin Negative Urine Urobilinogen Normal Ur Leukocyte Esterase Negative Urine RBC 0 SEEN Urine WBC 0 SEEN Ur Squamous Epith Cells 0-5 SEEN Urine Bacteria 1+ Urine Mucus 0 SEEN 03/01/21 03/01/21 17:45 17:45 WBC RBC Hgb Hct MCV MCH MCHC RDW Std Deviation RDW Coeff of Zach Plt Count MPV Immature Gran % (Auto) Neut % (Auto) Lymph % (Auto) Vance % (Auto) Eos % (Auto) Baso % (Auto) Absolute Neuts (auto) Absolute Lymphs (auto) Nucleated RBC % Sodium Potassium Chloride Carbon Dioxide Anion Gap BUN Creatinine Estim Creat Clear Calc Est GFR (MDRD) Af Amer Est GFR (MDRD) Non-Af BUN/Creatinine Ratio Glucose Lactic Acid 1.5 Calcium Total Bilirubin Direct Bilirubin AST ALT Alkaline Phosphatase Total Protein Albumin Globulin Lipase Serum , Qual NEGATIVE Urine Color Urine Clarity Urine pH Ur Specific [place] Urine Protein Urine Glucose (UA) Urine Ketones Urine Occult Blood Urine Nitrite Urine Bilirubin Urine Urobilinogen Ur Leukocyte Esterase Urine RBC Urine WBC Ur Squamous Epith Cells Urine Bacteria Urine Mucus Discharge Plan Triage Chief Complaint: Abd Pain ED Provider: Guero Briceño Dx/Rx/DC Orders Clinical Impression: Abdominal pain in female Instructions: ED Abdominal Pain Unkn Cause Fem Prescriptions: New hydrocodone-acetaminophen [hydrocodone-acetaminophen] 1 TABLET tablet 1 tab PO Q4H PRN PRN (Reason: Pain) 2 Days Qty: 10 RF: 0 lansoprazole [Prevacid] 30 mg capsule,delayed release(DR/EC) 30 mg PO DAILY Qty: 14 RF: 0 No Action ondansetron [ondansetron] 4 MG tablet 4 mg PO Q8H PRN PRN (Reason: Nausea) Qty: 10 RF: 0 dicyclomine 10 MG capsule 20 mg PO TIDAC Qty: 20 RF: 0 norethindrone ac-eth estradiol [Aurovela 09/28 ()] 1-20 mg-mcg tablet 1 tab PO DAILY Qty: 21 RF: 12 Primary Care Provider: Alejo Sands NP Referrals: Alejo Sands NP, [employer] [Primary Care Provider] - 3-5 Days Disposition Disposition: Home, Self Care
[2021-03-01 17:04] LABS: Anion Gap 7 (5-15); BUN 9 mg/dL (7-18); BUN/Creat Ratio 10.1 RATIO (10-20); Calcium,Total 9.2 mg/dL (8.5-10.1); Chloride 105 mmol/L (98-107); EST Glomerular Filtration Rate 79 mL/min (>60); Est Glom Filt Rate - Afr Amer 95 mL/min (>60); Estimated Creatinine Clearance 93.04 ml/min; Glucose 95 mg/dL (74-106); Potassium 3.8 mmol/L (3.5-5.1); Sodium Level 140 mmol/L (136-145)
[2021-03-01 17:07] LABS: Bacteria 1+ /hpf (None Seen); Squamous Epithelial Cells - UA 0-5 SEEN /hpf (5-10)
[2021-03-01] MEDS: 0.9% Normal Saline 1,000 ML 1000 ML IV (17:12)
[2021-03-01] MEDS: Ondansetron 4 MG/2 ML Vial IV (17:26)
[2021-03-01] MEDS: HYDROmorphone 1 MG/ML Syringe IV (17:26)
[2021-03-01 18:04] LABS: Internal QC Validated? YES +Cl - CLEAR BKGD; Pregnancy, Serum, hCG Quali. NEGATIVE Negative
[2021-03-01 18:11] LABS: AST(SGOT) 17 U/L (15-37); Alanine Aminotransfer ALT/SGPT 35 U/L (13-56); Albumin, Serum 3.6 g/dL (3.2-5.0); Alkaline Phosphatase 43 U/L (45-117); Bilirubin, Direct 0.09 mg/dL (0.00-0.30); Globulin 3.1 g/dL (2.2-4.2); Lipase 75 U/L (73-393); Protein, Total 6.7 g/dL (6.4-8.2)
[2021-03-01 18:12] LABS: Absolute Lymphocyte Count 1.16 X10^3/uL (0.83-4.51); Absolute Neutrophil Count 5.4 X10^3/uL (2.0-7.7); Basophil# 0.04 X10^3/uL; Basophil% 0.6 % (0-1); Eosinophil# 0.09 X10^3/uL; Eosinophils% 1.3 % (0-5); Hematocrit 38.9 % (37-47); Hemoglobin 12.9 g/dL (12.0-15.0); Lymphocyte # 1.16 X10^3/ul (0.83-4.51); Lymphocyte % 16.3 % (19-41); Mean Corp Hgb Conc 33.2 g/dL (32-36); Mean Corpuscular Hgb 29.3 pg (27.0-32.0); Mean Corpuscular Volume 88.4 fL (81-99); Mean Platelet Vol. 9.4 fl (6.2-12.0); Monocyte% 5.6 % (0-10); NRBC Flagged by Analyzer 0 % (0-5); Neutrophil # 5.41 X10^3/uL (2.7-7.7); Neutrophil % 75.9 % (47-70); Platelet Count 252 K/mm3 (150-450); RBC Distribution Width CV 11.9 % (11.6-14.6); RBC Distribution Width SD 38.7 fl (35.1-43.9); White Blood Count 7.1 K/mm3 (4.4-11.0)
[2021-03-01 18:19] LABS: Lactic Acid 1.5 mmol/L (0.4-1.9)
[2021-03-01] MEDS: 0.9% Normal Saline 1,000 ML 150 ML IV (18:40)
[2021-03-01 19:00] VITALS: BP 127/82; PULSE 61; RESP 18; O2SAT 99
[2021-03-01 19:46] VITALS: BP 129/75; PULSE 63; RESP 16; O2SAT 99
== END 2021-03-01 19:48 | disposition home or self-care (01) ==
PROVIDERS: Emergency Provider Emergency Medicine; PCP Nurse Practitioner Family
DX: R10.13 Epigastric pain (principal)
CPT/HCPCS: 80048; 80076; 81001; 83605; 83690; 84703; 85025; 96361; 96374; 96375; 99283; A4216; J2405

== ENCOUNTER → 2021-04-04 09:00 | Outpatient (CLI) | payer MEDICAID, SELFPAY ==
[2021-04-04 09:51] LABS: ALB/GLOB Ratio 1.3 RATIO (0.9-2.4); AST(SGOT) 29 U/L (15-37); Alanine Aminotransfer ALT/SGPT 52 U/L (13-56); Albumin, Serum 3.9 g/dL (3.2-5.0); Alkaline Phosphatase 49 U/L (45-117); Amylase 44 U/L (25-115); Anion Gap 6 (5-15); BUN 8 mg/dL (7-18); BUN/Creat Ratio 11.5 RATIO (10-20); Bilirubin, Direct 0.17 mg/dL (0.00-0.30); Calcium,Total 8.8 mg/dL (8.5-10.1); Chloride 107 mmol/L (98-107); Creatinine, Serum 0.69 mg/dL (0.55-1.02); EST Glomerular Filtration Rate 106 mL/min (>60); Est Glom Filt Rate - Afr Amer 128 mL/min (>60); GGTP 34 U/L (5-55); Glucose 116 mg/dL (74-106); Lipase 83 U/L (73-393); Potassium 3.9 mmol/L (3.5-5.1); Protein, Total 6.9 g/dL (6.4-8.2); Sodium Level 140 mmol/L (136-145)
[2021-04-04 10:25] LABS: Hepatitis C Antibody Non-Reactive (Nonreactive)
[2021-04-05 14:43] LABS: ANTINUCLEAR ANTIBODIES DIRECT Negative (Negative)
[2021-04-05 20:08] LABS: Hepatitis Be Ag Negative (Negative)
[2021-04-05 21:07] LABS: Hepatitis Be Ab Negative (Negative)
== END ==
PROVIDERS: PCP Nurse Practitioner Family; Referring Provider Nurse Practitioner Family; Visit Provider Nurse Practitioner Family
DX: K86.1 Other chronic pancreatitis (principal)
CPT/HCPCS: 36415; 80053; 82150; 82248; 82977; 83690; 86038; 86707; 86803; 87350

== ENCOUNTER 2021-05-03 20:45 | Day surgery (SDC) | payer MEDICAID, SELFPAY ==
[2021-05-03 20:46] VITALS: BP 98/62; PULSE 87; RESP 16; TEMP 36.3; O2SAT 99; BMI 24.3
[2021-05-03 21:08] LABS: Mucous, Urine 0 SEEN /hpf (<or=2+); Red Blood Cells-Urine 0 SEEN /hpf (0-5); White Blood Cells 0 SEEN /hpf (0-5)
[2021-05-03 21:29] LABS: Anion Gap 6 (5-15); BUN 7 mg/dL (7-18); BUN/Creat Ratio 11.3 RATIO (10-20); Chloride 107 mmol/L (98-107); Creatinine, Serum 0.62 mg/dL (0.55-1.02); EST Glomerular Filtration Rate 121 mL/min (>60); Est Glom Filt Rate - Afr Amer 146 mL/min (>60); Estimated Creatinine Clearance 133.84 ml/min; Glucose 124 mg/dL (74-106); Potassium 3.1 mmol/L (3.5-5.1); Sodium Level 138 mmol/L (136-145)
[2021-05-03 21:41] LABS: Absolute Lymphocyte Count 2.35 X10^3/uL (0.83-4.51); Absolute Neutrophil Count 4.7 X10^3/uL (2.0-7.7); Basophil# 0.03 X10^3/uL; Basophil% 0.4 % (0-1); Eosinophil# 0.27 X10^3/uL; Eosinophils% 3.4 % (0-5); Hematocrit 34.2 % (37-47); Hemoglobin 11.3 g/dL (12.0-15.0); Lymphocyte # 2.35 X10^3/ul (0.83-4.51); Lymphocyte % 29.4 % (19-41); Mean Corpuscular Hgb 29.3 pg (27.0-32.0); Mean Corpuscular Volume 88.6 fL (81-99); Mean Platelet Vol. 9.1 fl (6.2-12.0); Monocyte# 0.64 X10^3/uL; NRBC Flagged by Analyzer 0 % (0-5); Neutrophil # 4.68 X10^3/uL (2.7-7.7); Neutrophil % 58.5 % (47-70); Platelet Count 291 K/mm3 (150-450); RBC Distribution Width CV 12.4 % (11.6-14.6); RBC Distribution Width SD 39.8 fl (35.1-43.9); Red Blood Count 3.86 M/mm3 (4.2-5.4)
[2021-05-03 21:46] LABS: Internal QC Validated? YES +Cl - CLEAR BKGD; Pregnancy, Serum, hCG Quali. POSITIVE Negative
[2021-05-03 21:52] LABS: Bacteria RARE /hpf (None Seen); Color, Urine Yellow (Yellow); Glucose, Dipstick Normal (Normal); Ketone-Dipstick Negative (Negative); Leukocyte Esterase-Dipstick Negative /ul (Negative); Nitrite-Dipstick Negative (Negative); Occult Blood-Urine 10 /ul (Negative); Protein-Dipstick 15 mg/dl (Negative); Specific Gravity, Urine 1.015 (1.002-1.030); Squamous Epithelial Cells - UA 0-5 SEEN /hpf (5-10); Urine Bilirubin Dipstick Negative (Negative); Urine Clarity Clear (Clear); Urine Urobilinogen Normal (Normal)
--- NOTE | 2021-05-03 22:24 | US_ITS ---
We are attempting to reach an attending provider to discuss findings. An addendum with communication details will be sent when the communication is complete. EXAM: US , TRANSVAGINAL : 1990 CLINICAL INDICATION: abd pain, + preg TECHNIQUE: Real-time transvaginal obstetrical ultrasound of the maternal pelvis and a first trimester with image documentation. Transvaginal imaging was used for better evaluation of the fetus and adnexa. This report was created using [employer] report generation technology. COMPARISON: None. FINDINGS: GESTATION: The endometrium measures 4 mm. There is no gestational sac. The gestational sac in the right adnexa measures 2.2 x 2.0 x 2.2 cm age 7 weeks 1 day. PLACENTA/AMNIOTIC FLUID: Cannot be adequately evaluated due to the early gestational age. UTERUS/CERVIX: The uterus measures 11.1 x 5.6 x 6.8 cm. There is a 1.2 x 0.6 x 1.0 cm hypoechoic lesion in the uterus compatible small fibroid. OVARIES: The left ovary measures 2.4 x 1.6 x 1.9 cm. Within the right adnexa there is a gestational sac with pole that has a crown-rump length of 1.9 cm age of 8 weeks 2 days. heart rate is 171 bpm. The right ovary measures 2.2 x 1.3 x 1.4 cm. FREE FLUID: No free fluid. US/Transvaginal w/Preg US IMPRESSION: Ectopic in the right adnexa with an average ultrasound age of 7 weeks 5 days and ultrasound estimated due date 12/15/2021. heart rate was measured at 171 bpm. There is no evidence of an intrauterine gestation. at 0000 Reported and signed by: Hernandez Norris MD Electronically Signed: Hernandez Norris MD at 23:59 EDT Tel , Service support ,
[2021-05-03] MEDS: Morphine 4 MG/ML Syringe IV (23:21)
[2021-05-03] MEDS: Ondansetron 4 MG/2 ML Vial IV (23:21)
[2021-05-03 23:35] VITALS: BP 108/64; PULSE 86; RESP 18; TEMP 36.6; O2SAT 100
[2021-05-03 23:36] VITALS: BP 108/64; PULSE 80; RESP 16; TEMP 36.4; O2SAT 100; BMI 24.3
[2021-05-03 23:49] LABS: hCG Titer Quant., Serum 29251 mIU/mL (1-3)
[2021-05-04] VITALS (17 sets, daily range): BP systolic 77–108; BP diastolic 40–69; PULSE 66–93; RESP 16–18; TEMP 36.4–37.3; O2SAT 94–100; BMI 24.3; BMI 25.8
--- NOTE | 2021-05-04 00:40 | HP.PCM.OB_ITS ---
HPI - General HPI Narrative FERNY GRANT, is a 31 F who presents with lower abdominal pain. She has a history of pancreatitis and initially assumed that was causing her symptoms. Reports that at work this evening she developed severe, sharp lower abdominal pain associated with nausea and vomiting as well as a near syncopal episode and presented to the ER. She reports that her last episode of bleeding was approximately 2 weeks ago and was relatively heavy. [facility] Medical History (Updated 05/04/21 @ 00:[address] Patricia Patel MD) Gallstone pancreatitis Missed ab (~08/2019) No pertinent past medical history Home Medications norethindrone acetate 1 mg-ethinyl estradiol 20 mcg tablet 1 tab PO DAILY #21 tab 01/27/21 [Rx Last Taken Unknown] dicyclomine 20 mg PO TIDAC #20 capsule 02/27/21 [Rx Last Taken Unknown] ondansetron 4 mg PO Q8H PRN PRN #10 tab 02/27/21 [Rx Last Taken Unknown] hydrocodone-acetaminophen 1 tab PO Q4H PRN PRN 2 Days #10 tablet 03/01/21 [Rx Last Taken Unknown] lansoprazole [Prevacid] 30 mg PO DAILY #14 cap 03/01/21 [Rx Last Taken Unknown] Allergy/AdvReac Type Severity Reaction Status Date / Time Penicillins Allergy Hives Verified 05/03/21 20:48 Family History Mother Asthma Surgical History H/O dilation and curettage Hx of cholecystectomy S/P tonsillectomy Social History Smoking Status: Never smoker alcohol intake: current details: occasionally substance use type: does not use caffeine: Yes what type of physical activity do you participate in: aerobics frequency: 3-4 times per week seatbelt use: always do you feel safe at home: Yes additional social history: Single-[facility] [employer] History 3 Elective abortions Hx Para 2 Spontaneous abortions 1 Hx # Term Pregnancies Ectopic pregnancies Hx # Pregnancies Multiple births # of living children 2 Past Pregnancies Del. Date Name GA/Weeks Outcome Route Bth Weight Infant Gen Labor Lgth Anesthesia Del Locatn Provider FOB 03/28/08 Oksana 40 live - full term 7lbs 11oz Female none [facility] Kulwinder 08/27/10 Randy 40 live - full term 7lbs 11oz Female none [facility] Dr. Nimesh Miramontes Delivery Date: 03/28/08 No issues during or delivery. Ele Baker Delivery Date: 08/27/10 No issues during or delivery. Ele Baker Constitutional Constitutional: Denies fever(s) Eyes Eyes: Reports systems reviewed and no addt'l complaints, except as documented ENT HEENT: Reports systems reviewed and no addt'l complaints, except as documented Cardiovascular Cardiovascular: Reports systems reviewed and no addt'l complaints, except as documented Respiratory/Chest Respiratory/Chest: Reports systems reviewed and no addt'l complaints, except as documented Gastrointestinal Gastrointestinal: Reports systems reviewed and no addt'l complaints, except as documented, abdominal pain, nausea and vomiting Genitourinary Genitourinary: Reports systems reviewed and no addt'l complaints, except as documented; Denies dysuria Musculoskeletal Musculoskeletal: Reports systems reviewed and no addt'l complaints, except as documented Integumentary Integumentary: Reports systems reviewed and no addt'l complaints, except as documented Neurologic Neurologic: Reports systems reviewed and no addt'l complaints, except as documented Psychiatric Psychiatric: Reports systems reviewed and no addt'l complaints, except as documented Endocrine Endocrinology: Reports systems reviewed and no addt'l complaints, except as documented Hematologic/Lymphatic Hematologic/Lymphatic: Reports systems reviewed and no addt'l complaints, except as documented Allergic/Immunologic Allergic/Immunologic: Reports systems reviewed and no addt'l complaints, except as documented Vital Signs Vital Signs Vital Signs: 05/03/21 20:46 05/03/21 23:35 05/03/21 23:36 Temperature 97.4 F L 97.8 F 97.6 F L Temperature Source Temporal Oral Oral Pulse Rate 87 86 80 Respiratory Rate 16 18 16 Blood Pressure 98/62 108/64 108/64 Blood Pressure Mean 74 78 78 Blood Pressure Source Monitor Blood Pressure Position Supine Blood Pressure Location Left Arm Pulse Ox 99 100 100 Oxygen Delivery Method Room Air Room Air Room Air Weight Weight: 160 lb Body Mass Index (BMI) 24.3 Physical Exam Const alert, oriented x3, no apparent distress, average body habitus, healthy appearing and well nourished HEENT normocephalic and moist oral mucous membranes Head and Scalp: atraumatic Eyes PERRL and EOMs intact bilaterally Neck full ROM Resp normal respiratory effort, no retractions and no use of accessory muscles Cardio regular rate and regular rhythm GI soft to palpation Palpation: tender LLQ and RLQ and guarding LLQ and RLQ; Negative for rigid or mass Extremity normal to inspection and full ROM Skin no rashes or lesions noted Neuro no focal motor deficits and no sensory deficits noted Psych mental status grossly normal, affect normal, speech normal and activity/motor behavior normal Labs Labs Labs: Blood Type A POSITIVE Antibody Screen NEGATIVE Hct 34.2 % (37-47) L Hgb 11.3 g/dL (12.0-15.0) L Obstetrics US Rubella IgG Antibody 39.0 IU/mL Assessment & Plan (1) Ectopic : QUALIFIERS: Location of ectopic : tubal Intrauterine status: without intrauterine Laterality: right Qualified Code(s): O00.101 - Right tubal without intrauterine PLAN: Patient presents with lower abdominal pain since this evening Quant was 29,251 Ultrasound demonstrated live ectopic in the right adnexa measuring 7 weeks 5 days Discussed with patient that is too advanced to allow for medical management and with the degree of severity of her pain, I recommend proceeding with laparoscopic removal today. The nature of the procedure was discussed with the patient. Risks, benefits, indications, and alternatives to the procedure were discussed with the patient including bleeding, infection, and visceral or vascular injury. Agreeable to blood products if medically necessary. Discussed possibility of infection inside abdomen or at incision sites which could require outpatient or inpatient antibiotics. Discussed the possibility of injury to uterus, tubes, ovaries, bowel, and bladder. Aware that this could require intra-op consult to general surgery or urology. Also aware of the possibility of prolonged hospitalization or reoperation. Discussed possibility of need to convert to open to procedure. All questions were answered. Patient voices understanding and agrees to proceed. Patient n.p.o. since yesterday morning Anesthesia and OR team contacted. Plan to proceed with diagnostic laparoscopy, possible right salpingectomy, possible left Charges/Coding Visit Charges Office Visits / Consults: [id number] OV L4 Est
[2021-05-04] MEDS: Morphine 4 MG/ML Syringe IV (00:49)
[2021-05-04] MEDS: 0.9% Normal Saline 1,000 ML 100 ML IV (01:08)
--- NOTE | 2021-05-04 01:11 | PCM.OPRPT ---
Problems Associated Problem List Diagnoses (1) Ectopic : Report of Operation Date of Procedure: 05/04/21 Pre-Operative Diagnosis: Live ectopic Post-Operative Diagnosis: Same Surgery/Procedure Performed:: Diagnostic laparoscopy, right salpingectomy, evacuation of hemoperitoneum Description of Surgical Findings:: Right ruptured ectopic with 2200cc of hemoperitoneum. Otherwise normal uterus, tube, and ovaries Surgeon: Patricia Patel log stacker operator: Jaren Craig Type of Anesthesia: General Specimen's removed: Right fallopian tube and products of conception Drains: straight cath Estimated Blood Loss (mL): 2200 Fluids Replaced: 1000 Description of Procedure: The patient was taken to the operating room where general anesthesia was obtained without difficulty. She was prepped and draped in the dorsal lithotomy position with yellofin stirrups. A sponge stick was inserted in the vagina for uterine manipulation. Gloves were changed and attention was directed to the abdomen. The umbilicus was grasped with towel clamps. 10cc of 0.25% marcaine was used to anesthetize the umbilicus. A 5mm incision was made at the base of the umbilicus. A veress needle was inserted without difficulty and intra-abdominal placement was confirmed using the water-drop test. The abdomen was insufflated to 15 mmHg and the veress needle was removed. A 5mm optiview trochar was then placed under direct visualization. Initial survey of the abdominal cavity revealed no evidence of trauma. The above findings were noted. Additional 5mm ports were placed in the right and left lower quadrants. Significant hemoperitoneum was noted. The left lower quadrant port was extended and replaced with a 12mm port. Suction enrollment processor was used to evacuate hemoperitoneum. A total of 2200 cc of blood were evacuated from the abdominal cavity. The right tube was elevated and the ligasure device was used to grasp, cauterize, and transect the mesosalpinx then amputate the tube. The area was reinspected and good hemostasis was noted. The specimen was placed and a 5 mm bag. The pelvis was copiously irrigated to remove as much blood as possible. The specimen was then removed without difficulty. The procedure was deemed complete. All instruments were removed from the abdominal cavity. The port sites were closed in a simple interrupted fashion using 3-0 monocryl and sterile dressings were placed. The uterine manipulator was removed. The patient was awakened from anesthesia and taken to the recovery room in stable condition. Complications None apparent Admit VTE Documentation VTE Present on Admission: No VTE Mechan Device Prophylaxis: SCD's VTE Pharm Prophylaxis ordered?: No Procedures Urinary/Genital [id number]: [id number] Treat ectopic lapro w/ salpingectomy
--- NOTE | 2021-05-04 01:13 | PCM.DC ---
Discharge Instructions Diet Discharge Diet: No restrictions Activity Discharge Activity: May Not Drive (While on narcotic pain medication) and May Shower May resume sexual activity in: 1-2 weeks Lifting Restrictions: No lifting greater than 20 pounds until postop visit Dressing / Incision Call your doctor if your incision/area has: Continuous Slow Oozing, Sudden Increased Bleeding, Increased Pain/ Swelling, Increased Redness, Foul Smelling Discharge and Swelling at the incision site Call your doctor if you observe: Fever of 101 or Higher, Inability to urinate, Using more than 1 pad per hour, Shortness of breath, Dizziness, Fainting spells, Chest pain and Uncontrolled pain Remove Dressing in: 1 week Cleanse incision/area with: Soap & Water Follow Up Care Please Follow Up With: Patricia Patel MD When: 2 weeks Test Results: Test results from this visit will be discussed in further detail at your follow-up appointment, if applicable. Discharge Plan Admission Primary Reason for Your Visit: Ectopic Attending Provider: Jacqui Sherman Primary Care Provider: Alejo Sands NP Instructions Patient Instructions: After Laparoscopic Treatment ... Discharge Orders/Prescriptions Prescriptions: New ibuprofen 800 mg tablet 800 mg PO Q8H PRN (Reason: pain) Qty: 30 RF: 1 oxycodone 5 mg capsule 5 mg PO Q6H PRN (Reason: pain) 5 Days Qty: 10 RF: 0 Continued ondansetron 4 MG tablet 4 mg PO Q8H PRN PRN (Reason: Nausea) Qty: 10 RF: 0 dicyclomine 10 MG capsule 20 mg PO TIDAC Qty: 20 RF: 0 hydrocodone-acetaminophen 1 TABLET tablet 1 tab PO Q4H PRN PRN (Reason: Pain) 2 Days Qty: 10 RF: 0 lansoprazole [Prevacid] 30 mg capsule,delayed release(DR/EC) 30 mg PO DAILY Qty: 14 RF: 0 norethindrone ac-eth estradiol [Aurovela 09/28 ()] 1-20 mg-mcg tablet 1 tab PO DAILY Qty: 21 RF: 12 Referrals / Follow Up: Alejo Sands NP, [employer] [Primary Care Provider] - Disposition Disposition (needs filled in before D/C Order can be placed): Home, Self Care
--- NOTE | 2021-05-04 01:30 | FAL_PTH ---
PATIENT: FERNY GRANT [place] [facility] [place][id number] AGE/SX: 31/F ROOM: RE05/03/[address]: Dr. Jaqcui Mcdonough MD : 1990 BED: DIS: 05/04/2021 SPEC #: [id number] RECD: 05/04/21 08:48 STATUS: LILLY REIsis #: [id number] COCO: 05/04/21 01:[address]: Jacqui Sherman DEPT: SURGICAL PATHOLOGY RECD BY: Destinee Adams ENTERED: 05/04/21 10:09 SP TYPE: ECTOPIC OTHR DR: Alejo Sands, ANI-Mitzy Tissues: ECTOPIC PREG Procedures: Surgery Specimen Level IV HEADER OPERATION: Laparoscopic removal ectopic PRE-OP DIAGNOSIS: Ectopic TISSUE SUBMITTED: Right fallopian tube and products of conception MICROSCOPIC DIAGNOSIS Right fallopian tube and products of conception: Ruptured fallopian tube, immature chorionic villi, decidua and blood clots (ectopic ). INDU:sherita 05/05/2021 MICROSCOPIC DESCRIPTION Slides are reviewed. GROSS DESCRIPTION Received in fixative is one container labeled with the patient's name and designated right fallopian tube and products of conception. The specimen consists of a previously ruptured fallopian tube measuring 6 cm in length and 0.5 to 2 cm in diameter. The fimbrial end is identified. 1.5 cm away from the tip is a focal area of rupture filled with blood clot is noted. Also present in the container is a detached piece of hemorrhagic tissue measuring 6 x 4 x 1.5 cm. A focal area consistent with placental tissue is noted. tissue is not identified. Sections of fallopian tube reveal the lumen to be filled with blood clot. Customer Care Specialist sections are submitted in four cassettes. / INDU:sherita 05/04/21 TC:5 CPT: 49013
[2021-05-04] MEDS: Bupivacaine Mpf 0.5% 30 ML VIAL (02:19)
--- NOTE | 2021-05-04 02:48 | EDS_ITS ---
HPI HPI - GI History of Present Illness Chief Complaint: Abd Pain Informant: patient Abdominal Pain/Flank Pain Onset: Today Narrative Narrative: Patient presents with sudden onset of lower abdominal pain and dizziness. She knows she has a history of stomach problems and was recently minute for pancreatitis. He states this feels different. She was at work around 7 PM when the symptoms started. She got dizzy with it. She states the pain is worse in her right upper quadrant and on the right side of her abdomen. She had vomiting x2. She has had normal bowel movements. Has associated nausea. She is G4, P2. Her last menstrual period was 2 weeks ago. She notes it was very heavy for 7 days. Her last menstrual period before that was March 12. She denies any fever, shortness of breath or chest pain. She does have a history of cholecystectomy. No other complaints at this time. She denies any urinary symptoms. [facility] Medical History (Updated 05/04/21 @ 02:[address] Suad Lr DO) Gallstone pancreatitis Missed ab (~08/2019) No pertinent past medical history Home Medications norethindrone acetate 1 mg-ethinyl estradiol 20 mcg tablet 1 tab PO DAILY #21 tab 01/27/21 [Rx Last Taken Unknown] dicyclomine 20 mg PO TIDAC #20 capsule 02/27/21 [Rx Last Taken Unknown] ondansetron 4 mg PO Q8H PRN PRN #10 tab 02/27/21 [Rx Last Taken Unknown] hydrocodone-acetaminophen 1 tab PO Q4H PRN PRN 2 Days #10 tablet 03/01/21 [Rx Last Taken Unknown] lansoprazole [Prevacid] 30 mg PO DAILY #14 cap 03/01/21 [Rx Last Taken Unknown] ibuprofen 800 mg PO Q8H PRN #30 tab 05/04/21 [Rx Last Taken Unknown] oxycodone 5 mg PO Q6H PRN 5 Days #10 cap 05/04/21 [Rx Last Taken Unknown] Allergy/AdvReac Type Severity Reaction Status Date / Time Penicillins Allergy Hives Verified 05/03/21 20:48 Family History Mother Asthma Surgical History H/O dilation and curettage Hx of cholecystectomy S/P tonsillectomy Social History Smoking Status: Never smoker alcohol intake: current details: occasionally substance use type: does not use caffeine: Yes what type of physical activity do you participate in: aerobics frequency: 3-4 times per week seatbelt use: always do you feel safe at home: Yes additional social history: Single-Works at [employer] ROS ROS ED Constitutional Constitutional ED: Reports sweats; Denies chills or fever(s) ENT ENT ED: Denies rhinorrhea Cardiovascular Cardiovascular: Denies chest pain Respiratory/Chest Respiratory/Chest: Denies cough or dyspnea Gastrointestinal Gastrointestinal: Reports abdominal pain, nausea and vomiting; Denies constipation or diarrhea Genitourinary Genitourinary ED: Denies dysuria Musculoskeletal Musculoskeletal: Denies arthralgias or myalgias Integumentary Denies rash Neurologic Neurologic: Denies headache(s) or weakness Psychiatric Psychiatric: Denies depression EXAM Physical Exam Const Vital Signs: 05/03/21 20:46 05/03/21 23:35 05/03/21 23:36 Temperature 97.4 F L 97.8 F 97.6 F L Temperature Source Temporal Oral Oral Pulse Rate 87 86 80 Respiratory Rate 16 18 16 Respiratory Pattern Blood Pressure 98/62 108/64 108/64 Blood Pressure Mean 74 78 78 Blood Pressure Source Monitor Blood Pressure Position Supine Blood Pressure Location Left Arm Baseline BP Pulse Ox 99 100 100 Oxygen Delivery Method Room Air Room Air Room Air 05/04/21 00:59 05/04/21 02:43 Temperature 98.0 F 98.0 F Temperature Source Temporal Temporal Pulse Rate 82 89 Respiratory Rate 16 16 Respiratory Pattern Normal Blood Pressure 77/40 L 94/59 L Blood Pressure Mean 52 70 Blood Pressure Source Monitor Monitor Blood Pressure Position Semi-Fowlers Semi-Fowlers Blood Pressure Location Left Arm Right Arm Baseline BP 108/64 Pulse Ox 98 100 Oxygen Delivery Method Room Air Room Air Positive well nourished and well developed General Appearance ED: well developed HEENT normocephalic and atraumatic Eyes PERRL and EOMs intact bilaterally Neck supple Resp normal respiratory effort and clear to auscultation bilaterally Cardio regular rate, regular rhythm and no murmurs GI non-distended Palpation: soft, tender LLQ, RLQ and RUQ and guarding; Negative for rigid Back/Spine no CVA tenderness Extremity full ROM General Extremety ED: Negative for edema General Extremity: Negative for edema Neuro Sensorium / Orientation: alert, oriented to person, oriented to place and oriented to time Motor Exam: Negative for general weakness Psych mental status grossly normal Skin Lesions: no lesions Rashes: no rashes MDM MDM MDM Narrative Medical decision making narrative: Patient is evaluated for sudden onset of lower abdominal pain. She is lightheaded. Her vital signs are normal upon arrival. Protocol orders were placed. Patient was found to have a positive serum . She did not know she was . hCG quant is added on as well as a transvaginal ultrasound. Patient is treated with IV morphine and Zofran in the ER. Ultrasound is concerning for ectopic . There is a live extrauterine gestation seen. SANDWICH AND DRINK CART OPERATOR on-call, Dr. Montague if called and evaluated the patient in the ER. Patient will be admitted to the OR for operative management of ectopic . Patient does remain hemodynamically stable in the ER. Type and screen is sent. Lab Data Labs: Laboratory Results - last 24 hr 05/03/21 05/03/21 05/03/21 20:58 20:58 20:58 WBC 8.0 RBC 3.86 L Hgb 11.3 L Hct 34.2 L MCV 88.6 MCH 29.3 MCHC 33.0 RDW Std Deviation 39.8 RDW Coeff of Zach 12.4 Plt Count 291 MPV 9.1 Immature Gran % (Auto) 0.300 Neut % (Auto) 58.5 Lymph % (Auto) 29.4 [place] % (Auto) 8.0 Eos % (Auto) 3.4 Baso % (Auto) 0.4 Absolute Neuts (auto) 4.7 Absolute Lymphs (auto) 2.35 Nucleated RBC % 0 Sodium 138 Potassium 3.1 L Chloride 107 Carbon Dioxide 25.0 Anion Gap 6 BUN 7 Creatinine 0.62 Estim Creat Clear Calc 133.84 Est GFR (MDRD) Af Amer 146 Est GFR (MDRD) Non-Af 121 BUN/Creatinine Ratio 11.3 Glucose 124 H Calcium 9.0 HCG, Quant Serum , Qual POSITIVE H Urine Color Urine Clarity Urine pH Ur Specific [place] Urine Protein Urine Glucose (UA) Urine Ketones Urine Occult Blood Urine Nitrite Urine Bilirubin Urine Urobilinogen Ur Leukocyte Esterase Urine RBC Urine WBC Ur Squamous Epith Cells Urine Bacteria Urine Mucus Blood Type Antibody Screen 05/03/21 05/03/21 05/03/21 20:58 20:59 23:47 WBC RBC Hgb Hct MCV MCH MCHC RDW Std Deviation RDW Coeff of Zach Plt Count MPV Immature Gran % (Auto) Neut % (Auto) Lymph % (Auto) [place] % (Auto) Eos % (Auto) Baso % (Auto) Absolute Neuts (auto) Absolute Lymphs (auto) Nucleated RBC % Sodium Potassium Chloride Carbon Dioxide Anion Gap BUN Creatinine Estim Creat Clear Calc Est GFR (MDRD) Af Amer Est GFR (MDRD) Non-Af BUN/Creatinine Ratio Glucose Calcium HCG, Quant 62833 H Serum , Qual Urine Color Yellow Urine Clarity Clear Urine pH 6.0 Ur Specific [place] 1.015 Urine Protein 15 H Urine Glucose (UA) Normal Urine Ketones Negative Urine Occult Blood 10 H Urine Nitrite Negative Urine Bilirubin Negative Urine Urobilinogen Normal Ur Leukocyte Esterase Negative Urine RBC 0 SEEN Urine WBC 0 SEEN Ur Squamous Epith Cells 0-5 SEEN Urine Bacteria RARE Urine Mucus 0 SEEN Blood Type A POSITIVE Antibody Screen NEGATIVE Radiography Diagnostic Testing: Radiology Impression Obstetrics Ultrasound 05/03/21 22:24 IMPRESSION: Ectopic in the right adnexa with an average ultrasound age of 7 weeks 5 days and ultrasound estimated due date 12/15/2021. heart rate was measured at 171 bpm. There is no evidence of an intrauterine gestation. at 0000 Reported and signed by: Hernandez Norris MD Electronically Signed: Hernandez Norris MD at 23:59 EDT Tel , Service support , ADDENDUM: 05/04/21 0009 IMPRESSION: Ectopic in the right adnexa with an average ultrasound age of 7 weeks 5 days and ultrasound estimated due date 12/15/2021. heart rate was measured at 171 bpm. There is no evidence of an intrauterine gestation. at 0000 Reported and signed by: Hernandez Norris MD N.B. : The above Results were Read Back by Hernandez Norris MD to Dr. Adeline MD, and understanding confirmed on 05/04/2021 00:03:00 (ET). Electronically Signed: Hernandez Norris MD at 23:59 EDT Tel , Service support , Discharge Plan Dx/Rx/DC Orders Clinical Impression: Ectopic , Abdominal pain in female Disposition Disposition: Acute Care Hospital [facility] Discharge Date/Time: 05/04/21 00:15
[2021-05-04 02:56] LABS: Absolute Lymphocyte Count 0.66 X10^3/uL (0.83-4.51); Absolute Neutrophil Count 8.9 X10^3/uL (2.0-7.7); Basophil# 0.03 X10^3/uL; Basophil% 0.3 % (0-1); Hematocrit 25.1 % (37-47); Hemoglobin 8.3 g/dL (12.0-15.0); Lymphocyte # 0.66 X10^3/ul (0.83-4.51); Lymphocyte % 6.5 % (19-41); Mean Corp Hgb Conc 33.1 g/dL (32-36); Mean Corpuscular Hgb 29.6 pg (27.0-32.0); Mean Corpuscular Volume 89.6 fL (81-99); Mean Platelet Vol. 9.2 fl (6.2-12.0); Monocyte# 0.52 X10^3/uL; Monocyte% 5.1 % (0-10); NRBC Flagged by Analyzer 0 % (0-5); Neutrophil # 8.89 X10^3/uL (2.7-7.7); Neutrophil % 87.4 % (47-70); Platelet Count 228 K/mm3 (150-450); RBC Distribution Width CV 12.3 % (11.6-14.6); RBC Distribution Width SD 39.7 fl (35.1-43.9); White Blood Count 10.2 K/mm3 (4.4-11.0)
[2021-05-04] MEDS: 0.9% Normal Saline 1,000 ML 999 ML IV (03:37)
[2021-05-04] MEDS: 0.9% Normal Saline 1,000 ML 125 ML IV (05:04)
[2021-05-04] MEDS: Acetaminophen 500 MG Tablet 1000 MG PO (06:17)
[2021-05-04] MEDS: Dicyclomine 10 MG Capsule 20 MG PO (06:18)
[2021-05-04 08:41] LABS: Hematocrit 20.7 % (37-47); Hemoglobin 6.7 g/dL (12.0-15.0); Mean Corp Hgb Conc 32.4 g/dL (32-36); Mean Corpuscular Hgb 29.6 pg (27.0-32.0); Mean Corpuscular Volume 91.6 fL (81-99); Mean Platelet Vol. 8.9 fl (6.2-12.0); Platelet Count 191 K/mm3 (150-450); RBC Distribution Width CV 12.6 % (11.6-14.6); RBC Distribution Width SD 41.8 fl (35.1-43.9); Red Blood Count 2.26 M/mm3 (4.2-5.4); White Blood Count 7.7 K/mm3 (4.4-11.0)
--- NOTE | 2021-05-04 08:54 | NURSING ---
DR RODRIGUES MADE AWARE OF PT CBC RESULT - HGB 6.7
--- NOTE | 2021-05-04 09:24 | PN.OBGYN_ITS ---
Subjective Subjective Patient seen and examined. Reports feeling better. Reports still having pain, but has not taken anything other than tylenol. Has not yet passed gas. Tolerating PO intake. Urinating without difficulty. Still feeling somewhat weak and lightheaded. Objective Data Objective Data Vital Signs: Vital Signs Temp Pulse Resp BP Pulse Ox 98.9 F 66 18 90/54 L 100 05/04/21 07:49 05/04/21 07:49 05/04/21 07:49 05/04/21 07:49 05/04/21 07:49 Oxygen Delivery Method Room Air Weight: 170 lb 1.6 oz Body Mass Index (BMI) 25.8 Intake & Output: Intake and Output for Last 24 Hours 05/02/21 05/03/21 05/04/21 23:59 23:59 23:59 Intake Total 1298.33 / 1298.33 Balance 1298.33 / 1298.33 Lab / Micro Data Result Diagrams: 05/04/21 08:30 05/03/21 20:58 Labs: Laboratory Results - last 24 hr 05/03/21 20:58: WBC 8.0, RBC 3.86 L, Hgb 11.3 L, Hct 34.2 L, MCV 88.6, MCH 29.3, MCHC 33.0, RDW Std Deviation 39.8, RDW Coeff of Zach 12.4, Plt Count 291, MPV 9.1, Immature Gran % (Auto) 0.300, Neut % (Auto) 58.5, Lymph % (Auto) 29.4, [place] % (Auto) 8.0, Eos % (Auto) 3.4, Baso % (Auto) 0.4, Absolute Neuts (auto) 4.7, Absolute Lymphs (auto) 2.35, Nucleated RBC % 0 05/03/21 20:58: Sodium 138, Potassium 3.1 L, Chloride 107, Carbon Dioxide 25.0, Anion Gap 6, BUN 7, Creatinine 0.62, Estim Creat Clear Calc 133.84, Est GFR (MDRD) Af Amer 146, Est GFR (MDRD) Non-Af 121, BUN/Creatinine Ratio 11.3, Glucose 124 H, Calcium 9.0 05/03/21 20:58: Serum , Qual POSITIVE H 05/03/21 20:58: HCG, Quant [id number] H 05/03/21 20:59: Urine Color Yellow, Urine Clarity Clear, Urine pH 6.0, Ur Specific [place] 1.015, Urine Protein 15 H, Urine Glucose (UA) Normal, Urine Ketones Negative, Urine Occult Blood 10 H, Urine Nitrite Negative, Urine Bilirubin Negative, Urine Urobilinogen Normal, Ur Leukocyte Esterase Negative, Urine RBC 0 SEEN, Urine WBC 0 SEEN, Ur Squamous Epith Cells 0-5 SEEN, Urine Bacteria RARE, Urine Mucus 0 SEEN 05/03/21 23:47: Blood Type A POSITIVE, Antibody Screen NEGATIVE 05/03/21 23:47: Crossmatch See Detail 05/04/21 02:51: WBC 10.2, RBC 2.80 L, Hgb 8.3 L, Hct 25.1 L, MCV 89.6, MCH 29.6, MCHC 33.1, RDW Std Deviation 39.7, RDW Coeff of Zach 12.3, Plt Count 228, MPV 9.2, Immature Gran % (Auto) 0.700, Neut % (Auto) 87.4 H, Lymph % (Auto) 6.5 L, [place] % (Auto) 5.1, Eos % (Auto) 0.0, Baso % (Auto) 0.3, Absolute Neuts (auto) 8.9 H, Absolute Lymphs (auto) 0.66 L, Nucleated RBC % 0 05/04/21 08:30: WBC 7.7, RBC 2.26 L, Hgb 6.7 L, Hct 20.7 L, MCV 91.6, MCH 29.6, MCHC 32.4, RDW Std Deviation 41.8, RDW Coeff of Zach 12.6, Plt Count 191, MPV 8.9 Micro: Microbiology 05/04/21 01:00 Nasal Secretion SARS-CoV-2 Antigen (Rapid) - Final Radiography Diagnostic Testing: Radiology Impression Obstetrics Ultrasound 05/03/21 22:24 IMPRESSION: Ectopic in the right adnexa with an average ultrasound age of 7 weeks 5 days and ultrasound estimated due date 12/15/2021. heart rate was measured at 171 bpm. There is no evidence of an intrauterine gestation. at 0000 Reported and signed by: Hernandez Norris MD Electronically Signed: Hernandez Norris MD at 23:59 EDT Tel , Service support , ADDENDUM: 05/04/21 0009 IMPRESSION: Ectopic in the right adnexa with an average ultrasound age of 7 weeks 5 days and ultrasound estimated due date 12/15/2021. heart rate was measured at 171 bpm. There is no evidence of an intrauterine gestation. at 0000 Reported and signed by: Hernandez Norris MD N.B. : The above Results were Read Back by Hernandez Norris MD to Dr. Adeline MD, and understanding confirmed on 05/04/2021 00:03:00 (ET). Electronically Signed: Hernandez Norris MD at 23:59 EDT Tel , Service support , ROS Constitutional Constitutional: Reports fatigue; Denies fever(s) Cardiovascular Cardiovascular: Denies chest pain, dyspnea or lightheadedness Gastrointestinal Gastrointestinal: Reports abdominal pain; Denies constipation or diarrhea Neurologic Neurologic: Denies dizziness or headache(s) Physical Exam Const alert, oriented x3, no apparent distress, average body habitus, healthy appearing and well nourished HEENT normocephalic Head and Scalp: atraumatic Eyes PERRL and EOMs intact bilaterally Neck full ROM Lymph Lymphatic: no lymphadenopathy noted Resp normal respiratory effort, no retractions and no use of accessory muscles Cardio regular rate GI soft to palpation, non-tender and non-distended Inspection: incision intact and other (dressing in place) Extremity normal to inspection and no clubbing, cyanosis or edema Skin no rashes or lesions noted Neuro no focal motor deficits and no sensory deficits noted Psych mental status grossly normal, affect normal and speech normal Assessment & Plan (1) S/P laparoscopy: PLAN: POD#1 s/p diagnostic lap, RS, evacuation of hemoperitoneum Pain overall controlled with tylenol. Still experiencing some pain but declining pain meds - scheduled ibuprofen ordered Still hypotensive and fatigued - AM CBC shows Hb of 6.7. 2u PRBCs ordered Voiding without difficulty Tolerating PO Anticipate DC to home following transfusion
[2021-05-04] MEDS: oxyCODONE 5 MG Tablet PO (09:28)
--- NOTE | 2021-05-04 10:55 | CASEMGMT ---
Social Work Note SW reviewed chart. Pt with Ectopic . Pt had to get laparoscopic removal. SW in to speak with pt. SW introduced self and role at [facility]. Pt confirms she didn't know she was , states she was not trying to get . Pt states she is handling things ok. Pt states she has two other daughters and they are currently at school while pt is at [facility]. Pt states she is not , states the father of her two daughters are the same father. Pt states she and the father of her children were , but no longer . SW offered support to pt. Pt denied additional needs or concerns at this time. Nolvia Danielle APPLIANCES SAMPLE MAKER, GROCERY WORKER
[2021-05-04] MEDS: Ibuprofen 600 MG Tablet PO (12:16)
--- NOTE | 2021-05-04 15:45 | NURSING ---
update called to Dr Patel.
== END 2021-05-04 16:05 | disposition home or self-care (01) ==
LOC: ED 22:23 → SDC 23:57 → AC 23:58 → MS3 05-04 15:49
PROVIDERS: Obstetrics & Gynecology; Emergency Provider Emergency Medicine; PCP Nurse Practitioner Family; Visit Provider Obstetrics & Gynecology
PROC: 10T24ZZ Resection of Products of Conception, Ectopic, Percutaneous Endoscopic Approach (ICD-10-PCS; CPT 59150; principal; 2021-05-04 01:30)
DX: O00.101 Right tubal pregnancy without intrauterine pregnancy (principal); R71.0 Precipitous drop in hematocrit; K66.1 Hemoperitoneum; Z3A.01 Less than 8 weeks gestation of pregnancy
CPT/HCPCS: 00840; 49322; 59151; 36415; 36430; 76817; 80048; 81001; 84702; 84703; 85025; 85027; 86850; 86900; 86901; 86920; 87426; 88305; 94762; 99282; J7030; J7040; P9016; A4216; J2405

== ENCOUNTER → 2021-07-14 15:38 | Outpatient (CLI) | payer MEDICAID, SELFPAY ==
--- NOTE | 2021-07-14 15:47 | RAD_ITS ---
STUDY: X-RAY CHEST REASON FOR EXAM: Female, 31 years old. COVID x6 WEEKS AGO, WORSENING COUGH SINCE AFTER DIAGNOSIS, SOB COUGH POST COVID TECHNIQUE: XR Chest 2 Views COMPARISON: 2.1518 FINDINGS: There is no demonstrated pleural abnormality. Normal size heart. Normal mediastinum and brandi. Normal visualized pulmonary arteries. Normal visualized aortic arch and descending thoracic aorta. Normal visualized thoracic spine. Normal visualized ribs, clavicles, and shoulders. There is no demonstrated abnormality of the visualized soft tissue structures of the upper abdomen. RAD/Chest PA and Lateral IMPRESSION: There are no acute findings. Electronically Signed: Kev Andrea MD at 16:04 EDT , Service support ,
[2021-07-14 17:16] LABS: Hematocrit 38.5 % (37-47); Hemoglobin 12.3 g/dL (12.0-15.0); Mean Corp Hgb Conc 31.9 g/dL (32-36); Mean Corpuscular Hgb 26.7 pg (27.0-32.0); Mean Corpuscular Volume 83.7 fL (81-99); Mean Platelet Vol. 9.6 fl (6.2-12.0); Platelet Count 280 K/mm3 (150-450); RBC Distribution Width CV 13.3 % (11.6-14.6); RBC Distribution Width SD 40.7 fl (35.1-43.9); White Blood Count 7.7 K/mm3 (4.4-11.0)
[2021-07-14 17:41] LABS: D-Dimer Quantitative (DVT/PE) 1.63 FEU/ug/m (0.27-0.49)
[2021-07-14 17:52] LABS: AST(SGOT) 17 U/L (15-37); Alanine Aminotransfer ALT/SGPT 32 U/L (13-56); Albumin, Serum 3.6 g/dL (3.2-5.0); Alkaline Phosphatase 47 U/L (45-117); Anion Gap 5 (5-15); BUN 10 mg/dL (7-18); BUN/Creat Ratio 12.7 RATIO (10-20); CRP 5.57 mg/L (0.0-3.0); Calcium,Total 8.8 mg/dL (8.5-10.1); Chloride 106 mmol/L (98-107); Creatinine, Serum 0.79 mg/dL (0.55-1.02); EST Glomerular Filtration Rate 91 mL/min (>60); Est Glom Filt Rate - Afr Amer 110 mL/min (>60); Globulin 3.7 g/dL (2.2-4.2); Glucose 127 mg/dL (74-106); Potassium 3.7 mmol/L (3.5-5.1); Protein, Total 7.3 g/dL (6.4-8.2); Sodium Level 140 mmol/L (136-145)
== END ==
PROVIDERS: PCP Nurse Practitioner Family; Referring Provider Nurse Practitioner Family; Visit Provider Nurse Practitioner Family
DX: R50.9 Fever, unspecified (principal); R06.89 Other abnormalities of breathing; Z86.16 Personal history of COVID-19
CPT/HCPCS: 36415; 71046; 80053; 85027; 85379; 86140

== ENCOUNTER 2021-07-15 13:05 | Emergency (ER) | payer MEDICAID, SELFPAY ==
[2021-07-15 13:06] VITALS: BP 166/108; PULSE 91; RESP 16; TEMP 36.6; O2SAT 97; BMI 25.6
[2021-07-15 13:08] VITALS: BP 166/108; PULSE 91; RESP 16; TEMP 36.6; O2SAT 97
--- NOTE | 2021-07-15 13:16 | CT_ITS ---
STUDY: CTA CHEST REASON FOR EXAM: Female, 31 years old. Dyspnea and elevated d-dimer RADIATION DOSAGE (If Supplied By Facility): CTDIvol = ( 9.03 ) mGy, DLP = ( 373.05 ) mGycm TECHNIQUE: The examination was performed with the intravenous administration of IV 100mL Isovue-370. Post-processing of the angiographic images was performed, with multiplanar reformation and 3D reconstruction. Individualized dose optimization techniques were used for this CT. COMPARISON: 14 July 2021 chest x-ray FINDINGS: There is no acute or chronic pulmonary embolism. Aorta is of normal caliber. Lungs are clear. There is no pneumothorax, pulmonary edema or pleural effusions. Mediastinal contents are normal. Osseous structures are intact. Abdominal structures are unremarkable. CT/CTA Chest W/WO Contrast IMPRESSION: 1. No pulmonary embolism 2. No acute chest disease. Electronically Signed: Rodriguez Gomez MD at 14:03 EDT Tel , Service support ,
[2021-07-15 13:17] VITALS: O2SAT 97
--- NOTE | 2021-07-15 13:17 | ED.VIS.DYS ---
HPI History of Present Illness Chief Complaint: Shortness of Breath Detail of Chief Complaint: Shortness of breath and concern for pulmonary embolism Informant: patient Narrative Narrative: Patient presents to the emergency department complaint of shortness of breath and cough. Patient states that she had Covid 6 weeks ago and recovered however 2 weeks ago started coughing again and having exertional dyspnea. She denies chest pain. Patient states that she was on a Z-Rafa and steroids a week ago. She had blood work and a chest x-ray yesterday and today was told she had an elevated D-dimer and she needed to be seen in the ER to rule out PE. She denies recent travel or surgery. She did have surgery 2 months ago for a ruptured ectopic. Patient has an IUD in place. No history of PE or DVT. PFSH PFSH Medical History Asthma Gallstone pancreatitis Missed ab (~08/2019) No pertinent past medical history Pancreatitis Home Medications [id number] [Pancreatic Enzyme] cap PO 05/04/21 [History Last Taken Unknown] etonogestrel 0.12 mg-ethinyl estradiol 0.015 mg/24 hr vaginal ring 1 vag ring VAGINAL Q4W #3 ea 05/12/21 [Rx Last Taken Unknown] benzonatate 100 mg PO Q6H PRN #20 cap 07/15/21 [Rx Last Taken Unknown] Allergy/AdvReac Type Severity Reaction Status Date / Time Penicillins Allergy Hives Verified 07/15/21 13:08 Family History Mother Asthma Surgical History H/O dilation and curettage History of cholecystectomy Hx of cholecystectomy S/P tonsillectomy Social History Smoking Status: Never smoker alcohol intake: current details: occasionally substance use type: does not use caffeine: Yes what type of physical activity do you participate in: aerobics frequency: 3-4 times per week seatbelt use: always do you feel safe at home: Yes additional social history: Single-Works at [employer] ROS ROS ED Constitutional Constitutional ED: Reports systems reviewed and no addt'l complaints, except as documented; Denies body ache(s), change in weight or chills Eyes Eyes: Denies acute decrease in peripheral vision, change in vision, double vision or loss of vision ENT ENT ED: Reports none; Denies ear pain, lip swelling, loss taste/smell, neck pain, otalgia or sore throat Cardiovascular Cardiovascular: Reports none; Denies abdominal pain, chest pain with activity, leg edema, lightheadedness, palpitations, rapid heart rate or syncope Respiratory/Chest Respiratory/Chest: Reports none, cough, dyspnea and dyspnea on exertion; Denies change in mental status, dry cough, hemoptysis, shortness of breath at rest or shortness of breath with exertion Gastrointestinal Gastrointestinal: Reports none; Denies abdominal pain, change in stool character, diarrhea, hematemesis, hematochezia, melena, rectal bleeding or vomiting Genitourinary Genitourinary ED: Reports none; Denies abdominal discomfort, anuria, dysuria, genital pain or polyuria Musculoskeletal Musculoskeletal: Reports none; Denies arthralgias, back pain, difficulty walking, extremity pain, muscle weakness or myalgias Integumentary Reports none; Denies abscess or rash Neurologic Neurologic: Reports none; Denies abnormal gait, confusion, focal weakness, frequent falls, headache(s), loss of vision, numbness, paresthesias, radicular pain, vertigo or weakness Psychiatric Psychiatric: Reports systems reviewed and no addt'l complaints, except as documented and none; Denies behavioral changes, confusion, difficulty concentrating, hallucinations, suicidal ideation, tactile hallucinations or visual hallucinations Endocrine Endocrinology: Denies none, cold intolerance, excessive sweating, fatigue or heat intolerance Hematologic/Lymphatic Hematologic/Lymphatic: Reports none; Denies anemia, easy bleeding or easy bruising Allergic/Immunologic Allergic/Immunologic ED: Denies as per HPI, none, lip swelling, mouth swelling, throat swelling, tongue swelling or hives EXAM Physical Exam Const Vital Signs: 07/15/21 13:06 07/15/21 13:08 07/15/21 13:17 Temperature 97.8 F 97.8 F Temperature Source Temporal Temporal Pulse Rate 91 91 Respiratory Rate 16 16 Respiratory Effort Short of Breath Labored Blood Pressure 166/108 H 166/108 H Blood Pressure Mean 127 127 Pulse Ox 97 97 Oxygen Delivery Method Room Air Room Air Room Air Positive well nourished and well developed General Appearance ED: well developed and NAD HEENT Reports TM's clear and moist mucous membranes normocephalic and atraumatic; Negative for trauma or tenderness Tympanic Membrane ED: Yes TM's clear Eyes PERRL and EOMs intact bilaterally General Eye ED: Negative for pale conjunctiva or scleral icterus Neck no lymphadenopathy, supple and no JVD General: Negative for tenderness Chest Wall inspection of chest normal and palpation of chest normal Chest: Negative for tenderness Resp normal respiratory effort and clear to auscultation bilaterally Effort and Inspection: Negative for respiratory distress or pain with movement Auscultation: Negative for rhonchi, wheezes or diminished lung sounds Cardio regular rate, regular rhythm, S1 normal heart sound, S2 normal heart sound and no murmurs Peripheral Pulses: pulses 2+ throughout GI normal to inspection, nondistended, normoactive bowel sounds, soft to palpation, non-tender, non-distended and no masses Back/Spine no CVA tenderness and no thoracic nor lumbar tenderness Extremity normal to inspection General Extremety ED: Negative for edema General Extremity: Negative for edema Neuro oriented x3, CN's II-XII intact bilaterally, no sensory deficits noted and gait normal Sensorium / Orientation: awake, alert, oriented to person, oriented to place and oriented to time Motor Exam: strength 5/5 throughout and strength abnormal Psych mental status grossly normal Skin no rashes or lesions noted and no wounds MDM MDM MDM Narrative Medical decision making narrative: CTA of the chest was negative for PE or other acute disease process. At this point her symptoms may be sequela of Covid versus reinfection with other upper respiratory virus. I will feel antibiotics are indicated and she just finished Zithromax. She did not feel like steroids helped her when she was taken the prednisone. She has an inhaler at home. This point I will write her prescription for Tessalon Perles and will give referral to pulmonology for follow-up. Patient advised to return if increasing shortness of breath or conditions worsen anyway. Lab Data Attestation: I reviewed the patient's lab results. Radiography Diagnostic Testing: Clinical Impression(s) from Imaging Studies Chest CTA 07/15/21 13:16 IMPRESSION: 1. No pulmonary embolism 2. No acute chest disease. Electronically Signed: Rodriguez Gomez MD at 14:03 EDT Tel , Service support , Discharge Plan Triage Chief Complaint: Shortness of Breath ED Provider: Guero Briceño Dx/Rx/DC Orders Clinical Impression: Viral URI, Acute dyspnea Instructions: ED Dyspnea, ED URI, Viral, No Abx (Adult) Prescriptions: New benzonatate 100 mg capsule 100 mg PO Q6H PRN (Reason: cough) Qty: 20 RF: 0 No Action etonogestrel-ethinyl estradiol [NuvaRing] 0.12-0.015 mg/24 hr ring 1 vag ring vaginal Q4W Qty: 3 RF: 4 Pancreatic Enzyme 4,500-25,000- 20,000 unit Capsule,Delayed Release(Dr/Ec) PO RF: 0 Primary Care Provider: Alejo Sands NP Referrals: Lee Beavers DO [STAFF PHYSICIAN] - 3-5 Days Alejo Sands NP, [facility] INSPECTOR[facility] [Primary Care Provider] - Disposition Disposition: Home, Self Care
[2021-07-15 14:12] VITALS: BP 122/77; PULSE 82; RESP 24; O2SAT 97
== END 2021-07-15 14:19 | disposition home or self-care (01) ==
PROVIDERS: Emergency Provider Emergency Medicine; PCP Nurse Practitioner Family
DX: J06.9 Acute upper respiratory infection, unspecified (principal); J45.909 Unspecified asthma, uncomplicated
CPT/HCPCS: 71275; 99283; Q9967; A4216

== ENCOUNTER → 2021-07-31 13:17 | Outpatient (CLI) | payer MEDICAID, SELFPAY ==
[2021-07-31 13:47] LABS: Absolute Lymphocyte Count 1.77 X10^3/uL (0.83-4.51); Absolute Neutrophil Count 3.3 X10^3/uL (2.0-7.7); Basophil# 0.05 X10^3/uL; Basophil% 0.8 % (0-1); Eosinophil# 0.43 X10^3/uL; Eosinophils% 7.1 % (0-5); Hematocrit 36.5 % (37-47); Hemoglobin 11.8 g/dL (12.0-15.0); Lymphocyte # 1.77 X10^3/ul (0.83-4.51); Lymphocyte % 29.4 % (19-41); Mean Corp Hgb Conc 32.3 g/dL (32-36); Mean Corpuscular Hgb 26.9 pg (27.0-32.0); Mean Corpuscular Volume 83.1 fL (81-99); Mean Platelet Vol. 9.5 fl (6.2-12.0); Monocyte# 0.42 X10^3/uL; NRBC Flagged by Analyzer 0 % (0-5); Neutrophil # 3.34 X10^3/uL (2.7-7.7); Neutrophil % 55.5 % (47-70); Platelet Count 264 K/mm3 (150-450); RBC Distribution Width SD 42.7 fl (35.1-43.9); Red Blood Count 4.39 M/mm3 (4.2-5.4)
[2021-07-31 14:26] LABS: hCG Titer Quant., Serum < 1 mIU/mL (1-3)
[2021-07-31 14:33] LABS: Thyroid Stim Hormone (TSH) 1.58 uIU/mL (0.358-3.74)
== END ==
PROVIDERS: PCP Nurse Practitioner Family; Referring Provider Obstetrics & Gynecology; Visit Provider Obstetrics & Gynecology
DX: N93.9 Abnormal uterine and vaginal bleeding, unspecified (principal); Z13.29 Encounter for screening for other suspected endocrine disorder
CPT/HCPCS: 36415; 84443; 84702; 85025

== ENCOUNTER → 2022-08-13 | Outpatient (CLI) | payer MEDICAID, SELFPAY | END | disposition home or self-care (01) | LOC: RAD 17:12 | PROVIDERS: PCP Nurse Practitioner Family; Referring Provider Nurse Practitioner Family; Visit Provider Nurse Practitioner Family | DX: M25.551 Pain in right hip (principal) ==

== ENCOUNTER → 2022-08-14 | Outpatient (CLI) | payer MEDICAID, SELFPAY ==
--- NOTE | 2022-08-14 14:35 | RAD_ITS ---
STUDY: X-RAY - PELVIS AND BILATERAL HIPS REASON FOR EXAM: Female, 32 years old. PAIN -- HIP MIN 4 VIEWS BILAT TECHNIQUE: AP view of the pelvis.? 2 views of the right hip, and 2 views of the left hip were obtained. COMPARISON: None. FINDINGS: There is a non-specific bowel gas pattern. Normal visualized soft tissue structures. Normal bilateral iliac wings, sacroiliac joints and visualized sacrum. Normal bilateral superior and inferior pubic rami. Normal pubic symphysis. Normal bilateral ischial tuberosities. Normal visualized right femoral head. Normal right acetabulum. Normal right hip joint. Normal visualized left femoral head. Normal left acetabulum. Normal left hip joint. RAD/Hips B/L min 2 views w/ Pelvis IMPRESSION: Normal x-ray examination of the pelvis and bilateral hips. Electronically Signed: Alejo Kim MD at 17:03 EST ,
== END | disposition home or self-care (01) ==
LOC: RAD 14:21
PROVIDERS: PCP Nurse Practitioner Family; Visit Provider Nurse Practitioner Family
DX: M25.551 Pain in right hip (principal); M25.552 Pain in left hip
CPT/HCPCS: 73521

== ENCOUNTER → 2022-08-17 | Outpatient (CLI) | payer MEDICAID, SELFPAY ==
[2022-08-17 08:20] LABS: Color, Urine Yellow (Yellow); Glucose, Dipstick Normal (Normal); Ketone-Dipstick Negative (Negative); Leukocyte Esterase-Dipstick Negative /ul (Negative); Nitrite-Dipstick Negative (Negative); Occult Blood-Urine 50 /ul (Negative); Protein-Dipstick Negative (Negative); Specific Gravity, Urine 1.015 (1.002-1.030); Urine Bilirubin Dipstick Negative (Negative); Urine Clarity Clear (Clear); Urine Urobilinogen Normal (Normal); Urine pH 6.5 (5.0 - 8.0)
[2022-08-17 08:51] LABS: ALB/GLOB Ratio 1.4 RATIO (0.9-2.4); AST(SGOT) 20 U/L (15-37); Alanine Aminotransfer ALT/SGPT 42 U/L (13-56); Albumin, Serum 4.2 g/dL (3.2-5.0); Alkaline Phosphatase 38 U/L (45-117); Anion Gap 3 (5-15); BUN 9 mg/dL (7-18); Calcium,Total 8.8 mg/dL (8.5-10.1); Chloride 105 mmol/L (98-107); EST Glomerular Filtration Rate 78 mL/min (>60); Est Glom Filt Rate - Afr Amer 94 mL/min (>60); Globulin 3.1 g/dL (2.2-4.2); Glucose 87 mg/dL (74-106); Potassium 3.7 mmol/L (3.5-5.1); Protein, Total 7.3 g/dL (6.4-8.2); Rheumatoid Factor < 10.0 IU/mL (<15); Sodium Level 138 mmol/L (136-145); Uric Acid 4.8 mg/dL (2.6-6.0)
[2022-08-17 09:10] LABS: Erythrocyte Sedimentation Rate 1 mm/hr (0-30)
[2022-08-18 09:48] LABS: ASO Titer 114.1 IU/mL (0.0-200.0)
[2022-08-21 16:08] LABS: ANTINUCLEAR ANTIBODIES DIRECT Negative (Negative)
== END | disposition home or self-care (01) ==
LOC: LAB 07:52
PROVIDERS: PCP Nurse Practitioner Family; Visit Provider Nurse Practitioner Family
DX: M25.551 Pain in right hip (principal); M25.552 Pain in left hip
CPT/HCPCS: 36415; 80053; 81002; 84550; 85652; 86038; 86060; 86431; 87086

== ENCOUNTER 2023-07-20 14:01 | Emergency (ER) | payer MEDICAID, SELFPAY ==
[2023-07-20 14:01] VITALS: BP 116/83; PULSE 78; RESP 14; TEMP 36.4; O2SAT 99; BMI 20.4
[2023-07-20 14:24] VITALS: O2SAT 99
--- NOTE | 2023-07-20 14:40 | EKG12_ITS ---
Test Reason : SOB Blood Pressure : / mmHG Vent. Rate : 057 BPM Atrial Rate : 057 BPM P-R Int : 118 ms QRS Dur : 076 ms QT Int : 402 ms P-R-T Axes : 017 032 033 degrees QTc Int : 391 ms Sinus bradycardia with marked sinus arrhythmia Otherwise normal ECG Confirmed by SINAN FORTUNE, NILSON ([id number]), editorial specialist ALOK LEMONS ([id number]) on 07/31/2023 9:55:06 AM Referred By: Confirmed By:NILSON MENON MD
--- NOTE | 2023-07-20 14:41 | ED.VIS.DYS ---
HPI History of Present Illness Chief Complaint: Shortness of Breath Informant: patient Onset/Context/Timing Onset: Weeks Context: gradual Narrative Narrative: Patient presents secondary to continued shortness of breath. A week or 2 ago she developed cough, congestion, fever. She tested negative for COVID. She presented to the urgent care earlier this week with complaints of continued shortness of breath. She was given a steroid taper. Patient states she did not have any improvement on the steroids. She went back to the urgent care today but they did not have imaging available so she was sent to the emergency room. She states she has trouble keeping up with her job at work because of shortness of breath. She has difficulty lying down flat. She has a dry cough. [facility] Medical History Asthma Gallstone pancreatitis Missed ab (~08/2019) No pertinent past medical history Pancreatitis Home Medications bupropion HCl 150 mg 24 hr tablet, extended release (Wellbutrin XL) 150 mg PO QAM 08/16/21 [History Last Taken Unknown] norgestimate 0.25 mg-ethinyl estradiol 35 mcg tablet (Sprintec (28)) 1 tab PO DAILY #84 tabs 05/06/23 [Rx Last Taken Unknown] doxycycline monohydrate 100 mg capsule 100 mg PO BID #20 CAPSULES 07/20/23 [Rx Last Taken Unknown] Allergy/AdvReac Type Severity Reaction Status Date / Time Penicillins Allergy Hives Verified 07/20/23 14:01 Family History Mother Asthma Surgical History H/O dilation and curettage History of cholecystectomy Hx of cholecystectomy S/P tonsillectomy Social History Smoking Status: Never smoker alcohol intake: current details: occasionally substance use type: does not use caffeine: Yes what type of physical activity do you participate in: aerobics frequency: 3-4 times per week seatbelt use: always do you feel safe at home: Yes additional social history: Single-Works at [employer] ROS ROS ED Constitutional Constitutional ED: Denies chills or fever(s) Eyes Eyes: Denies change in vision ENT ENT ED: Denies rhinorrhea or sore throat Cardiovascular Cardiovascular: Reports other Details: Chest feels tight ; Denies palpitations Respiratory/Chest Respiratory/Chest: Reports cough and dyspnea Gastrointestinal Gastrointestinal: Denies abdominal pain, nausea or vomiting Genitourinary Genitourinary ED: Denies dysuria Musculoskeletal Musculoskeletal: Denies back pain or extremity pain Integumentary Denies Abrasions or rash Neurologic Neurologic: Denies headache(s) or weakness Psychiatric Psychiatric: Denies anxiety or depression Allergic/Immunologic Allergic/Immunologic ED: Denies lip swelling or urticaria EXAM Physical Exam Const Vital Signs: 07/20/23 14:01 07/20/23 14:24 07/20/23 16:01 Temperature 97.6 F L Temperature Source Temporal Pulse Rate 78 73 Respiratory Rate 14 19 H Respiratory Effort Short of Breath Blood Pressure 116/83 H 116/89 H Blood Pressure Mean 94 98 Pulse Ox 99 98 Oxygen Delivery Method Room Air Room Air Room Air 07/20/23 17:57 Temperature Temperature Source Pulse Rate 61 Respiratory Rate 21 H Respiratory Effort Blood Pressure 111/79 Blood Pressure Mean 89 Pulse Ox 98 Oxygen Delivery Method Room Air Positive well nourished and well developed General Appearance ED: well developed HEENT Reports normocephalic and head/scalp atraumatic Eyes PERRL and EOMs intact bilaterally Neck supple Chest Wall inspection of chest normal and palpation of chest normal Resp normal respiratory effort and clear to auscultation bilaterally Cardio regular rate and regular rhythm GI non-tender Palpation: soft Extremity normal to inspection Neuro oriented x3 and no sensory deficits noted Sensorium / Orientation: alert Motor Exam: strength 5/5 throughout Psych mental status grossly normal Skin no rashes or lesions noted MDM MDM MDM Narrative Medical decision making narrative: Patient does have a history of asthma, however her lung sounds are clear at this time. In light of this with her worsening shortness of breath work-up will be pursued to include lab work to evaluate cardiac function and any evidence of potential PE. Chest x-ray will be obtained to evaluate for infiltrate. EKG obtained to evaluate for cardiac arrhythmia/ischemia. History & Record Review Discussion w/independent historian: Patient Lab Data Attestation: I reviewed the patient's lab results. Labs: Laboratory Results - last 24 hr 07/20/23 14:55 WBC 9.0 RBC 3.84 L Hgb 11.3 L Hct 34.7 L MCV 90.4 MCH 29.4 MCHC 32.6 RDW Std Deviation 42.2 RDW Coeff of Zach 12.8 Plt Count 288 MPV 9.3 Immature Gran % (Auto) 0.400 Neut % (Auto) 64.1 Lymph % (Auto) 23.4 [place] % (Auto) 11.9 H Eos % (Auto) 0.0 Baso % (Auto) 0.2 Absolute Neuts (auto) 5.8 Absolute Lymphs (auto) 2.11 Nucleated RBC % 0 D-Dimer Quant (PE/DVT) 0.81 H* Sodium 141 Potassium 3.4 L Chloride 110 H Carbon Dioxide 26.0 Anion Gap 5 BUN 13 Creatinine 0.70 Estim Creat Clear Calc 107.73 Est GFR (MDRD) Af Amer 124 Est GFR (MDRD) Non-Af 103 BUN/Creatinine Ratio 18.5 Glucose 100 Calcium 8.6 Troponin I High Sens 7 Serum , Qual NEGATIVE Radiography Chest X-Ray - ED: 2 View, Read by ED Physician, Normal, Heart, Lungs, Mediastinum and No Infiltrates Diagnostic Testing: Clinical Impression(s) from Imaging Studies Chest X-Ray 07/20/23 15:00 IMPRESSION: No acute cardiopulmonary process identified. Electronically Signed: Susan Espinal MD at 15:17 EST , Chest CTA 07/20/23 15:49 IMPRESSION: Negative CTA chest. Electronically Signed: Hernandez Norris MD at 16:58 EST , EKG Initial EKG: Attestation: I personally reviewed and interpreted this EKG as follows: Interpretation: Sinus Bradycardia (Sinus bradycardia 57 bpm. No acute ischemia.) Treatment and Re-Evaluation :: CBC was normal white count 9.0 with normal differential. Hemoglobin slightly low at 11.3. Chemistry studies unremarkable. test negative. Troponin is normal at 7. D-dimer is slightly elevated at 0.81. Two-view chest x-ray per my interpretation reveals no focal infiltrate. No acute abnormality. Radiology interpretation is reviewed and agrees. Given the patient's elevated D-dimer she was sent for CTA of the chest. This reveals no evidence of PE. No acute abnormality noted. With patient having 2 weeks of symptoms I will go ahead and cover her with a course of doxycycline. We did discuss that this may be a viral bronchitis but we will cover for bacterial as well. A respiratory viral panel has been sent but not resulted yet. I will call the patient if anything is positive on this to keep her informed. Discharge Plan Triage Chief Complaint: Shortness of Breath ED Provider: Valerie Correa Dx/Rx/DC Orders Clinical Impression: Bronchitis Instructions: Acute Bronchitis Prescriptions: New doxycycline monohydrate 100 mg capsule 100 mg PO BID Qty: 20 0RF No Action bupropion HCl [Wellbutrin XL] 150 mg tablet extended release 24 hr 150 mg PO QAM norgestimate-ethinyl estradiol [Sprintec (28)] 0.25-35 mg-mcg tablet 1 tab PO DAILY Qty: 84 4RF Primary Care Provider: Alejo Sands NP Referrals: Alejo Sands NP, [facility]IC-[facility] [Primary Care Provider] - 1-2 Weeks Disposition Disposition: Home, Self Care
--- NOTE | 2023-07-20 15:00 | RAD_ITS ---
HISTORY: SOB. TECHNIQUE: XR Chest 2 Views. COMPARISON: 07/14/2021. FINDINGS: CARDIOMEDIASTINAL BORDERS: Cardiac silhouette within normal limits in size. Mediastinal contour unremarkable. LUNGS: Radiographically clear. PLEURA: No pleural effusion or pneumothorax seen. OSSEOUS STRUCTURES: Unremarkable. RAD/Chest PA and Lateral IMPRESSION: No acute cardiopulmonary process identified. Electronically Signed: Susan Espinal MD at 15:17 EST ,
[2023-07-20 15:11] LABS: Absolute Lymphocyte Count 2.11 X10^3/uL (0.83-4.51); Absolute Neutrophil Count 5.8 X10^3/uL (2.0-7.7); Basophil# 0.02 X10^3/uL; Basophil% 0.2 % (0-1); Hematocrit 34.7 % (37-47); Hemoglobin 11.3 g/dL (12.0-15.0); Lymphocyte # 2.11 X10^3/ul (0.83-4.51); Lymphocyte % 23.4 % (19-41); Mean Corp Hgb Conc 32.6 g/dL (32-36); Mean Corpuscular Hgb 29.4 pg (27.0-32.0); Mean Corpuscular Volume 90.4 fL (81-99); Mean Platelet Vol. 9.3 fl (6.2-12.0); Monocyte# 1.07 X10^3/uL; Monocyte% 11.9 % (0-10); NRBC Flagged by Analyzer 0 % (0-5); Neutrophil # 5.78 X10^3/uL (2.7-7.7); Neutrophil % 64.1 % (47-70); Platelet Count 288 K/mm3 (150-450); RBC Distribution Width CV 12.8 % (11.6-14.6); RBC Distribution Width SD 42.2 fl (35.1-43.9); Red Blood Count 3.84 M/mm3 (4.2-5.4)
[2023-07-20 15:23] LABS: Internal QC Validated? YES +Cl - CLEAR BKGD; Pregnancy, Serum, hCG Quali. NEGATIVE Negative; Record Kit Lot#, Serum Preg. 667200
[2023-07-20 15:31] LABS: Anion Gap 5 (5-15); BUN 13 mg/dL (7-18); BUN/Creat Ratio 18.5 RATIO (10-20); Calcium,Total 8.6 mg/dL (8.5-10.1); Chloride 110 mmol/L (98-107); EST Glomerular Filtration Rate 103 mL/min (>60); Est Glom Filt Rate - Afr Amer 124 mL/min (>60); Estimated Creatinine Clearance 107.73 ml/min; Glucose 100 mg/dL (74-106); Potassium 3.4 mmol/L (3.5-5.1); Sodium Level 141 mmol/L (136-145); Troponin-I HS 7 pg/mL (3.0-54.0)
[2023-07-20 15:35] LABS: D-Dimer Quantitative (DVT/PE) 0.81 FEU/ug/m (0.27-0.49)
--- NOTE | 2023-07-20 15:49 | CT_ITS ---
EXAM: CT ANGIOGRAPHY CHEST WITHOUT AND WITH INTRAVENOUS CONTRAST CLINICAL INDICATION: sob, cough, elevated d-dimer TECHNIQUE: Helically acquired angiography images were obtained of the chest without and with intravenous contrast. This CT exam was performed using one or more of the following dose reduction techniques: automated exposure control, adjustment of the mA and/or kV according to patient size, and/or use of iterative reconstruction technique. MIP reconstructed images were created and reviewed. CONTRAST: IV 100mL [id number] COMPARISON: 07/15/2021 FINDINGS: PULMONARY ARTERIES: Unremarkable. Normal in caliber. No evidence of pulmonary embolism. AORTA: Unremarkable. Normal in caliber. No evidence of dissection. GREAT VESSELS OF AORTIC ARCH: Unremarkable. Normal in caliber. No evidence of dissection. LUNGS AND PLEURAL SPACES: Unremarkable. No mass. No consolidation or edema. No pleural effusion or thickening. No pneumothorax. HEART: Unremarkable. Heart size is normal. No pericardial effusion. No significant coronary artery calcifications. MEDIASTINUM: Unremarkable. No mediastinal or hilar adenopathy. Esophagus is unremarkable. No hiatal hernia. THYROID: Unremarkable. No thyroid lesions. BONES/JOINTS: Unremarkable. No suspicious lytic or blastic abnormality. CT/CTA Chest W/WO Contrast IMPRESSION: Negative CTA chest. Electronically Signed: Hernandez Norris MD at 16:58 EST ,
[2023-07-20 16:01] VITALS: BP 116/89; PULSE 73; RESP 19; O2SAT 98
[2023-07-20 17:57] VITALS: BP 111/79; PULSE 61; RESP 21; O2SAT 98
[2023-07-20] MEDS: Doxycycline 100 MG CAPSULE PO (19:17)
[2023-07-20 19:24] VITALS: BP 107/72; PULSE 59; RESP 15; O2SAT 98
== END 2023-07-20 19:25 | disposition home or self-care (01) ==
PROVIDERS: Emergency Provider Emergency Medicine; PCP Nurse Practitioner Family; Visit Provider Emergency Medicine
DX: J40 Bronchitis, not specified as acute or chronic (principal)
CPT/HCPCS: 71046; 71275; 80048; 84484; 84703; 85025; 85379; 87633; 93005; 99284; Q9967; A4216

== ENCOUNTER → 2024-07-31 | Outpatient (CLI) | payer MEDICAID, SELFPAY ==
--- NOTE | 2024-07-31 07:24 | US_ITS ---
STUDY: FIRST TRIMESTER OBSTETRICAL ULTRASOUND REASON FOR EXAM: Female, 34 years old spotting, midline pelvic pain LMP: 06/14/2024 TECHNIQUE: Transvaginal TECHNICAL QUALITY: Adequate. PRIOR ULTRASOUND: None. CT scan from 02/27/2021 FINDINGS: There is no demonstrated intrauterine or extrauterine gestational sac. The uterus measures 10.4 x 6.4 x 5.7 centimeters. There is no demonstrated uterine fibroid. The cervix is closed. The endometrium is heterogeneous with multiple subcentimeter cysts. The right ovary measures 3.4 x 2.6 x 2.5 cm. There is a complex 2.4 cm likely hemorrhagic cyst. The left ovary measures 2.1 x 1.5 x 1.1 cm. There is no left ovarian cyst. There is no visualized left adnexal mass or complex lesion. There is no fluid in the cul de sac. There are dilated suspicious vessels in the pelvis suggesting pelvic congestion. US/Transvaginal w/Preg US IMPRESSION: No sonographic evidence of intrauterine or extrauterine gestation. Heterogeneous endometrium measuring 1.5 cm with tiny simple cysts. Short-term sonographic follow-up recommended to assure resolution Complex, likely hemorrhagic 2.4 cm right adnexal cyst. Persistent dilated serpiginous vessels in the pelvis suggesting pelvic congestion. Electronically Signed: Jeremías Urbano MD at 9:01 EST ,
[2024-07-31 08:57] LABS: hCG Titer Quant., Serum 129 mIU/mL (1-3)
== END | disposition home or self-care (01) ==
PROVIDERS: PCP Nurse Practitioner Family; Referring Provider Obstetrics & Gynecology; Visit Provider Obstetrics & Gynecology
DX: O26.859 Spotting complicating pregnancy, unspecified trimester (principal); O00.101 Right tubal pregnancy without intrauterine pregnancy; Z3A.00 Weeks of gestation of pregnancy not specified
CPT/HCPCS: 36415; 76817; 84702

== ENCOUNTER → 2024-08-02 | Outpatient (CLI) | payer MEDICAID, SELFPAY ==
[2024-08-02 08:50] LABS: hCG Titer Quant., Serum 278 mIU/mL (1-3)
== END | disposition home or self-care (01) ==
LOC: LAB 07:54
PROVIDERS: PCP Nurse Practitioner Family; Referring Provider Obstetrics & Gynecology; Visit Provider Obstetrics & Gynecology
DX: O26.859 Spotting complicating pregnancy, unspecified trimester (principal); R10.2 Pelvic and perineal pain; Z3A.00 Weeks of gestation of pregnancy not specified
CPT/HCPCS: 36415; 84702

== ENCOUNTER → 2024-08-25 | Outpatient (CLI) | payer MEDICAID, SELFPAY ==
--- NOTE | 2024-08-25 14:22 | US_ITS ---
STUDY: FIRST TRIMESTER OBSTETRICAL ULTRASOUND REASON FOR EXAM: Female, 34 years old Dating US LMP: 06/16/2024 TECHNIQUE: Transvaginal TECHNICAL QUALITY: Adequate. PRIOR ULTRASOUND: None. FINDINGS: There is visualization of a single gestational sac in a normal intrauterine position. The mean sac diameter (MSD) measures 34 mm, indicating an estimated gestational age (EGA) of 8 weeks, 4 days. The gestational sac shape is within normal limits. There is a visualized yolk sac. The yolk sac measures 2 mm. The placenta is non-visualized. There is visualization of a live embryo. The crown-rump length (CRL) measures 16 mm, indicating an estimated gestational age (EGA) of 7 weeks, 6 days. There is demonstrated cardiac activity with a heart rate of 154 bpm. The estimated gestation age (EGA) by LMP is 10 weeks, 0 days. The estimated date of delivery (TERESO) by LMP is 03/23/2025. The estimated gestation age (EGA) by US is 8 weeks, 2 days. The estimated date of delivery (TERESO) by US is 04/04/2025. The uterus measures 13.0 x 6.3 x 7.5 cm. There is no demonstrated uterine fibroid. The cervix is closed. The right ovary measures 3.4 x 2.6 x 2.4 cm. There is no right ovarian cyst. There is no visualized right adnexal mass or complex lesion. The left ovary measures 2.4 x 1.4 x 2.2 cm. There is no left ovarian cyst. There is no visualized left adnexal mass or complex lesion. There is no fluid in the cul de sac. US/Transvaginal w/Preg US IMPRESSION: Living intrauterine of 8 weeks 2 days as described above. Electronically Signed: Alejo Kim MD at 12:53 EST ,
== END | disposition home or self-care (01) ==
PROVIDERS: PCP Nurse Practitioner Family; Referring Provider Obstetrics & Gynecology; Visit Provider Obstetrics & Gynecology
DX: N91.2 Amenorrhea, unspecified (principal)
CPT/HCPCS: 76817

== ENCOUNTER → 2024-08-31 | Outpatient (CLI) | payer MEDICAID, SELFPAY ==
[2024-09-03 16:08] LABS: Chlamydia By Nucleic Acid AMP Negative (Negative); Gonococcus By Nucleic Acid AMP Negative (Negative)
== END | disposition home or self-care (01) ==
LOC: LABSPEC 15:38
PROVIDERS: PCP Nurse Practitioner Family; Referring Provider Advanced Practice Midwife; Visit Provider Advanced Practice Midwife
DX: Z34.90 Encounter for supervision of normal pregnancy, unspecified, unspecified trimester (principal)
CPT/HCPCS: 87086; 87491; 87591

== ENCOUNTER → 2024-09-07 | Outpatient (CLI) | payer MEDICAID, SELFPAY ==
[2024-09-07 12:17] LABS: Absolute Lymphocyte Count 1.28 X10^3/uL (0.83-4.51); Absolute Neutrophil Count 3.5 X10^3/uL (2.0-7.7); Basophil# 0.03 X10^3/uL; Basophil% 0.5 % (0-1); Eosinophil# 0.21 X10^3/uL; Eosinophils% 3.8 % (0-5); Hematocrit 32.4 % (37-47); Hemoglobin 10.5 g/dL (12.0-15.0); Lymphocyte # 1.28 X10^3/ul (0.83-4.51); Lymphocyte % 23.2 % (19-41); Mean Corp Hgb Conc 32.4 g/dL (32-36); Mean Corpuscular Volume 89.5 fL (81-99); Mean Platelet Vol. 9.8 fl (6.2-12.0); Monocyte# 0.49 X10^3/uL; Monocyte% 8.9 % (0-10); NRBC Flagged by Analyzer 0 % (0-5); Neutrophil # 3.48 X10^3/uL (2.7-7.7); Neutrophil % 63.1 % (47-70); Platelet Count 214 K/mm3 (150-450); RBC Distribution Width CV 13.2 % (11.6-14.6); RBC Distribution Width SD 42.9 fl (35.1-43.9); Red Blood Count 3.62 M/mm3 (4.2-5.4); White Blood Count 5.5 K/mm3 (4.4-11.0)
[2024-09-07 13:17] LABS: HIV - WCH Non-Reactive (Nonreactive); Hepatitis B Surface Antigen Non-Reactive (Nonreactive); Hepatitis C Antibody Non-Reactive (Nonreactive); Rubella IgG Reactive (Nonreactive); Syphilis Antibodies Non-reactive
== END | disposition home or self-care (01) ==
LOC: BWCLAB 10:13
PROVIDERS: PCP Nurse Practitioner Family; Referring Provider Advanced Practice Midwife; Visit Provider Advanced Practice Midwife
DX: Z34.90 Encounter for supervision of normal pregnancy, unspecified, unspecified trimester (principal)
CPT/HCPCS: 36415; 85025; 86703; 86762; 86780; 86803; 86850; 86900; 86901; 87340

== ENCOUNTER 2024-09-30 08:35 | Emergency (ER) | payer MEDICAID, SELFPAY ==
[2024-09-30 08:36] VITALS: BP 116/64; PULSE 86; RESP 16; TEMP 36.6; O2SAT 100; BMI 22.1
--- NOTE | 2024-09-30 08:45 | US_ITS ---
HISTORY: 14wks , bleeding. LMP 07/01/2024. TECHNIQUE: Transabdominal and transvaginal pelvic ultrasound was performed with davis scale and color Doppler evaluation. 65 images. COMPARISON: 08/25/2024. FINDINGS: UTERUS: 14.2 x 8.7 x 7.6 cm. Cervix closed. ENDOMETRIAL THICKNESS: 2.6 cm, with mild heterogeneity and vascularity. Intrauterine no longer identified. RIGHT OVARY: 2.2 x 3 x 3.5 cm. 1.3 x 2.1 x 2.2 cm cyst. LEFT OVARY: 1.8 x 2.4 x 3.1 cm. No adnexal masses. FREE FLUID: None. US/Init OB < 14Wks US IMPRESSION: Intrauterine no longer visualized, concerning for spontaneous miscarriage. Thickening of the endometrial complex with mild heterogeneity and vascularity, concerning for retained products of conception and hemorrhage. Small right ovarian cyst. Electronically Signed: Susan Espinal MD at 10:28 EST ,
--- NOTE | 2024-09-30 08:49 | EDS_ITS ---
HPI HPI - Female History of Present Illness Chief Complaint: Vag Bld, Preg Detail of Chief Complaint: Vaginal bleeding with Informant: patient Narrative Narrative: Patient presents to the emergency department with complaint of vaginal bleeding that started this morning. Patient states that she started having some lower abdominal cramping around 3 AM. Patient then states that she passed some clear fluid initially followed by some tissue and then started having vaginal bleeding. She is going through about 1 pad per 2 hours. Denies significant discomfort at this time. Patient was 14 weeks . She is G6, P2 with prior miscarriage and prior ectopic . She does not know her blood type. She talked to her DATA COLLECTION TECHNICIAN's office and was told to come in and make sure she passed everything. No other significant medical history. [facility] Medical History Ectopic Chronic pelvic pain in female Spotting affecting Early stage of Pelvic pain Contraceptive management Abdominal pain in female Post-op pain Pancreatitis Asthma Missed ab (~08/2019) Gallstone pancreatitis No pertinent past medical history Home Medications ?Medication ?Instructions ?Recorded ?Last Taken ?Type docosahexaenoic acid 200 mg mg PO 08/28/24 Unknown History capsule ( DHA) ondansetron 4 mg disintegrating 4 mg PO Q8H PRN nausea and 09/23/24 Unknown Rx tablet vomiting #30 tabs oxycodone-acetaminophen 5 mg-325 1 tab PO Q6H PRN PRN Pain 3 days 09/30/24 Unknown Rx mg tablet #12 TABLETS Allergy/AdvReac Type Severity Reaction Status Date / Time Penicillins Allergy Hives Verified 09/30/24 08:38 Family History Mother Asthma Surgical History S/P laparoscopy H/O dilation and curettage Hx of cholecystectomy S/P tonsillectomy Social History adopted: No household members: significant other and children number of children: 2 current occupational status: employed 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) current occupational exposures/hazards: No pets and animals: Yes (Fiance taking care of litter box) pets and animals: cat(s) and dog(s) history of recent travel: No sexually active: Yes Smoking Status: Never smoker alcohol intake: current alcohol intake frequency: holidays/special occasions only details: Not while substance use type: does not use well-balanced diet: daily or most days caffeine: Yes Type: coffee eating out: rarely or never during the past year weight has: remained stable what type of physical activity do you participate in: aerobics frequency: 5-6 times per week duration: 30-45 minutes/day channing/evangelical: None seatbelt use: always do you feel safe at home: Yes additional social history: Fiance: Bridger - Maintenance at [employer] ROS ED Review of Systems ROS Unobtainable: other Constitutional Constitutional ED: Reports lethargy; Denies chills, fever(s), sweats or weight loss Eyes Eyes: Denies blurry vision, change in vision or diplopia ENT ENT ED: Denies rhinorrhea or sore throat Cardiovascular Cardiovascular: Denies chest pain, orthopnea or racing heartbeat Respiratory/Chest Respiratory/Chest: Denies cough, dyspnea, dyspnea on exertion, orthopnea or sputum Gastrointestinal Gastrointestinal: Denies abdominal pain, diarrhea, nausea or vomiting Genitourinary Genitourinary ED: Reports other Details: Vaginal bleeding, abdominal pain ; Denies dysuria, hematuria or urinary frequency Musculoskeletal Musculoskeletal: Denies arthralgias, back pain, myalgias or neck pain Integumentary Denies abscess, Abrasions or rash Neurologic Neurologic: Denies headache(s) or weakness Psychiatric Psychiatric: Denies anxiety, depression or suicidal thoughts Endocrine Endocrinology: Denies polydipsia, polyphagia or polyuria Hematologic/Lymphatic Hematologic/Lymphatic: Denies easy bleeding, easy bruising or lymphadenopathy Allergic/Immunologic Allergic/Immunologic ED: Denies mouth swelling, tongue swelling or urticaria EXAM Physical Exam Const Vital Signs: 09/30/24 08:36 Temperature 97.8 F Temperature Source Oral Pulse Rate 86 Respiratory Rate 16 Blood Pressure 116/64 Blood Pressure Mean 81 Pulse Ox 100 Positive well nourished and well developed General Appearance ED: well developed and NAD HEENT Reports TM's clear and moist mucous membranes normocephalic and atraumatic; Negative for trauma or tenderness Tympanic Membrane ED: Yes TM's clear Eyes PERRL and EOMs intact bilaterally General Eye ED: Negative for pale conjunctiva or scleral icterus Neck no lymphadenopathy, supple and no JVD General: Negative for tenderness Chest Wall inspection of chest normal and palpation of chest normal Chest: Negative for tenderness Resp normal respiratory effort and clear to auscultation bilaterally Effort and Inspection: Negative for respiratory distress or pain with movement Auscultation: Negative for rhonchi, wheezes or diminished lung sounds Cardio regular rate, regular rhythm, S1 normal heart sound, S2 normal heart sound and no murmurs Peripheral Pulses: pulses 2+ throughout GI normal to inspection, nondistended, normoactive bowel sounds, soft to palpation, non-tender, non-distended and no masses Back/Spine no CVA tenderness and no thoracic nor lumbar tenderness Extremity normal to inspection General Extremety ED: Negative for edema General Extremity: Negative for edema Neuro oriented x3, CN's II-XII intact bilaterally, no sensory deficits noted and gait normal Sensorium / Orientation: awake, alert, oriented to person, oriented to place and oriented to time Motor Exam: strength 5/5 throughout and strength abnormal Psych mental status grossly normal Skin no rashes or lesions noted and no wounds MDM MDM MDM Narrative Medical decision making narrative: Patient presents with lower abdomen pain and cramping and concern for miscarriage as she is 14 weeks . Clinically looks well. IV line esta blished. CBC with differential was unremarkable. Hemoglobin over 12. Quantitative hCG was 40,000. Patient had a ultrasound of the pelvis which showed no evidence of intrauterine with some possible retained products of conception within the uterus. Discussed case with DATA COLLECTION TECHNICIAN on-call Dr. Lee who recommended starting patient on Cytotec and prescription for Percocet for home and outpatient follow-up this week with their office. Patient advised to return if worsening pain, persistent bleeding, or condition should worsen anyway. Lab Data Attestation: I reviewed the patient's lab results. Labs: Laboratory Results - last 24 hr 09/30/24 08:49 WBC 10.7 RBC 4.09 L Hgb 12.3 Hct 36.2 L MCV 88.5 MCH 30.1 MCHC 34.0 RDW Std Deviation 43.0 RDW Coeff of Zach 13.2 Plt Count 217 MPV 9.3 Immature Gran % (Auto) 0.700 Neut % (Auto) 74.1 H Lymph % (Auto) 15.2 L [place] % (Auto) 6.9 Eos % (Auto) 2.5 Baso % (Auto) 0.6 Absolute Neuts (auto) 8.0 H Absolute Lymphs (auto) 1.63 Nucleated RBC % 0 HCG, Quant 64358 H Blood Type A POSITIVE Radiography Diagnostic Testing: Clinical Impression(s) from Imaging Studies Obstetrics Ultrasound 09/30/24 08:45 IMPRESSION: Intrauterine no longer visualized, concerning for spontaneous miscarriage. Thickening of the endometrial complex with mild heterogeneity and vascularity, concerning for retained products of conception and hemorrhage. Small right ovarian cyst. Electronically Signed: Susan Espinal MD at 10:28 EST , Discharge Plan Triage Chief Complaint: Vag Bld, Preg ED Provider: Guero Briceño Dx/Rx/DC Orders Clinical Impression: Spontaneous Instructions: ED Miscarriage Spontaneous Prescriptions: New oxycodone-acetaminophen 5-325 mg tablet 1 tab PO Q6H PRN PRN (Reason: Pain) 3 Days Qty: 12 0RF No Action DHA 200 mg capsule PO ondansetron 4 mg tablet,disintegrating 4 mg PO Q8H PRN (Reason: nausea and vomiting) Qty: 30 4RF Primary Care Provider: Alejo Sands NP Referrals: Valerie Garcia DO [Med Staff - Active Staff] - 1-2 Days if not improving Alejo Sands SMEARER, SMEARER-C [Primary Care Provider] - Print Language: Zambian Disposition Disposition: Home, Self Care
[2024-09-30 09:05] LABS: Absolute Lymphocyte Count 1.63 X10^3/uL (0.83-4.51); Basophil# 0.06 X10^3/uL; Basophil% 0.6 % (0-1); Eosinophil# 0.27 X10^3/uL; Eosinophils% 2.5 % (0-5); Hematocrit 36.2 % (37-47); Hemoglobin 12.3 g/dL (12.0-15.0); Lymphocyte # 1.63 X10^3/ul (0.83-4.51); Lymphocyte % 15.2 % (19-41); Mean Corpuscular Hgb 30.1 pg (27.0-32.0); Mean Corpuscular Volume 88.5 fL (81-99); Mean Platelet Vol. 9.3 fl (6.2-12.0); Monocyte# 0.74 X10^3/uL; Monocyte% 6.9 % (0-10); NRBC Flagged by Analyzer 0 % (0-5); Neutrophil # 7.97 X10^3/uL (2.7-7.7); Neutrophil % 74.1 % (47-70); Platelet Count 217 K/mm3 (150-450); RBC Distribution Width CV 13.2 % (11.6-14.6); Red Blood Count 4.09 M/mm3 (4.2-5.4); White Blood Count 10.7 K/mm3 (4.4-11.0)
[2024-09-30 09:37] LABS: hCG Titer Quant., Serum 41505 mIU/mL (1-3)
[2024-09-30] MEDS: miSOPROStol 200 MCG Tablet 400 MCG PO (10:55)
[2024-09-30 10:59] VITALS: BP 122/74; PULSE 78; RESP 20; TEMP 36.6; O2SAT 97
== END 2024-09-30 10:59 | disposition home or self-care (01) ==
PROVIDERS: Emergency Provider Emergency Medicine; PCP Nurse Practitioner Family; Visit Provider Emergency Medicine
DX: O03.9 Complete or unspecified spontaneous abortion without complication (principal); Z87.59 Personal history of other complications of pregnancy, childbirth and the puerperium; Z88.0 Allergy status to penicillin
CPT/HCPCS: 76801; 84702; 85025; 86900; 86901; 99282; A4216

== ENCOUNTER → 2024-10-02 | Outpatient (CLI) | payer MEDICAID, SELFPAY ==
--- NOTE | 2024-10-02 12:23 | US_ITS ---
INDICATION: SAB EXAMINATION: Ultrasound US Pelvis Non OB Limited With Transvaginal Imaging TECHNIQUE: Transabdominal and transvaginal (for optimal evaluation of the adnexa) pelvic ultrasound was performed. Grayscale, spectral waveform, and color flow Doppler evaluation of the adnexa. COMPARISON: 09/30/2024. FINDINGS: UTERUS: Anteverted. The uterus measures 13.7 cm in length.. There is no uterine mass. The endometrial stripe measures 18 mm in AP diameter and is heterogeneous. No significant internal vascularity. RIGHT OVARY: Measures 3.3 x 2.8 x 2 cm. Non-enlarged, normal echogenicity. There is normal arterial inflow and venous outflow present in the right ovary. LEFT OVARY: Not visualized. FREE FLUID: None. US/Pelvic w/ Transvaginal IMPRESSION: Findings consistent with ongoing . Electronically Signed: Shiva Meek MD at 11:57 EST ,
== END | disposition home or self-care (01) ==
LOC: OPUS 12:23
PROVIDERS: PCP Nurse Practitioner Family; Referring Provider Obstetrics & Gynecology; Visit Provider Obstetrics & Gynecology
DX: O03.9 Complete or unspecified spontaneous abortion without complication (principal)
CPT/HCPCS: 76830; 76856

== ENCOUNTER → 2024-10-31 | Outpatient (CLI) | payer MEDICAID, SELFPAY ==
--- NOTE | 2024-10-31 08:53 | US_ITS ---
PROCEDURE: PELVIC W/ TRANSVAGINAL REASON FOR EXAM: Ultrasound after Cytotec/spontaneous TECHNIQUE: Transabdominal pelvic ultrasound COMPARISON: 10/02/2024 FINDINGS: Measurements: Uterus: 12.0 x 8.7 x 6.2 cm with a volume of 339.52 mL Endometrial Thickness: 17 mm Right Ovary: 4.6 x 2.3 x 2.5 cm with a volume of 14.2 mL. Left Ovary: 4.95 x 3.6 x 3.97 cm with a volume of 37.31 mL. Uterus: Normal size, myometrial echotexture, and contour. Endometrium: Heterogeneous. Contains vascularity. Right ovary: Contains color flow Left ovary: Contains color flow and a hypoechoic focus measuring 3.0 x 3.0 x 2.5 cm. No large pelvic mass identified. US/Pelvic w/ Transvaginal IMPRESSION: 1. Hypervascular and heterogeneous endometrium concerning for retained product s of conception. 2. Left ovarian cyst. Reading Location: [facility]
[2024-10-31 10:32] LABS: hCG Titer Quant., Serum 298 mIU/mL (1-3)
== END | disposition home or self-care (01) ==
PROVIDERS: PCP Nurse Practitioner Family; Referring Provider Obstetrics & Gynecology; Visit Provider Obstetrics & Gynecology
DX: O03.9 Complete or unspecified spontaneous abortion without complication (principal)
CPT/HCPCS: 36415; 76830; 76856; 84702

== ENCOUNTER 2024-11-03 07:24 | Day surgery (SDC) | payer MEDICAID, SELFPAY ==
[2024-11-03] VITALS (11 sets, daily range): BP systolic 87–104; BP diastolic 48–62; PULSE 70–82; RESP 16–20; TEMP 36.6–37.2; O2SAT 97–100; BMI 19.6
[2024-11-03] MEDS: Doxycycline 100 MG CAPSULE PO (08:02)
[2024-11-03] MEDS: Lidocaine 1% (20 ml mdv) 20 ML Vial (08:17)
[2024-11-03 08:23] LABS: ALB/GLOB Ratio 1.1 RATIO (0.9-2.4); AST(SGOT) 15 U/L (15-37); Alanine Aminotransfer ALT/SGPT 20 U/L (13-56); Albumin, Serum 3.6 g/dL (3.2-5.0); Alkaline Phosphatase 40 U/L (45-117); Anion Gap 5 (5-15); BUN 9 mg/dL (7-18); BUN/Creat Ratio 13.3 RATIO (10-20); Calcium,Total 8.7 mg/dL (8.5-10.1); Chloride 108 mmol/L (98-107); Creatinine, Serum 0.68 mg/dL (0.55-1.02); EST Glomerular Filtration Rate 106 mL/min (>60); Est Glom Filt Rate - Afr Amer 128 mL/min (>60); Estimated Creatinine Clearance 105.89 ml/min; Globulin 3.2 g/dL (2.2-4.2); Glucose 85 mg/dL (74-106); Potassium 3.7 mmol/L (3.5-5.1); Protein, Total 6.8 g/dL (6.4-8.2); Sodium Level 139 mmol/L (136-145)
--- NOTE | 2024-11-03 08:30 | PCM.PRE.AN2 ---
ASA Classification* ASA Classification ASA Classification: 2 Assessment & Plan Anesthesia* Anesthesia Assessment Anesthesia Assessment: Discussed sedation and/or anesthesia options, risks, benefits, and alternatives with patient/parents/legal guardian/POA. Questions invited. The patient/parents/legal guardian/POA seems to understand and agrees to proceed with anesthesia plan. Reviewed the physical assessment, medical history, allergy history and patient home medications list prior to surgery/procedure/anesthetic and documented any changes. Performed airway and anesthesia risk assessments. Anesthesia Type Anesthesia Type: MAC History Source History Obtained from:: Patient and Chart Anesthesia Focused Assessment* Temperature: 99.0 F Pulse Rate: 76 Blood Pressure: 103/55 Respiratory Rate: 16 Pulse Ox: 99 Oxygen Delivery Method: Room Air Airway Assessment Mouth opens: >3 cm Mallampati Score: I Teeth Condition: Intact Neck Range of motion (ROM): Full ROM Focused Labs Anesthesia Preop lab: CBC WBC 10.7 K/mm3 (4.4-11.0) 09/30/24 08:49 09/30/24 RBC 4.09 M/mm3 (4.2-5.4) L 09/30/24 08:49 09/30/24 Hgb 12.3 g/dL (12.0-15.0) 09/30/24 08:49 09/30/24 Hct 36.2 % (37-47) L 09/30/24 08:49 09/30/24 Plt Count 217 K/mm3 (150-450) 09/30/24 08:49 09/30/24 CHEMISTRY Potassium 3.7 mmol/L (3.5-5.1) 11/03/24 07:50 11/03/24 Sodium 139 mmol/L (136-145) 11/03/24 07:50 11/03/24 BUN 9 mg/dL (7-18) 11/03/24 07:50 11/03/24 Creatinine 0.68 mg/dL (0.55-1.02) 11/03/24 07:50 11/03/24 Glucose 85 mg/dL (74-106) 11/03/24 07:50 11/03/24 TSH 1.58 uIU/mL (0.358-3.74) 07/31/21 13:20 07/31/21 COAG HCG, Quant 298 mIU/mL (1-3) H 10/31/24 08:52 10/31/24 Urine Test Negative Negative 02/27/21 03:15 02/27/21 Pre-Assessment Diagnosis/Proposed Procedure Planned Operative Procedure(s): SUCTION D&C Anesthesia History Anesthesia History - twisting frame fixer: Anesthesia History - twisting frame fixer Hx Hospitalization No 11/02/24 11:01 Any Problems With Anesthesia No 11/02/24 11:01 Cholinesterase deficiency No 11/02/24 11:01 You/Your Family Experience No 11/02/24 11:01 fever (hyperthermia) with Relationship Recent Exposure to Contagious No 11/03/24 07:53 Disease Does patient have nerve No 11/02/24 11:01 stimulator Patient instructed to have device shut off --Does patient have Pacemaker No 11/03/24 07:53 or ICD? When Was Last Pacemaker Check QUESTION #4 FULL TEXT: You/Your Family Experience fever (hyperthermia) with Anesthesia Any additional information?: No Last Oral Intake Last Oral intake: Last Oral Intake NPO since 00:00 11/03/24 07:53 Meds taken in AM with sips of water? Meds patient instructed to take am of surgery Any additional information?: No PONV PONV - twisting frame fixer: PONV - twisting frame fixer Female Yes 11/02/24 11:01 HX of Motion Sickness No 11/02/24 11:01 HX of N/V After Surgery No 11/02/24 11:01 Non-Smoker Yes 11/02/24 11:01 Duration of Surgery greater No 11/02/24 11:01 than 60 minutes Number of Risk Factors 2 11/02/24 11:01 PONV Score Moderate Risk 11/02/24 11:01 Any additional information?: No Height & Weight Height & Weight: Anesthesia: Height & Weight Height 5 ft 7 in 11/03/24 07:53 Weight: 57 kg 11/03/24 07:53 Body Mass Index (BMI) 19.6 11/03/24 07:53 Respiratory Assessment Respiratory Assessment - twisting frame fixer: Respiratory Tract Infection Hx - twisting frame fixer Hx Respiratory Tract Infection No 11/02/24 11:01 Any additional information?: No STOP Sleep Apnea STOP Sleep Apnea - twisting frame fixer: STOP Sleep Apnea - twisting frame fixer Hx Hypertension No 11/02/24 11:01 Hx Sleep Apnea No 11/02/24 11:01 CPAP No 05/04/21 04:13 BIPAP Do you snore loudly (louder No 11/02/24 11:01 than talking or can be heard Do you often feel tired/ No 11/02/24 11:01 fatigued/ sleepy during daytime? Has anyone observed you stop No 11/02/24 11:01 breathing during sleep? STOP Results Negative 11/02/24 11:01 QUESTION #5 FULL TEXT : Do you snore loudly (louder than talking or can be heard through closed doors)? Any additional information?: No Tobacco Use History Tobacco Use History - twisting frame fixer: Tobacco Use History - twisting frame fixer Tobacco Use Smoking Status Never smoker 11/02/24 11:01 Hx Tobacco Use No 11/02/24 11:01 Years Smoking Packs Smoked per Day Smoking Cessation Date was within the last 15 years Hx Smoking Cessation Date Hx Smoking Cessation Counseling Any additional information?: No Hematologic Medial History Hematologic Hx - twisting frame fixer: Hematologic Medical Hx - receptionist doctor's office Hx of Blood Transfusion Yes 11/02/24 11:01 Hx of Transfusion in last 3 No 11/02/24 11:01 Months Date of Last Transfusion (if within last 3 months) Ever experience any problems No 11/02/24 11:01 with transfusion(s)? Specify any problems Hx of Preganancy in last 3 Yes 11/02/24 11:01 Months Nurse Filling Out Transfusion DSCHRIBER 11/02/24 11:01 & Questions: Date: 11/02/24 11/02/24 11:01 Time: 11:02 11/02/24 11:01 Patient unable to answer at this time (ie. confused, unrespo Any additional information?: No /Reproduction History /Reproductive History - twisting frame fixer: /Reproductive Hx- twisting frame fixer Hx Now Yes 11/02/24 11:01 Gestational Age (in weeks): EDC: Hx Hx Para Hx Section SAB No 11/02/24 11:01 Any additional information?: Yes Hx Now: Yes (Patient states she had miscarriage on 09/30/24 @14 weeks EGA) Hx : 6 Hx Para: 2 Hx Section: No : No Active Medications Active Medications: Current Medications Generic Name Dose Route Start Last Admin Trade Name Freq PRN Reason Stop Dose Admin Doxycycline Monohydrate 100 mg 11/03/24 09:00 11/03/24 08:02 Doxycycline 100 Mg Capsule PO 11/03/24 09:01 100 mg PREOP ONE Administration [facility] Medical History (Updated 11/02/24 @ 11:06 by Sarah Maza) Low iron Non-smoker Spotting affecting Early stage of Pelvic pain Contraceptive management Pancreatitis Asthma Post-op pain Ectopic Abdominal pain in female Missed ab (~08/2019) Chronic pelvic pain in female Gallstone pancreatitis Home Medications ?Medication ?Instructions ?Recorded ?Last Taken ?Type docosahexaenoic acid 200 mg 200 mg PO DAILY 08/28/24 Unknown History capsule ( DHA) Allergy/AdvReac Type Severity Reaction Status Date / Time Penicillins Allergy Hives Verified 11/03/24 07:44 Family History Mother Asthma no significant family history Surgical History Hx of laparoscopy S/P laparoscopy H/O dilation and curettage Hx of cholecystectomy S/P tonsillectomy Social History adopted: No household members: significant other and children number of children: 2 current occupational status: employed 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) current occupational exposures/hazards: No pets and animals: Yes (Fiance taking care of litter box) pets and animals: cat(s) and dog(s) history of recent travel: No sexually active: Yes Smoking Status: Never smoker alcohol intake: current alcohol intake frequency: holidays/special occasions only details: Not while substance use type: does not use well-balanced diet: daily or most days caffeine: Yes Type: coffee eating out: rarely or never during the past year weight has: remained stable what type of physical activity do you participate in: aerobics frequency: 5-6 times per week duration: 30-45 minutes/day channing/congregational: None seatbelt use: always do you feel safe at home: Yes additional social history: Fiance: Bridger - Maintenance at [employer] Review of Systems (Anesthesia) ROS Narrative System reviewed and no additional complaints, except as documented. Review of Systems ROS Unobtainable: due to encephalopathy, due to endotracheal tube, due to mental condition, due to mental status and other Cardiovascular Cardiovascular: Denies chest pain, dyspnea, hypertension or palpitations Physical Exam Const alert, oriented x3 and average body habitus Orientation / Consciousness: awake HEENT dentition normal Neck full ROM General: normal visual inspection and trachea midline Resp normal respiratory effort and clear to auscultation bilaterally Auscultation: clear to auscultation bilaterally Cardio regular rate, regular rhythm and no murmurs Back/Spine normal ROM Extremity full ROM Skin Rashes: no rashes Neuro oriented x3 and moves all extremities
--- NOTE | 2024-11-03 09:00 | POC_PTH ---
PATIENT: FERNY GRANT [place] [facility] [place][id number] AGE/SX: 34/F ROOM: RE11/03/[address]: Dr. Valerie Garcia DO : 1990 BED: DIS: 11/03/2024 SPEC #: [id number] RECD: 11/03/24 10:21 STATUS: LILLY KAMALA #: [id number] COCO: 11/03/24 09:[address]: Valerie Garcia DEPT: SURGICAL PATHOLOGY RECD BY: Destinee Adams ENTERED: 11/03/24 11:55 SP TYPE: PROD CONC OTHR DR: Alejo Sands, LIFE SKILLS WORKER-Mitzy Tissues: Product of conception, NOS Procedures: Surgery Specimen Level IV HEADER OPERATION: Dilation and curettage, suction PRE-OP DIAGNOSIS: Spontaneous , retained products of conception TISSUE SUBMITTED: Products of conception MICROSCOPIC DIAGNOSIS Products of conception, dilation and curettage: [place], endometrium and immature chorionic villi and inflamed benign endometrial tissue (products of conception), clinically spontaneous and retained products of conception. INDU: 11/04/2024 MICROSCOPIC DESCRIPTION Slides are reviewed. GROSS DESCRIPTION Received in fixative is one container labeled with the patient's name and designated Products of conception. The specimen consists of multiple irregular fragments of pink soft tissue that in aggregate measure 6 x 5.5 x 1.5 cm. tissue is not identified. Product Mgr tissue is submitted in three cassettes. 11/03/2024 TC:5 CPT:63402
--- NOTE | 2024-11-03 09:23 | PCM.HP.STD ---
HPI - General HPI Narrative FERNY GRANT, is a 34 F who presents to [facility] for a suction D&C due to retained products of conception after miscarriage almost a month ago. She tried rounds of cytotec without complete resolution of the tissue still in her uterus. [facility] Medical History (Updated 11/03/24 @ 09:[address] Valerie Garcia, DO) Low iron Non-smoker Spotting affecting Early stage of Pelvic pain Contraceptive management Pancreatitis Asthma Post-op pain Ectopic Abdominal pain in female Missed ab (~08/2019) Chronic pelvic pain in female Gallstone pancreatitis Home Medications ?Medication ?Instructions ?Recorded ?Last Taken ?Type docosahexaenoic acid 200 mg 200 mg PO DAILY 08/28/24 Unknown History capsule ( DHA) Allergy/AdvReac Type Severity Reaction Status Date / Time Penicillins Allergy Hives Verified 11/03/24 07:44 Family History Mother Asthma Family History no significant family his Surgical History Hx of laparoscopy S/P laparoscopy H/O dilation and curettage Hx of cholecystectomy S/P tonsillectomy Social History adopted: No household members: significant other and children number of children: 2 current occupational status: employed 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[employer]) current occupational exposures/hazards: No pets and animals: Yes (Fiance taking care of litter box) pets and animals: cat(s) and dog(s) history of recent travel: No sexually active: Yes Smoking Status: Never smoker alcohol intake: current alcohol intake frequency: holidays/special occasions only details: Not while substance use type: does not use well-balanced diet: daily or most days caffeine: Yes Type: coffee eating out: rarely or never during the past year weight has: remained stable what type of physical activity do you participate in: aerobics frequency: 5-6 times per week duration: 30-45 minutes/day channing/muslim: None seatbelt use: always do you feel safe at home: Yes additional social history: Fiance: Bridger - Maintenance at [employer] Constitutional Constitutional: Denies change in weight, fatigue, fever(s), headache(s), poor appetite or weakness Eyes Eyes: Denies blurry vision, change in vision, seeing flashes or spots in vision ENT HEENT: Denies dizziness, headache(s), loss taste/smell or sore throat Cardiovascular Cardiovascular: Denies chest pain, dizziness, dyspnea, irregular heart rhythm, leg edema, palpitations, rapid heart rate or vomiting Respiratory/Chest Respiratory/Chest: Denies chest tightness, cough, dyspnea or breast pain Gastrointestinal Gastrointestinal: Denies abdominal pain, anorexia, constipation, cramping, diarrhea, hemorrhoids, vomiting or weight changes Genitourinary Genitourinary: Denies dysuria, flank pain, genital lesions, genital pain, urinary frequency or urinary urgency Musculoskeletal Musculoskeletal: Denies back pain, difficulty walking, joint pain, limited range of motion, muscle cramps or numbness Integumentary Integumentary: Denies lesions or unusual bruising Neurologic Neurologic: Denies abnormal movements, abnormal speech, dizziness, numbness, seizure-like activity or syncope Psychiatric Psychiatric: Denies anxiety, behavioral changes, change in appetite, change in libido, cognitive impairment, confusion, depression, difficulty concentrating, hallucinations or suicidal thoughts Endocrine Endocrinology: Denies excessive sweating, polydipsia or polyuria Hematologic/Lymphatic Hematologic/Lymphatic: Denies easy bleeding, easy bruising or lymphadenopathy Allergic/Immunologic Allergic/Immunologic: Denies itchy eyes, lip swelling, seasonal rhinorrhea, rhinitis, throat swelling, tongue swelling, eczemia, wheezing or asthma Vital Signs Vital Signs Vital Signs: 11/03/24 07:53 11/03/24 07:53 11/03/24 08:41 Temperature 99.0 F 99.0 F Temperature Source Temporal Pulse Rate 76 76 Respiratory Rate 16 16 Respiratory Pattern Normal Blood Pressure 103/55 L 103/55 L Blood Pressure Mean 71 Blood Pressure Source Monitor Blood Pressure Position Semi-Fowlers Blood Pressure Location Right Arm Pulse Ox 99 99 Oxygen Delivery Method Room Air Room Air Weight Weight: 125 lb 10.616 oz Body Mass Index (BMI) 19.6 Physical Exam Const alert, oriented x3, no apparent distress and healthy appearing General Appearance: cooperative; Negative for anxious HEENT normocephalic Face and Sinus: normal facial exam Eyes EOMs intact bilaterally and no scleral icterus General Eye: normal appearance of both eyes Neck full ROM and supple Lymph Lymphatic: no lymphadenopathy noted Chest Chest: abnormal inspection of the chest Resp normal respiratory effort Effort and Inspection: able to speak in complete sentences Cardio regular rate GI soft to palpation and non-tender Inspection: gravid Palpation: soft; Negative for tender Back/Spine no CVA tenderness Extremity normal to inspection, full ROM and no clubbing, cyanosis or edema General Extremity: Negative for calf tenderness or edema Skin Lesions: no lesions Rashes: no rashes Psych mental status grossly normal Results Lab / Micro Data 11/03/24 07:50 Labs: Laboratory Results - last 24 hr 11/03/24 07:50: Sodium 139, Potassium 3.7, Chloride 108 H, Carbon Dioxide 26.0, Anion Gap 5, BUN 9, Creatinine 0.68, Estim Creat Clear Calc 105.89, Est GFR (MDRD) Af Amer 128, Est GFR (MDRD) Non-Af 106, BUN/Creatinine Ratio 13.3, Glucose 85, Calcium 8.7, Total Bilirubin 0.60, AST 15, ALT 20, Alkaline Phosphatase 40 L, Total Protein 6.8, Albumin 3.6, Globulin 3.2, Albumin/Globulin Ratio 1.1, Blood Type A POSITIVE, Antibody Screen NEGATIVE Assessment & Plan Assessment/Plan (1) SAB (spontaneous ): (2) Retained products of conception: PLAN: Plan After discussing the patient's diagnosis and treatment plan options, patient wishes to proceed with surgical management. I have discussed with the patient the risks, benefits, and alternatives of the procedure which include but are not limited to risks of anesthesia, bleeding, infection, possible damage to bowel, bladder, or surrounding vasculature which could lead to additional surgery to evaluate any complications. Patient agrees to procedure and wishes to proceed. ACOG/uptodate references given for additional information regarding procedure. plan for suction dilation and curettage
--- NOTE | 2024-11-03 09:25 | PCM.DC ---
Discharge Instructions Diet Discharge Diet: No restrictions DC O2, CPAP, BIPAP needs Home O2 Discharge instructions: No Dressing / Incision Discharge Activity: Return to Normal Activity, May Shower and May Take a Tub Bath (after 1 week) May resume sexual activity in: 1-2 weeks Weight Bearing Status: Weight bearing as tolerated Lifting Restrictions: none Dressing / Incision Call your doctor if you observe: Fever of 101 or Higher, Using more than 1 pad per hour, Shortness of breath and Uncontrolled pain Follow Up Care Please Follow Up With: Valerie Garcia DO When: Call [phone] to schedule appointment. Test Results: Test results from this visit will be discussed in further detail at your follow-up appointment, if applicable. Discharge Plan Admission Primary Reason for Your Visit: dilation and curettage Attending Provider: Valerie Garcia Primary Care Provider: Alejo Sands NP Instructions Print Language: British Discharge Orders/Prescriptions Prescriptions: No Action DHA 200 mg capsule 200 mg PO DAILY Referrals / Follow Up: Alejo Sands NP, DRUG ABUSE RESISTANCE EDUCATION OFFICER-C [Primary Care Provider] - Disposition Disposition (needs filled in before D/C Order can be placed): Home, Self Care
--- NOTE | 2024-11-03 09:54 | PCM.OPRPT ---
Problems Associated Problem List Diagnoses (1) Retained products of conception: (2) SAB (spontaneous ): Multi Select Codes Urinary/Genital Urinary/Genital CPT Codes: 98895 Surg Trtmt missed Ab 1TM Operative Report (Standard) Operative Information Date of Procedure: 11/03/24 Pre-Operative Diagnosis: retained products of conception following spontaneous Post-Operative Diagnosis: retained products of conception following spontaneous Surgery/Procedure Performed: suction dilation and curettage it compliance manager: No Type of Anesthesia: MAC and Topical Anesth RN Documented Start/Stop Times: Operation Date: 11/03/24 09:00 Case Time Into Pre-Op 11/03/24 07:30 Anesthesia Start 11/03/24 09:28 Into Room 11/03/24 09:28 Procedure Start 11/03/24 09:43 Procedure Start Time: 09:43 Procedure Stop Time: 09:55 Select all DRAINS/GRAFTS/IMPLANTS that apply: None Estimated Blood Loss: 30cc Specimen collected: Yes Description of specimen(s) removed: endometrial curetting's Description of surgery: Patient was taken to the operating room and placed under MAC local anesthesia. She was prepped and draped in the normal sterile fashion the dorsal lithotomy position. Bladder was drained of clear urine and anterior lip of the cervix was grasped and the uterus sounded to 10cm. Cervix was progressively dilated to allow passage of a size 7 suction curette. Progressive passes were made removing the retained products of conception without complication. Sharp curettage confirmed complete removal of the retained products. All instruments were removed from the vagina and excellent hemostasis was noted and the patient was taken to recovery in stable condition. Surgical Findings: mild amount of retained products of conception. normal cervix and vagina. Complications Complications: No Admit VTE Documentation VTE Present on Admission: No VTE Mechan Device Prophylaxis: [facility]'s VTE Pharm Prophylaxis ordered?: No
--- NOTE | 2024-11-03 10:07 | PCM.POST.ANE ---
Anesthesia: Postop Eval I Current Vital Signs Temperature: 98.1 F Pulse Rate: 80 Blood Pressure: 90/54 Respiratory Rate: 20 Pulse Ox: 100 Oxygen Delivery Method: Venturi Mask Oxygen Flow Rate (L/min): 6 Assessment Airway patent: Yes Spontaneous unlabored respirations: Yes Mental status: Awake nausea: No Vomiting: No Anesthesia Complication: No Fluid Hydration Crystalloid volume administer (ml): 900 Total IV fluid infused: 900 Progress Note Anesthesia document: Postop Eval 1 completed: Yes
--- NOTE | 2024-11-03 19:05 | POSTOPAN2_ITS ---
Anesthesia Postop Eval I Sum Postop Eval Completion status Anesthesia document: Postop Eval 1 completed: Yes Anesthesia Postop Eval I Summary Anesthesia Postop Eval I Summary: Anesthesia Postop Eval I: Assessment Summary Airway patent Yes 11/03/24 10:09 [email or web address] Spontaneous unlabored Yes 11/03/24 10:09 [email or web address] respirations Mental status Awake 11/03/24 10:09 [email or web address] nausea No 11/03/24 10:09 [email or web address] Vomiting No 11/03/24 10:09 [email or web address] Anesthesia Postop Eval I: Fluid Summary Crystalloid volume administer 900 11/03/24 10:09 [email or web address] (ml) Colloids volume administered ( ml) Blood Product volume administered (ml) Total IV fluid infused 900 11/03/24 10:09 [email or web address] Anesthesia Postop Eval I: Summary Notes Anesthesia Complication No 11/03/24 10:09 [email or web address] Anesthesia Complication Comment: Post-operative progress note Anesthesia: Postop Eval II Evaluation Mental status: Awake and Calm Pain Level: 1 nausea: No Vomiting: No Complications Anesthesia Complication: No
--- NOTE | 2024-11-03 19:05 | PCM.POSTANE2 ---
Anesthesia Postop Eval I Sum Postop Eval Completion status Anesthesia document: Postop Eval 1 completed: Yes Anesthesia Postop Eval I Summary Anesthesia Postop Eval I Summary: Anesthesia Postop Eval I: Assessment Summary Airway patent Yes 11/03/24 10:09 CONTRACT [email or web address] Spontaneous unlabored Yes 11/03/24 10:09 CONTRACT [email or web address] respirations Mental status Awake 11/03/24 10:09 CONTRACT [email or web address] nausea No 11/03/24 10:09 CONTRACT DRIVER.[email or web address] Vomiting No 11/03/24 10:09 CONTRACT DRIVER.[email or web address] Anesthesia Postop Eval I: Fluid Summary Crystalloid volume administer 900 11/03/24 10:09 CONTRACT DRIVER.[email or web address] (ml) Colloids volume administered ( ml) Blood Product volume administered (ml) Total IV fluid infused 900 11/03/24 10:09 CONTRACT DRIVER.[email or web address] Anesthesia Postop Eval I: Summary Notes Anesthesia Complication No 11/03/24 10:09 CONTRACT [email or web address].[email or web address] Anesthesia Complication Comment: Post-operative progress note Anesthesia: Postop Eval II Evaluation Mental status: Awake and Calm Pain Level: 1 nausea: No Vomiting: No Complications Anesthesia Complication: No
== END 2024-11-03 11:20 | disposition home or self-care (01) ==
LOC: SDC 07:24 → AC 07:25
PROVIDERS: PCP Nurse Practitioner Family; Referring Provider Obstetrics & Gynecology; Visit Provider Obstetrics & Gynecology
PROC: (CPT 59820; principal; 2024-11-03 08:45)
DX: O03.9 Complete or unspecified spontaneous abortion without complication (principal); J45.909 Unspecified asthma, uncomplicated
CPT/HCPCS: 59820; 01965; 80053; 86850; 86900; 86901; 88305; A4216; J2405

== ENCOUNTER → 2024-11-09 | Outpatient (CLI) | payer MEDICAID, SELFPAY | END | disposition home or self-care (01) | LOC: LABSPEC 11:44 | PROVIDERS: PCP Nurse Practitioner Family; Referring Provider Obstetrics & Gynecology; Visit Provider Obstetrics & Gynecology | DX: R10.2 Pelvic and perineal pain (principal) | CPT/HCPCS: 87070; 87205 ==